=== PATIENT | male | born 1940 | race Caucasian/White ===

== ENCOUNTER → 2018-02-19 08:31 | Outpatient (CLI) | payer MEDICARE, OTHER, SELFPAY ==
--- NOTE | 2018-02-19 08:33 | ECHOCS_ITS ---
Reason For Study: Afib, Aflutter Procedure This was a 2D Doppler, Color Flow transthoracic echocardiogram. Exam performed in department. Left Ventricle Normal LV size. Left ventricular systolic function is normal. The estimated ejection fraction is 65 %. Unable to assess diastolic dysfunction due to arrhythmia. No regional wall motion abnormalities noted. Right Ventricle Normal RV size. Normal systolic function. Atria The left atrium is moderately enlarged. Normal right atrium. Mitral Valve Normal mitral valve. Mild (1+) eccentric mitral valve insufficiency. Tricuspid Valve Normal tricuspid valve. Mild (1+) tricuspid valve insufficiency. Pulmonary artery systolic pressure is 35 mmHg. Aortic Valve Trisinus/trileaflet aortic valve. Pulmonic Valve Normal pulmonic valve. Great Vessels Calcified aortic root. The pulmonary artery is normal size. Normal inferior vena cava. Pericardium/Pleural No pericardial effusion. Medication Definity0.4ml given slow IV push to enhance endocardial definition. MMode/2D Measurements & Calculations LVIDd: 5.8 cm IVSd: 0.82 cm Ao root diam: 3.2 cm LVIDs: 3.7 cm LVPWd: 0.94 cm RVDd: 4.9 cm FS: 36.3 % LAV(MOD-bp): 84.6 ml LAV(MOD-bp) Indexed: 38.2 ml/m2 LA A4 area: 25.7 cm2 RA A4 area: 18.6 cm2 LAV(MOD-sp2): 91.2 ml LAV(MOD-sp4): 77.2 ml Doppler Measurements & Calculations MV E max bisi: 111.1 cm/sec Ao V2 max: 162.9 cm/sec LV V1 max: 114.8 cm/sec Ao max P.6 mmHg LV V1 max P.3 mmHg Ao V2 mean: 122.5 cm/sec Ao mean P.5 mmHg Ao V2 VTI: 35.8 cm PA V2 max: 135.7 cm/sec TR max bisi: 278.7 cm/sec TR max P.1 mmHg Interpretation Summary Normal LV size. Left ventricular systolic function is normal. The estimated ejection fraction is 65 %. Unable to assess diastolic dysfunction due to arrhythmia. Contrast injection was performed. Ordering Physician: Guillermo Downey Referring Physician: Brody Gonzalez Performed By: Jenny Bowers RDCS, RVT
== END ==
PROVIDERS: Family Provider Family Medicine; PCP Family Medicine; Visit Provider Internal Medicine Cardiovascular Disease
DX: R06.09 Other forms of dyspnea (principal); I48.91 Unspecified atrial fibrillation
CPT/HCPCS: 93306; Q9957; A4216; C8929

== ENCOUNTER → 2018-10-01 06:15 | Outpatient (CLI) | payer MEDICARE, OTHER, SELFPAY ==
[2018-09-19 13:56] VITALS: BMI 34.7
[2018-10-01 10:05] LABS: Anion Gap 7 (5-15); BUN 20 mg/dL (7-18); BUN/Creat Ratio 16.5 RATIO (10-20); Calcium,Total 9.2 mg/dL (8.5-10.1); Chloride 106 mmol/L (98-107); Creatinine, Serum 1.21 mg/dL (0.70-1.30); EST Glomerular Filtration Rate 62 mL/min (>60); Est Glom Filt Rate - Afr Amer 74 mL/min (>60); Glucose 98 mg/dL (74-106); Potassium 4.1 mmol/L (3.5-5.1); Sodium Level 140 mmol/L (136-145)
--- NOTE | 2018-10-01 11:00 | STRESSREP ---
Stress Test Report Exercise myocardial perfusion stress test. 77-year-old man with a history of atrial fibrillation. Stress protocol: Resting EKG demonstrates atrial for ablation with a rate of 66 bpm normal intervals are noted resting blood pressure 138/74 mmHg. Patient exercised according to regular Kirby protocol for a total duration of 6 minutes the maximum heart rate attained was 127 bpm which was 89% of maximum predicted heart rate the maximum workload was 7 metabolic equivalents. At rest there were no ST or T wave changes noted suggest ischemia at peak exercise upsloping ST changes only were noted with normally the criteria for ischemia. The patient maintained atrial fibrillation throughout the recording. The resting blood pressure 138/74 with a final blood pressure 142/80 mmHg. Myocardial perfusion protocol. 14.7 mCi of technetium 99m sestamibi was injected at rest. The patient exercised according to regular Kirby protocol. At peak exercise 44.6 mCi of technetium 99m sestamibi was injected stress images were obtained stress and rest images were reconstructed and compared in the short axis vertical long horizontal long axis. Gated images were also obtained Perfusion SPECT analysis: Review of the stress images demonstrate normal uptake of tracer noted in all areas of the myocardium. The resting images similarly demonstrate normal uptake of tracer noted in all the rest of the myocardium. No obvious areas of reversibility are noted suggest ischemia. Gated SPECT analysis: The gated ejection fraction is noted to be 61%. Conclusion: Exercise myocardial perfusion stress test with no evidence of ischemia at a moderate workload. No clinical angina noted. Atrial fibrillation noted. Preserved ejection fraction.
--- OUTSIDE RECORDS SUMMARY | 2018-12-03 01:34 | XMS RPT_ITS ---
:1940 Author Organization [employer] Address [address] [place] [address] Phone Care Team Providers Name Role Phone Yannick Knight MD Unavailable Reason for Visit Reason For Visit Description Start Date Postop - subsequent visit Preliminary reason for visit data, not yet signed by the author as of right shoulder post Right shoulder arthroscopic rotator cuff repair decompression acromioplasty glenohumeral debridement biceps tenotomy on 12/02/2017 Preliminary reason for visit data, not yet signed by the author as of Chief Complaint Chief Complaint Description Start Date right shoulder post Right shoulder arthroscopic rotator cuff repair decompression acromioplasty glenohumeral debridement biceps tenotomy on 12/02/2017 Preliminary chief complaint data, not yet signed by the author as of Instructions Instruction Description Start Date CompletedPlease follow-up with Primary Care Physician or Chief Cruiser for treatment or adjustment of medication regarding elevated blood pressure.Patient advised to follow-up with Primary Care Physician for BMI management. Plan of Care Type Date Detail Appointment 11:00 AM Yannick Knight MD, [address] [facility], [facility], [place], [address], Appointment 11:45 AM Wilmer Franco PT, [address], [place], [address], Patient education \cps-[email or web address]\[email or web address]\htn. pdf Medications Medication Instructions Start Stop Generic Name NDC Provider Date Date FUROSEMIDE TABS 25mg daily FUROSEMIDE TABS 58813856100 Yannick Knight MD PERCOCET 5-325 1-2 every 6 / OXYCODONE-ACETA 33658936525 Yannick S MG TABS hours tablet as 02 MINOPHEN Eugene EDUARDO needed for pain XARELTO 20 MG 1 tablet daily / RIVAROXABAN 52911935678 Nayla TABS 09 [employer] GLUCOSAMINE 1 tablet daily / MISC NATURAL 05206886394 Nayla CHONDROITIN MSM 09 PRODUCTS [employer] TABS ASPIRIN ADULT 1 tablet daily / ASPIRIN 83680009131 Nayla LOW DOSE 81 MG 09 [employer] TBEC METOPROLOL 1 tablet daily / METOPROLOL 95658717619 Nayla SUCCINATE ER 25 09 SUCCINATE [employer]GER MG [id number] ATORVASTATIN 1 tablet daily / ATORVASTATIN 25866838693 Nayla CALCIUM 20 MG 09 CALCIUM [employer] TABS MULTI-VITAMINS 1 tablet daily / MULTIPLE 91279361750 Nayla TABS 09 VITAMIN [employer] RAMIPRIL 10 MG 1 tablet daily / RAMIPRIL 65593111526 Yannick S CAPS 09 Eugene EDUARDO Conditions or Problems Problem Name Problem Onset Status Entry Provider Comment Standard Annotate Code Date Date Description Biceps tendon 064481389 Active Yannick Mata Tear of TRAUMATIC tear (SNOMED CT) / Eugene EDUARDO biceps DUE TO brachii FALL tendon Complete tear 517902807 Active Yannick Mata Full [facility] right [facility] Eugene EDUARDO thickness DUE TO rotator cuff rotator cuff FALL tear Impingement 144096915 Active Yannick Mata Impingement syndrome of (SNOMED CT) Eugene EDUARDO syndrome of right shoulder shoulder region Allergies, Adverse Reactions, Alerts Observed no known allergies at Social History No information available. Vital Signs Date Name Value Unit Description BMI (Body Mass 33.12 kg/m2 Body Mass Index Index) [Ratio] Preliminary vital sign data, not yet signed by the author as of BP Diastolic 71 mm[Hg] blood pressure, diastolic Preliminary vital sign data, not yet signed by the author as of BP Diastolic 82 mm[Hg] blood pressure, diastolic, second observation Preliminary vital sign data, not yet signed by the author as of BP Systolic 151 mm[Hg] blood pressure, systolic Preliminary vital sign data, not yet signed by the author as of BP Systolic 146 mm[Hg] blood pressure, systolic, second observation Preliminary vital sign data, not yet signed by the author as of Heart Rate 69 /min pulse rate E&M Preliminary vital sign data, not yet signed by the author as of Height 70 [in_us] height E&M Preliminary vital sign data, not yet signed by the author as of Height 178 cm height in centimeters E&M Preliminary vital sign data, not yet signed by the author as of Weight Measured 230 [lb_av] weight E&M Preliminary vital sign data, not yet signed by the author as of Weight Measured 105 kg weight in kilograms E&M Preliminary vital sign data, not yet signed by the author as of Results Date Name Value Unit Range Flag Description Office Visit: Postop - subsequent visit, Rm: 14 MEDS REVIEW Done Documentation of current medications (procedure) Preliminary observation data, not yet signed by the author as of Preliminary observation data, not yet signed by the author as of Clinical Summary: [facility] OOP account number Procedures Code Procedure Name Date Entry Date CPT-83539 Physical Therapy G8730 Pain assessment documented as positive - follow-up documented G8427 Current medications documented 1036F Tobacco screening was negative - non user G8417 BMI documented as above normal parameters - follow-up documented G8950 Blood pressure outside of normal parameters - follow-up documented [facility]-[id number] Patient Encounter Medications Administered No information available. Immunizations No information available. Advance Directives There may be information available, but it has not been provided by the sender. Assessments There may be information available, but it has not been provided by the sender. Review of Systems There may be information available, but it has not been provided by the sender. Family History There may be information available, but it has not been provided by the sender. History of Past Illness There may be information available, but it has not been provided by the sender. History of Present Illness There may be information available, but it has not been provided by the sender.
--- OUTSIDE RECORDS SUMMARY | 2018-12-03 01:34 | XMS RPT_ITS ---
:1940 Author Organization [employer] Address [address] [facility] [place] [place] [address] Phone Care Team Providers Name Role Phone [...] as of Instructions Instruction Description Start Date CompletedPatient advised to follow-up with Primary Care Physician for BMI management. Plan of Care Type Date Detail Appointment 02:20 PM Yannick Knight MD, [address] [facility], [place], [address], Appointment 11:00 AM Yarely Sanchez PT, [address], [place], [address], Appointment 02:00 PM Yarely Sanchez PT, [address], [place], [address], Appointment 11:45 AM Yarely Sanchez PT, [address], [place], [address], Appointment 11:00 AM Yarely Daniel PT, [address], [place], [address], Appointment 12:30 PM Yarely Daniel PT, [address], [place], [address], Medications Medication Instructions Start Stop Generic Name ND Provider Date Date HYDROCHLOROTHIAZIDE 1 tablet HYDROCHLOROTHIAZIDE 32614605416 Nayla 25 MG TABS daily 12/17 [employer]CH[employer] TECHNICIAN PERCOCET 5-325 MG 1-2 every 6 OXYCODONE-ACETAMINOP 84139202508 Yannick Mata TABS hours tablet 12/09 JOSÉ LUIS Knight MD as needed for pain XARELTO 20 MG TABS 1 tablet RIVAROXABAN 89691690817 Nayla daily 10/18 [employer]CH[employer] TECHNICIAN GLUCOSAMINE 1 tablet MISC NATURAL 81020649532 Nayla CHONDROITIN MSM TABS daily 10/18 PRODUCTS [employer] MERCHANDISER TECHNICIAN ASPIRIN ADULT LOW 1 tablet ASPIRIN 55524664040 Nayla DOSE 81 MG TBEC daily 10/18 [employer] MERCHAND[employer]ER TECHNICIAN METOPROLOL SUCCINATE 1 tablet METOPROLOL SUCCINATE 62993184282 Nayla ER 25 MG [id number] daily 10/18 [employer] RET[employer] MERCHANDISER TECHNICIAN ATORVASTATIN CALCIUM 1 tablet ATORVASTATIN CALCIUM 26957254645 Nayla 20 MG TABS daily 10/18 [employer] MERCHANDISER TECHNICIAN MULTI-VITAMINS TABS 1 tablet MULTIPLE VITAMIN 03588276553 Nayla daily 10/18 [employer]CH[employer] TECHNICIAN RAMIPRIL 10 MG CAPS 1 tablet RAMIPRIL 53444468932 Yannick Mata daily 10/18 Eugene EDUARDO Conditions or Problems Problem Name Problem Onset Status Entry Provider Comment Standard Annotate Code Date Date Description Biceps tendon 104392833 Active Yannick Mata Tear of TRAUMATIC tear (SNOMED CT) / Eugene EDUARDO biceps DUE TO brachii FALL tendon Complete tear 495539545 Active Yannick Mata Full TRAUMATIC of right (SNOMED CT) / Eugene EDUARDO thickness DUE TO rotator cuff rotator cuff FALL tear Impingement 953865204 Active Yannick S Impingement syndrome of (SNOMED CT) / Eugene EDUARDO syndrome of right shoulder shoulder region Allergies, Adverse Reactions, Alerts Observed no known allergies at Social History No information available. Vital Signs Date Name Value Unit Description BMI (Body Mass 34.56 kg/m2 Body Mass Index Index) [Ratio] Preliminary vital sign data, not yet signed by the author as of BP Diastolic 72 mm[Hg] blood pressure, diastolic Preliminary vital sign data, not yet signed by the author as of BP Systolic 137 mm[Hg] blood pressure, systolic Preliminary vital sign data, not yet signed by the author as of Heart Rate 64 /min pulse rate E&M Preliminary vital sign data, not yet signed by the author as of Height 70 [in_us] height E&M Preliminary vital sign data, not yet signed by the author as of Height 178 cm height in centimeters E&M Preliminary vital sign data, not yet signed by the author as of Weight Measured 240 [lb_av] weight E&M Preliminary vital sign data, not yet signed by the author as of Weight Measured 109 kg weight in kilograms E&M Preliminary vital sign data, not yet signed by the author as of Results Date Name Value Unit Range Flag Description Office Visit: Postop - subsequent visit, Rm: 15 MEDS REVIEW Done Documentation of current medications (procedure) Preliminary observation data, not yet signed by the author as of Preliminary observation data, not yet signed by the author as of Clinical Summary: [facility] OOP account number Clinical Summary: [facility] PTOPACCTNUMB [id number] GPT Physical Therapy Outpatient Account Number Procedures Code Procedure Name Date Entry Date CPT-11999 Physical Therapy G8730 Pain assessment documented as positive - follow-up documented G8427 Current medications documented 1036F Tobacco screening was negative - non user G8417 BMI documented as above normal parameters - follow-up documented G8783 Blood pressure within normal parameters - no follow-up required [facility]-[id number] Patient Encounter Medications Administered No information available. [...]
--- OUTSIDE RECORDS SUMMARY | 2018-12-03 01:34 | XMS RPT_ITS ---
:1940 Author Organization [employer] Address [address] [facility] [place] [address] Phone Care Team Providers Name Role Phone Yannick Knight MD Reason for Visit Reason For Visit Description [...] Plan of Care Type Date Detail Appointment 01:00 PM Yannick Knight MD, [address] [facility], [place], [address], Appointment 02:00 PM Jean-Pierre Ayala MD, [address] [facility], [address], [place], [address], Medications Medication Instructions Start Stop Generic Name NDC Provider Date Date HYDROCHLOROTHIAZIDE 1 tablet HYDROCHLOROTHIAZIDE 71716145290 Nayla 25 MG TABS daily 12/17 [employer]STER[employer] PROGRAMMER XARELTO 20 MG TABS 1 tablet RIVAROXABAN 83642885068 Nayla daily 10/18 [employer] PROGRAMMER GLUCOSAMINE 1 tablet MISC NATURAL 00488690499 Nayla CHONDROITIN MSM TABS daily 10/18 PRODUCTS [employer]STER[employer] PROGRAMMER METOPROLOL SUCCINATE 1 tablet METOPROLOL SUCCINATE 86960765930 Nayla ER 25 MG [id number] daily 10/18 [employer]STER[employer] PROGRAMMER ATORVASTATIN CALCIUM 1 tablet ATORVASTATIN CALCIUM 36367304736 Nayla 20 MG TABS daily 10/18 [employer]STER[employer] PROGRAMMER MULTI-VITAMINS TABS 1 tablet MULTIPLE VITAMIN 10595700093 Nayla daily 10/18 [employer] PROGRAMMER RAMIPRIL 10 MG CAPS 1 tablet RAMIPRIL 77690893956 Yannick Esperanza daily 10/18 Eugene EDUARDO Conditions or Problems Problem Name Problem Onset Status Entry Provider Comment Standard Annotate Code Date Date Description Biceps tendon 689613696 Active Yannick Esperanza Tear of TRAUMATIC tear (SNOMED CT) Knightelda EDUARDO biceps DUE TO brachii FALL tendon Complete tear 752073540 Active Yannick Mata Full TRAUMATIC of right (SNOMED CT) Knightelda EDUARDO thickness DUE TO rotator cuff rotator cuff FALL tear Impingement 563366432 Active Yannick Esperanza Impingement syndrome of (SNOMED CT) Eugene EDUARDO syndrome of right shoulder shoulder region Allergies, Adverse Reactions, Alerts Observed no known allergies at Social History No information available. Vital Signs Date Name Value Unit Description BMI (Body Mass 33.98 kg/m2 Body Mass Index Index) [Ratio] Preliminary vital sign data, not yet signed by the author as of BP Diastolic 82 mm[Hg] blood pressure, diastolic Preliminary vital sign data, not yet signed by the author as of BP Systolic 132 mm[Hg] blood pressure, systolic Preliminary vital sign data, not yet signed by the author as of Heart Rate 74 /min pulse rate E&M Preliminary vital sign data, not yet signed by the author as of Height 70 [in_us] height E&M Preliminary vital sign data, not yet signed by the author as of Height 178 cm height in centimeters E&M Preliminary vital sign data, not yet signed by the author as of Weight Measured 236 [lb_av] weight E&M Preliminary vital sign data, not yet signed by the author as of Weight Measured 107 kg weight in kilograms E&M Preliminary vital sign data, not yet signed by the author as of Results Date Name Value Unit Range Flag Description Office Visit: Postop - subsequent visit, Rm: 17 MEDS REVIEW Done Documentation of current medications (procedure) Preliminary observation data, not yet signed by the author as of Preliminary observation data, not yet signed by the author as of Clinical Summary: [facility] OOP account number Procedures Code Procedure Name Date Entry Date G8730 Pain assessment documented as positive - follow-up documented G8427 Current medications documented 1036F Tobacco screening was negative - non user G8417 BMI documented as above normal parameters - follow-up documented G8783 Blood pressure within normal parameters - no follow-up required [facility]-[id number] Patient Encounter Medications Administered No information available. [...]
--- OUTSIDE RECORDS SUMMARY | 2018-12-03 01:34 | XMS RPT_ITS ---
:1940 Author Organization [employer] Address [address] [place] [address] Phone Care Team Providers Name Role Phone Jamie EDUARDO, Jean-Pierre Mcadams Reason for Visit Reason For Visit Description Start Date New/Est - 1st visit with physician Preliminary reason for visit data, not yet signed by the author as of left foot pain Preliminary reason for visit data, not yet signed by the author as of Chief Complaint Chief Complaint Description Start Date left foot pain Preliminary chief complaint data, not yet signed by the author as of Instructions Instruction Description Start Date CompletedPatient advised to follow-up with Primary Care Physician for BMI management. Plan of Care No information available. Medications Medication Instructions Start Stop Generic Name NDC Provider Date Date HYDROCHLOROTHIAZIDE 1 tablet HYDROCHLOROTHIAZIDE 10235775589 Nayla 25 MG TABS daily 12/17 [employer] D[employer] MECHANIC XARELTO 20 MG TABS 1 tablet RIVAROXABAN 08954532693 Nayla daily 10/18 [employer]CH[employer]IC GLUCOSAMINE 1 tablet MISC NATURAL 08047745280 Nayla CHONDROITIN MSM TABS daily 10/18 PRODUCTS [employer] MECHANIC METOPROLOL SUCCINATE 1 tablet METOPROLOL SUCCINATE 68719997114 Nayla ER 25 MG [id number] daily 10/18 [employer] D[employer] MECHANIC ATORVASTATIN CALCIUM 1 tablet ATORVASTATIN CALCIUM 98784398528 Nayla 20 MG TABS daily 10/18 [employer] D[employer] MECHANIC MULTI-VITAMINS TABS 1 tablet MULTIPLE VITAMIN 49180869855 Nayla daily 10/18 [employer] D[employer] MECHANIC RAMIPRIL 10 MG CAPS 1 tablet RAMIPRIL 96900777503 Yannick Christian daily 10/18 Eugene EDUARDO Conditions or Problems Problem Name Problem Code Onset Status Entry Provider Comment Standard Annotate Date Date Description 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) 05/15 05/15 Jamie EDUARDO 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 Jamie arteriosclerosi MD christian Biceps 726425088 Active Yannick Christian Tear of biceps TRAUMATIC tendon tear (SNOMED CT) 10/18 10/18 Eugene EDUARDO brachii tendon DUE TO FALL Complete 216808431 Active Yannick Christian Full thickness TRAUMATIC tear of (SNOMED CT) 10/18 10/18 Eugene EDUARDO rotator cuff DUE TO right tear FALL rotator cuff Impingement 736901617 Active Yannick Christian Impingement syndrome of (SNOMED CT) 10/18 10/18 Eugene EDUARDO syndrome of right shoulder region shoulder Allergies, Adverse Reactions, Alerts Observed no known allergies at Social History No information available. Vital Signs Date Name Value Unit Description BMI (Body Mass 33.98 kg/m2 Body Mass Index Index) [Ratio] Preliminary vital sign data, not yet signed by the author as of BP Diastolic 79 mm[Hg] blood pressure, diastolic Preliminary vital sign data, not yet signed by the author as of BP Systolic 131 mm[Hg] blood pressure, systolic Preliminary vital sign data, not yet signed by the author as of Heart Rate 68 /min pulse rate E&M Preliminary vital sign [...] Value Unit Range Flag Description Office Visit: New/Est - 1st visit with physician, Rm: 12 MEDS REVIEW Done Documentation of current medications (procedure) Preliminary observation data, not yet signed by the author as of Preliminary observation data, not yet signed by the author as of Clinical [facility] Office Visit: Postop - subsequent visit, Rm: 17 MEDS REVIEW Done Documentation of current medications (procedure) Clinical Summary: [facility] Procedures Code Procedure Name Date Entry Date CPT-40292 XR FOOT 3+ VWS-LT G8730 Pain assessment documented as positive - follow-up documented G8427 Current medications documented 1036F Tobacco screening was negative - non user G8417 BMI documented as above normal parameters - follow-up documented G8783 Blood pressure within normal parameters - no follow-up required 1100F Fallen more than twice or injured themselves from a fall documented 3288F-8P Falls risk not documented - reason not given 0518F-8P Falls plan of care not done for unspecified reasons [id number] Patient Encounter Medications Administered No information available. [...]
--- OUTSIDE RECORDS SUMMARY | 2018-12-03 01:34 | XMS RPT_ITS ---
:1940 Author Organization [employer] Address [address] [place] [address] [place] [address] Phone Care Team Providers Name Role Phone Yannick Knight MD Reason for Visit Reason For Visit Description Start Date Postop - 1st visit Preliminary reason for visit data, not [...] CompletedPlease follow-up with Primary Care Physician or Cash Shortage Investigator for treatment or adjustment of medication regarding elevated blood pressure.Patient advised to follow-up with Primary Care Physician for BMI management. Plan of Care Type Date Detail Appointment 02:00 PM Yannick Knight MD, [address] [facility], [address], [place], [id number], Appointment 11:00 AM Yannick Knight MD, [address] [facility], [address], [place], [address], Patient education [email or web address] Medications Medication Instructions Start Stop Generic Name NDC Provider Date Date PERCOCET 5-325 1-2 every 6 / OXYCODONE-ACETA [id number] Yannick S MG TABS hours tablet as 02 MINOPHEN Eugene EDUARDO needed for pain XARELTO 20 MG 1 tablet daily / RIVAROXABAN [id number] Nayla TABS 09 [employer] GLUCOSAMINE 1 tablet daily / MISC NATURAL [id number] Nayla CHONDROITIN MSM 09 PRODUCTS [employer] TABS ASPIRIN ADULT 1 tablet daily / ASPIRIN [id number] Nayla LOW DOSE 81 MG 09 [employer] TBEC METOPROLOL 1 tablet daily / METOPROLOL [id number] Nayla SUCCINATE ER 25 09 SUCCINATE [employer] MG [id number] ATORVASTATIN 1 tablet daily / ATORVASTATIN [id number] Nayla CALCIUM 20 MG 09 CALCIUM [employer] TABS MULTI-VITAMINS 1 tablet daily / MULTIPLE [id number] Nayla TABS 09 VITAMIN [employer] RAMIPRIL 10 MG 1 tablet daily / RAMIPRIL [id number] Yannick S CAPS 09 Eugene EDUARDO LASIX 40 MG 1 tablet daily / FUROSEMIDE [id number] Yannick S TABS 09 Eugene EDUARDO Conditions or Problems Problem Name Problem Onset Status Entry Provider Comment Standard Annotate Code Date Date Description Biceps tendon 636213877 Active Yannick S Tear of TRAUMATIC tear (SNOMED CT) / Eugene EDUARDO biceps DUE TO brachii FALL tendon Complete tear 363991443 Active Yannick Mata Full TRAUMATIC of right (SNOMED CT) Eugene EDUARDO thickness DUE TO rotator cuff rotator cuff FALL tear Impingement 129540015 Active Yannick S Impingement syndrome of (SNOMED CT) Eugene EDUARDO syndrome of right shoulder shoulder region Allergies, Adverse Reactions, Alerts Observed no known allergies at Social History No information available. Vital Signs Date Name Value Unit Description BMI (Body Mass 33.84 kg/m2 Body Mass Index Index) [Ratio] Preliminary vital sign data, not yet signed by the author as of BP Diastolic 77 mm[Hg] blood pressure, diastolic Preliminary vital sign data, not yet signed by the author as of BP Systolic 156 mm[Hg] blood pressure, systolic Preliminary vital sign data, not yet signed by the author as of Heart Rate 67 /min pulse rate E&M Preliminary vital sign data, not yet signed by the author as of Height 70 [in_us] height E&M Preliminary vital sign data, not yet signed by the author as of Height 178 cm height in centimeters E&M Preliminary vital sign data, not yet signed by the author as of Weight Measured 235 [lb_av] weight E&M Preliminary vital sign data, not yet signed by the author as of Weight Measured 107 kg weight in kilograms E&M Preliminary vital sign data, not yet signed by the author as of Results Date Name Value Unit Range Flag Description Office Visit: Postop - 1st visit, Rm: 17 MEDS REVIEW Done Documentation [...] as above normal parameters - follow-up documented [id number] Patient Encounter Medications Administered No information available. [...]
--- OUTSIDE RECORDS SUMMARY | 2018-12-03 01:35 | XMS RPT_ITS ---
:1940 Author Organization OHIP Support Name Relationship Address Phone R Unavailable Unavailable Unavailable FERRARI, AMNA Unavailable [address] + [place] [address] ELDBE Unavailable [address] + [place] [address] FERRARI, AMNA Unavailable [address] + [place] [address] ELDBE Unavailable [address] + [place] [address] FERRARI, AMNA Unavailable [address] + [place] [address] R Unavailable Unavailable Unavailable FERRARI, AMNA Unavailable [address] + [place] [address] ELDBE Unavailable [address] + [place] [address] FERRARI, AMNA Unavailable [address] + [place] [address] ELDBE Unavailable [address] + [place] [address] FERARRI, AMNA Unavailable [address] + [place] [address] ELDBE Unavailable [address] + [place] [address] FERRARI, AMNA Unavailable [address] + [place] [address] ELDBE Unavailable [address] + [place] [address] FERRARI, AMNA Unavailable [address] + [place] [address] ELDBE Unavailable [address] + [place] [address] FERRARI, AMNA Unavailable [address] + [place] [address] ELDBE Unavailable [address] + [place] [address] DRE FERRARILY Unavailable [address] + [place] [address] ELDBE Unavailable [address] + [place] [address] VONDA AMNA Unavailable [address] + [place] [address] Care Team Providers Name Role Phone Gabi Howard Attending Unavailable DOCTOR, OUT OF TOWN Referring Unavailable Yoko Lock Attending Unavailable Nasreen, Guillermo Attending Unavailable NOT, DEFINED Referring Unavailable Nasreen, Waymart Attending Unavailable Nasreen, Waymart Referring Unavailable MANCINI, RONALDO Primary Care Unavailable Nasreen, Guillermo Attending Unavailable MANCINI, RONALDO Referring Unavailable Sublette, Onel Primary Care Unavailable Roof, Dominic Guzman Attending Unavailable MANCINI, RONALDO Referring Unavailable Sublette, Onel Primary Care Unavailable Nasreen, Guillermo Attending Unavailable Sublette, Onel Referring Unavailable Nasreen, Guillermo Attending Unavailable Nasreen, Guillermo Referring Unavailable MANCINI, RONALDO Primary Care Unavailable Nasreen, Guillermo Attending Unavailable Kirby Barrios Attending Unavailable Sublette, Onel Referring Unavailable Roof, Dominic Guzman Attending Unavailable MANCINI, RONALDO Referring Unavailable MANCINI, RONALDO Primary Care Unavailable Mancini, April Iniguez Attending Unavailable Mancini, A Hira Primary Care Unavailable PROBLEMS PROBLEMS DATE TYPE CONDITION / CODE ATTENDING STATUS SOURCE Unknown Z95.1 - Presence of Nasreen, Guillermo Active [place] 9 aortocoronary bypass Community graft / Z95.1(ICD-10) Hospital Repository Unknown I10 - Essential (primary) Nasreen, Waymart Active [place] 9 hypertension / Community I10(ICD-10) Hospital Repository Unknown E78.00 - Pure Nasreen, Guillermo Active [place] 9 hypercholesterolemia, Community unspecified / Hospital E78.00(ICD-10) Repository Unknown I48.1 - Persistent atrial Nasreen, Guillermo Active [place] 9 fibrillation / Community I48.1(ICD-10) Hospital Repository Unknown G47.33 - Obstructive Lee Active [place] 9 sleep apnea (adult) [facility] (pediatric) / Hospital G47.33(ICD-10) Repository Unknown E66.9 - Obesity, Howard, Active [place] 9 unspecified / [facility] E66.9(ICD-10) Hospital Repository Unknown I48.2 - Chronic atrial Lee, Active [place] 9 fibrillation / [facility] I48.2(ICD-10) Hospital Repository Admitting Unknown / UNK(Unknown) April Mancini Active [place] [address] [facility] [place] Repository Unknown I25.10 - Atherosclerotic Dominic Bowers Active [place] 8 heart disease of quechan Community coronary artery without Hospital angina pectoris / Repository I25.10(ICD-10) Unknown R06.09 - Other forms of Dominic Bowers Active [place] 8 dyspnea / R06.09(ICD-10) [facility] Repository Unknown E78.5 - Hyperlipidemia, Dominic Bowers Active [place] 8 unspecified / Community E78.5(ICD-10) Hospital Repository Unknown I48.91 - Unspecified Dominic Bowers Active [place] 8 atrial fibrillation / Community I48.91(ICD-10) Hospital Repository Unknown Z01.810 - Encounter for Guillermo Downey Active [place] 8 preprocedural [facility] examination / Repository Z01.810(ICD-10) Unknown E78.0 - Pure Guillermo Downey Active [place] 8 hypercholesterolemia / Community E78.0(ICD-10) Hospital Repository PROCEDURES PROCEDURES No Procedure Records FoundRESULTS RESULTS STRESS REPORT Observed: 10/01/2018 Status: F Source: [place] 11:06 AM [facility] REPOSITORY [facility] Services [address] [place] [address] MR#: [id number] Acct: [id number] Name: MARCI FERRARI Rep #: [id number] : 1940 77 From: Guillermo Downey MD Primary Care: RONALDO MANCINI Status: REG CLI Ordering Dr: Sex: M C Stress Test Report Exercise myocardial perfusion stress test. 77-year-old man with a history of atrial fibrillation. Stress protocol: Resting EKG demonstrates atrial for ablation with a rate of 66 bpm normal intervals are noted resting blood pressure 138/74 mmHg. Patient exercised according to regular Kirby protocol for a total duration of 6 minutes the maximum heart rate attained was 127 bpm which was 89% of maximum predicted heart rate the maximum workload was 7 metabolic equivalents. At rest there were no ST or T wave changes noted suggest ischemia at peak exercise upsloping ST changes only were noted with normally the criteria for ischemia. The patient maintained atrial fibrillation throughout the recording. The resting blood pressure 138/74 with a final blood pressure 142/80 mmHg. Myocardial perfusion protocol. 14.7 mCi of technetium 99m sestamibi was injected at rest. The patient exercised according to regular Kirby protocol. At peak exercise 44.6 mCi of technetium 99m sestamibi was injected stress images were obtained stress and rest images were reconstructed and compared in the short axis vertical long horizontal long axis. Gated images were also obtained Perfusion SPECT analysis: Review of the stress images demonstrate normal uptake of tracer noted in all areas of the myocardium. The resting images similarly demonstrate normal uptake of tracer noted in all the rest of the myocardium. No obvious areas of reversibility are noted suggest ischemia. Gated SPECT analysis: The gated ejection fraction is noted to be 61%. Conclusion: Exercise myocardial perfusion stress test with no evidence of ischemia at a moderate workload. No clinical angina noted. Atrial fibrillation noted. Preserved ejection fraction. 10/01/18 1106 <Electronically signed by Guillermo Downey MD> Date Guillermo Downey MD CC: RONALDO MANCINI; Guillermo Downey MD Date Dictated: 10/01/18 1100 Date Transcribed: 10/01/18 1100 Coiled Coil Inspector: CO Signed BASIC METABOLIC Collected: 10/01/2018 Status: F Source: [place] PROFILE (BMP) 9:03 AM [facility] REPOSITORY TYPE CODE TESTS RESULT OUT OF RANGE REFERENCE UNITS LAB L501.0100 74-106 mg/dL Normal GLU 98 Result Comment: Please note revised GLUCOSE reference range effective 2017. LAB L501.1000 7-18 mg/dL High BUN 20 LAB L501.1100 0.70-1.30 mg/dL Normal CREAT,SERUM 1.21 Result Comment: The validity of the calculated GFR AND GFRAA in patients over 70 years has not been determined. Clinical correlation is essential. LAB L501.1110 >60 mL/min Normal EST GFR 62 Result Comment: Non- GFR Calc LAB L501.1115 >60 mL/min Normal EST GFR - AA 74 Result Comment: GFR Calc LAB L501.1300 10-20 RATIO Normal BUN/CRE 16.5 LAB L501.2200 8.5-10.1 mg/dL CA Normal 9.2 LAB L501.5300 136-145 mmol/L NA Normal 140 LAB L501.5600 3.5-5.1 mmol/L K Normal 4.1 LAB L501.5900 98-107 mmol/L CL Normal 106 LAB L501.6100 21.0-32.0 mmol/L Normal CO2 27.0 LAB L501.6200 5-15 Normal GAP 7 Performed By: #### L500.2500 #### [facility] [address] [place], [place], [address] CARDIOLOGY VISIT Observed: 09/19/2018 Status: F Source: [place] REPORT 2:48 PM [facility] REPOSITORY [facility] [address] [place] [address] OFFICE VISIT Date of Service: 09/19/18 MR#: [id number] Acct: [id number] Name: MARCI FERRARI Rep #: [id number] : 1940 Provider: Guillermo Downey MD Age/Sex: 77/M [facility] [facility] Status: Signed HPI [facility] Chief Complaint: Follow-up visit Details: MARCI FERRARI, is a 77 M who presents to the office today for a follow-up. He has a history of coronary artery disease status post carotid bypass surgery in 2003 with BUTTS to LAD, SVG to obtuse marginal branch and SVG to posterior descending artery, atrial fibrillation status post ablation and subsequent failed cardioversion. He has complained of some fatigue when he is going up and down stairs as well as reduced exercise capacity. Occasionally he is also had some heartburn. He is not had to take a nitroglycerin. Is been compliant with all his medications and he exercises approximately 3 times a week. He unfortunately has not lost any weight despite all of his exercise. His last catheterization 2015 demonstrated patency of the saphenous vein graft to obtuse marginal branch and posterior descending artery and he did have distal LAD vessel disease which was not amenable to angioplasty. He did have an echocardiogram performed a few weeks ago with demonstrated preserved ejection fraction and severe biatrial enlargement. His right ventricular systolic pressure was estimated to be 35-40 mmHg. His physical exam here today demonstrates clear lung merino irregular regular heart rate and no pedal edema. Intake Vital Signs09/19/18 Height 5 ft 10 in Intake Visit Reasons: 6 M FU/STEAM TABLE ATTENDANT Allergies No Known Allergies Allergy (Verified 09/19/18 13:57) Medications Nitroglycerin [Nitrostat] 0.4 mg SUBLINGUAL Q5M PRN 04/09/16 [History Confirmed 09/19/18] Glucosam/Kuldeep-Msm1/C/Victoriano/Bosw [Osteo Bi-Flex Caplet] 1 ea PO DAILY 04/03/17 [History Confirmed 09/19/18] Multivitamin [Multiple Vitamins] 1 ea PO DAILY 04/03/17 [History Confirmed 09/19/18] hydrochlorothiazide 25 mg tablet 25 mg PO QDAY 09/26/17 [History Confirmed 09/19/18] atorvastatin 20 mg tablet 20 mg PO DAILY #90 tab 05/05/18 [Rx Confirmed 09/19/18] rivaroxaban 20 mg tablet 20 mg PO DAILY 05/07/18 [History Confirmed 09/19/18] ramipril 10 mg capsule 10 mg PO DAILY #90 cap 06/19/18 [Rx Confirmed 09/19/18] metoprolol succinate ER 25 mg tablet,extended release 24 hr 25 mg PO DAILY #30 tab 08/06/18 [Rx Confirmed 09/19/18] spironolactone 50 mg tablet 50 mg PO DAILY #90 tab 09/19/18 [Rx Confirmed 09/19/18] [facility] Medical History Persistent atrial fibrillation (Chronic) Atherosclerosis of coronary artery of quechan heart without angina pectoris (Chronic) Obesity (BMI 30.0-34.9) (Chronic) Hyperlipidemia (Chronic) TIA (transient ischemic attack) (Chronic) DANIAL (obstructive sleep apnea) (Chronic) Atherosclerosis (Chronic) Essential hypertension (Chronic) Arthritis (Chronic) GERD (gastroesophageal reflux disease) (Chronic) Hearing loss (Chronic) Bilateral hearing loss (Inactive) Bilateral inguinal hernia (Inactive) ADLER (dyspnea on exertion) (Inactive) Edentulous (Inactive) Preop cardiovascular exam (Inactive) Prepatellar bursitis (Inactive) Surgical History H/O coronary artery bypass surgery (Resolved 10/15/03) Repair left leg fracture (Resolved) History of cardioversion (Resolved 06/04/16) History of herniorrhaphy (Resolved) History of left heart catheterization (Resolved 04/11/16) History of radiofrequency ablation procedure for cardiac arrhythmia (Resolved 09/27/09) S/P rotator cuff repair (Resolved) Family History Sister CAD (coronary artery disease) Arthritis Mother CAD (coronary artery disease) Social History current occupational status: employed current occupation: [employer] Smoking Status: Former smoker quit date: 09/09/99 pack-years: 75 alcohol intake: current alcohol intake frequency: holidays/special occasions only substance use type: does not use caffeine: Yes Type: coffee Number of servings: 1 what type of physical activity do you participate in: none seatbelt use: always do you feel safe at home: Yes ROS Const Const: Positive for other (No problems breathing when working out); negative for fatigue, weakness, difficulty sleeping, frequent falls, excessive sweating or headache(s) Eyes Eyes: Negative for loss of peripheral vision, transient loss of vision, blurry vision, tunnel vision or double vision ENT ENT: Negative for headache(s), dizziness, Nosebleed/epistaxis or balance problems Cardio Chest Pain: No Palpitations: No Edema: None (C/O edema on the bottom of his feet) Muscle aches with walking: None Resp Respiratory: Positive for SOB with activity (When climbing stairs); negative for SOB at rest, SOB orthopnea\SOB lying down, paroxysmal nocturnal dyspnea or Cough GI GI: Positive for heartburn and belching; negative nausea, black,tarry stools or vomiting : Negative for hematuria Musc Musc: Negative for balance problems, muscle aches/ myalgia, muscle weakness or joint pain Skin Skin: Negative non-healing lesions, unusual bruising or rash Neuro Neuro: Negative for weakness, frequent falls, headache(s), blurry vision, double vision, dizziness, lightheadedness, orthostatic symptoms, near syncope, syncope or lack of coordination Jules Hematologic/Lymphatic: Negative for easy bruising or easy bleeding Endo Endo: Negative for fatigue, excessive sweating or increased thirst/drinking Psych Psych: Negative for anxiety or depression Allergy Allergy/Immunology: Negative for hives, Negative for rash Cardiology Exam Const Appearance: cooperative, healthy appearing, well developed, well groomed and no acute distress Nutritional Appearance: well nourished and average body habitus Orientation: alert, awake and oriented x3 Head Head: normal to inspection, normocephalic and atraumatic Ears: hearing grossly normal bilaterally and external ears normal Nose: external nose normal, nasal mucous membranes and turbinates normal, nares normal, septum normal, no nasal discharge Face and Sinus: face symmetric Mouth: oral mucosae normal, tongue normal, oropharynx normal and moist mucous membranes Teeth and gingiva: dentition normal Throat: posterior oropharynx normal, tonsils normal and uvula midline Eyes General: appearance normal, both eyes and all related structures Eyelids: eyelids normal Conjunctivae: conjunctivae normal Pupils: PERRL, normal by confrontation and accommodation normal EOM: EOM intact bilaterally Neck Neck: normal visual inspection, trachea midline and no JVD JVD: +5 Carotids: normal carotid upstroke and bounding pulses Chest Chest inspection: normal inspection of the chest, symmetric chest movement and normal respiratory effort Auscultation: Bilateral: Clear to Auscultation Cardio Palpation: normal PMI Rhythm: irregular rhythm Heart sounds: S1 normal and S2 normal GI GI: normal to inspection, soft, no hepatosplenomegaly and bowel sounds present Neuro General: alert, awake, oriented x3, no focal sensory deficit, gait normal and moves all extremities Skin Skin: no rashes or lesions noted Extremities Pulses: Normal: Right Femoral Pulse, Left Femoral Pulse, Right Dorsalis Pedis Pulse, Left Dorsalis Pedis Pulse, Right Posterior Tibial Pulse, Left Posterior Tibial Pulse, Right Radial Pulse, Left Radial Pulse Lower Extremity Edema: None: Bilateral Musculoskel Musculoskeletal: No joint tenderness Psych Psychological: normal affect Assessment AND Plan 1. H/O coronary artery bypass surgery Z95.1 BUTTS-LAD, SVG-OM, SVG-PDA 10/15/2003 Plan He does have a history of coronary artery disease status post carotid bypass surgery with an atretic BUTTS my recommendation would be to perform a stress test as it is not clear to me whether some of his symptoms are an anginal equivalent. Orders Orders: 2. Essential hypertension I10 Plan His blood pressure appears to be under good control on the current medical therapy I will however discontinue his Lasix and put him on spironolactone 50 mg a day and repeat a chemistry profile in approximately 2 weeks. 3. Pure hypercholesterolemia E78.00 Plan He has a history of hyperlipidemia. His most recent lipid profile is not immediately available to me. He will however continue with his high intensity statin. 4. Persistent atrial fibrillation I48.1 Plan He does have a history of persistent atrial fibrillation his ventricular response rate is well controlled his most recent echocardiogram demonstrates preserved ejection fraction with biatrial enlargement. He will continue with anticoagulation at the same dose of the rivaroxaban. Plan Detail Other Medications New: Discontinued: 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 (roll tender) Coding Level of Care Code Off vis,est,level 4 Diagnoses H/O coronary artery bypass surgery Z95.1 Essential hypertension I10 Pure hypercholesterolemia E78.00 Hyperlipidemia type: pure hypercholesterolemia Persistent atrial fibrillation I48.1 Coding Level of Care Code Off vis,est,level 4 Diagnoses H/O coronary artery bypass surgery Z95.1 Essential hypertension I10 Pure hypercholesterolemia E78.00 Hyperlipidemia type: pure hypercholesterolemia Persistent atrial fibrillation I48.1 Supplemental Info Supplemental Information Labs LDL Cholesterol 36 mg/dL (0-130) 03/08/17 HDL Cholesterol 33 mg/dL (40-) L 03/08/17 Triglycerides 65 mg/dL (-199) 03/08/17 VLDL Cholesterol 13 mg/dL (5-40) 03/08/17 Diagnostics Electrocardiogram 04/04/17 Echocardiogram 02/19/18 09/19/18 1448 <Electronically signed by Guillermo Downey MD> Date Guillermo Downey MD Cosigner Signature: Date (if applicable) CC: RONALDO MANCINI PULMONARY VISIT REPORT Observed: 09/11/2018 Status: F Source: [place] 3:41 PM [facility] REPOSITORY [facility] [place] [address] [place] [address] OFFICE VISIT Date of Service: 09/11/18 MR#: [id number] Acct: [id number] Name: MARCI FERRARI Rep #: [id number] : 1940 Provider: Gabi Howard Age/Sex: 77/M Location[facility] Status: Signed Assessment AND Plan 1. DANIAL (obstructive sleep apnea) G47.33 Plan The patient admits that when he uses his CPAP he does feel rested. He has been dealing with an obstacle of a runny nose and sneezing which occurs when using his CPAP. We will try Dymista to control the runny nose prior to bedtime. Encouraged more frequent use. Discussed the relationship between controlling his irregular heart rate or placing him in the best optimal position to stay in a regular rhythm if cardioverted and the use of his CPAP. The patient states that he did not understand that there was a relationship, and is now more motivated to wear the CPAP nightly. Follow-up with Dr. Barrios in 6 months. Contact the office with any new or worsening symptoms in the meantime. Encouraged to adjust humidification and feet for better comfort, plan to evaluate alternative masks also to increase compliance. 2. Obesity (BMI 30.0-34.9) E66.9 Plan Encourage weight loss. 3. Chronic atrial fibrillation I48.2 Plan Complicates exam, plan, care and prognosis. Defer management to cardiology. Plan Detail 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 ([facility]) HPI 6 M FU: Chief Complaint: Shortness of breath on exertion Details: [facility] Comments Details: This is a 77 year old pleasant M, here to follow up for sleep apnea. Current use of pressure support therapy is on average of 6 hours per night when being used, however when calculated the nights not used he reduces his overall average use to 2 hours and 15 minutes, with current settings of 15 cmH2O. MARCI denies any daytime somnolence, dry mouth in the morning, nocturia, snoring through the mask, morning headaches or difficulty with mask leaks. MARCI reports feeling rested in the morning and is benefitting from current therapy. He admits that he does not feel comfortable in the full facemask headgear. Compliance report was reviewed and shows 37% compliance, AHI is controlled at an average of 0.1 events per hour and leaks are not present. He continues to experience shortness of breath on exertion only. Denies any shortness of breath with rest or conversation. He is a physically active person and works out 3 times per week. He denies any chest pain or palpitations. He denies any lower extremity edema. He reports postnasal drip that causes him some discomfort while wearing his Pap device. He is not tried any xguz-yeo-[id number] medications to treat his runny nose. He denies any cough, sputum production or hemoptysis. He has not experienced any fever, chills or body aches. He denies any wheezing, chest tightness, chest pain or palpitations. He does report irregular heartbeat. Intake Vital Signs09/11/18 Height 5 ft 10 in 09/11/18 Weight: 244 lb Intake Visit Reasons: 6 M FU Accompanied by: Self Allergies No Known Allergies Allergy (Verified 09/11/18 07:43) Medications Nitroglycerin [Nitrostat] 0.4 mg SUBLINGUAL Q5M PRN 04/09/16 [History Confirmed 09/11/18] Glucosam/Kuldeep-Msm1/C/Victoriano/Bosw [Osteo Bi-Flex Caplet] 1 ea PO DAILY 04/03/17 [History Confirmed 09/11/18] Multivitamin [Multiple Vitamins] 1 ea PO DAILY 04/03/17 [History Confirmed 09/11/18] hydrochlorothiazide 25 mg tablet 25 mg PO QDAY 09/26/17 [History Confirmed 09/11/18] atorvastatin 20 mg tablet 20 mg PO DAILY #90 tab 05/05/18 [Rx Confirmed 09/11/18] furosemide 40 mg tablet 40 mg PO QDAY PRN tab 05/07/18 [History Confirmed 09/11/18] rivaroxaban 20 mg tablet 20 mg PO DAILY 05/07/18 [History Confirmed 09/11/18] ramipril 10 mg capsule 10 mg PO DAILY #90 cap 06/19/18 [Rx Confirmed 09/11/18] metoprolol succinate ER 25 mg tablet,extended release 24 hr 25 mg PO DAILY #30 tab 08/06/18 [Rx Confirmed 09/11/18] [facility] Medical History retirement (current) use of anticoagulants (Chronic) Atherosclerosis of coronary artery of quechan heart without angina pectoris (Chronic) Preop cardiovascular exam (Chronic) ADLER (dyspnea on exertion) (Chronic) Arthritis (Chronic) Obesity (BMI 30.0-34.9) (Chronic) Long-term use of high-risk medication (Chronic) Hyperlipidemia (Chronic) HTN (hypertension) (Chronic) TIA (transient ischemic attack) (Acute) DANIAL (obstructive sleep apnea) (Chronic) Bilateral inguinal hernia (Acute) Atherosclerosis (Chronic) Atrial fibrillation (Chronic) Atrial fib/flutter, transient (Chronic) Bilateral hearing loss (Chronic) Edentulous (Chronic) Essential hypertension (Chronic) Gastroesophageal reflux disease (Chronic) Prepatellar bursitis (Chronic) Surgical History S/P hernia repair (Resolved) History of left heart catheterization (Chronic 04/11/16) History of cardioversion (Chronic 06/04/16) Repair left leg fracture (Resolved) 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/03) S/P rotator cuff repair (Acute) Family History Sister CAD (coronary artery disease) Arthritis Mother CAD (coronary artery disease) Social History current occupational status: employed 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 @ [employer] Smoking Status: Former smoker quit date: 09/09/99 pack-years: 75 alcohol intake: current alcohol intake frequency: holidays/special occasions only substance use type: does not use caffeine: Yes Type: coffee Number of servings: 1 what type of physical activity do you participate in: none seatbelt use: always do you feel safe at home: Yes Review of Systems Const CONSTITUTIONAL: Positive fatigue; negative anorexia, body ache, chills, daytime sleepiness, fever(s), night sweats, oral thrush, stops breathing during sleep, weight loss, sleeping in chair, weight loss, weight gain, frequent colds, seasonal allergies, other, headache(s) or orthopnea EETM Ear Nose Throat Mouth: Positive hearing normal, nasal discharge and post nasal drip; negative hard of hearing, hoarseness, dry mouth in morning, change in vision, itchy eyes, eye pain, swallowing Difficulty, ear pain, nose bleed, headache(s), mouth pain, nasal congestion, sinus pain, sinus pressure, sore throat or other Cardio Cardiovascular: Positive murmur; negative chest pain, chest pain at rest, chest pain with activity, irregular heart rhythm, edema, shortness of breath when lying down, palpitations or other Resp Respiratory: Positive as per HPI, shortness of breath shortness of breath: Positive with activity and cough cough: Positive non-productive (from nasal drainage); negative pain with cough, wheezing, chest congestion, chest tightness, pain on inspiration, inhalers, increase use of rescue inhalers, snoring, apnea or other Gastro Gastrointestional: Negative bloody stools, change in appetite, difficulty swallowing, reflux, hematemesis, melena stool, loose stool, constipation or other Genitourinary: Negative blood in urine, nocturia, pain with urination or other Musc Musculoskeletal: Negative body pain, back pain, neck pain or other Skin/Breast Skin/Breast: Negative dry skin, itching, rash, unusual bruising, breast lump or other Neuro Neurological: Negative restless legs, confusion, weakness or other Psych Psychocological: Negative abnormal sleep pattern, anxiety, thoughts of hurting self/others, hopelessness or other Lymph Lymphatic: Negative easy bleeding, easy bruising, swollen lymph nodes or other Exam Const Constitutional: Positive conversant, cooperative, in no acute respiratory distress, healthy appearing, well developed, well nourished and good hygiene Head Head: Positive normocephalic and atraumatic; negative cyanosis of lips/distal nose Eyes Eye: Positive clear conjunctiva; negative nystagmus or scleral abnormality Ears Ear: Positive hearing normal and external ears normal; negative hard of hearing Nose Nose: Positive external nose normal and no nasal discharge; negative epistaxis Mouth Mouth: Positive post nasal drip, oral mucosae normal, no lesions, dentures and crowded posterior oropharynx; negative malodorous breath or oral thrush present Mallampati Score: III: Mallampati Score Neck Neck: Positive normal visual inspection, full ROM and trachea midline; negative lymphadenopathy, JVD or tender Chest Wall Chest: Positive normal inspection of the chest and symmetric chest movement; negative increased A/P diameter Resp lung sounds: Positive clear to auscultation, good air exchange, normal expiratory time and normal respiratory effort; negative diminished, wheezes, rhonchi, rales, dullness to percussion or wheeze present on forced exhalation Cardio Cardiac: Positive murmur murmur: Positive systolic and RUSB; negative regular rate or regular rhythm GI GI: Positive normal to inspection; negative distended Genitourinary: Positive deferred Musc Musculoskeletal: Positive steady gait and ROM normal; negative kyphosis or scoliosis Skin Pulmonary Skin Exam: Positive intact; negative rash Pulses Pulse: Yes pulses normal x4 extremities Extremities Extremities: Yes capillary refill normal, No clubbing, No cyanosis, No edema Neuro Neurologic: Yes conversant, Yes no focal neuro deficits, Yes normal concentration, Yes understands questions, Yes cooperative, Yes normal cognition Lymph Lymphatic: No lymphadenopathy, No tenderness, No cervical adenopathy Psych Appearance: Positive grossly normal, eye contact and well kempt Mental Status: Positive mental status grossly normal Affect: Positive normal affect Coding Level of Care Code Off vis,est,level 3 Diagnoses DANIAL (obstructive sleep apnea) G47.33 Obesity (BMI 30.0-34.9) E66.9 Chronic atrial fibrillation I48.2 Atrial fibrillation type: chronic 09/11/18 1541 <Electronically signed by Gabi CHOI> Date Gabi CHOI Cosigner Signature: Date (if applicable) CC: CDLECHO Observed: 08/25/2018 Status: UNK Source: [facility] 12:54 PM [facility] REPOSITORY INTERPRETING PHYSICIAN: Patrick Saha MD ATTENDING PHYSICIAN: April Iniguez ORDERING/REFERRING PHYSICIAN: DATE OF STUDY: 08/25/2018 TECH #: [id number] MMC: MOBILE: X Weight: 245 lbs. oz. Height: 70 ins. BP: 166/66 HR: Patient is in atrial fibrillation at 68 beats per minute. BSA 2.3 meters squared. DIAGNOSIS/REASON FOR STUDY: Atrial fibrillation with complaints of dyspnea, history of coronary artery bypass surgery. Complete Echo (TTE) X Limited Echo Transesophageal (WANDER) Definity ACTUAL VALUES ADULTS CHILDREN 1. Aortic Valve Normal: Abnormal: Aortic Valve Systolic Opening 1.5 - 2.5 cm. Aortic Root Dimension 3.2 2.0 - 4.0 cm. B. Left Atrial Diameter < 4.0 cm. C. Left Ventricle End Diastolic Diameter 6.7 < 5.5 cm. End Systolic Diameter 5.4 < 3.5 cm. D. Right Ventricle End Diastolic Diameter < 2.5 cm. E. Septal Wall Thickness End Diastole 1.6 < 1.3 cm. Systole 2.1 F. Posterior Wall Thickness < 1.3 cm. End Diastole 1.5 End Systole 2.4 Left atrium is 32 cm square. [facility] PATIENT NAME: MARCI FERRARI [address] [place] MEDICAL REC #: [id number] [place] [address] ADMIT DATE: DISCHARGE DATE: ATTENDING JADAY: April Mancini ECHOCARDIOGRAM REPORT Left ventricle: Left ventricle is mildly dilated. The visually estimated ejection fraction is 55% to 60% with normal wall motion. Left atrium is markedly dilated. Right atrium is dilated. Right ventricle has normal dimensions. Normal right ventricular systolic function. No masses, clots, or thrombi noted on transthoracic echocardiogram. The aortic valve Aortic valve is trileaflet. There is adequate aortic valve excursion. No evidence of aortic stenosis. The mean gradient is 4 mmHg. The mitral valve: Mitral valve has adequate mitral excursion. No evidence of mitral stenosis. The mean gradient is 2 mmHg. The tricuspid valve is grossly normal. Pulmonic valve is not optimally visualized. Color Doppler interrogation reveals mild mitral regurgitation. Mild tricuspid regurgitation. Right ventricular systolic pressure between 35 and 40 mmHg. Atrial septum is intact. No pericardial effusion. IMPRESSION: 1. The patient had atrial fibrillation during the study. Mildly dilated left ventricle. Visually estimated ejection fraction 55% to 60%. 2. Markedly dilated left atrium at 32 cm square. 3. Dilated right atrium at 22 cm square. 4. Right ventricular systolic pressure between 35 and 40 mmHg. 5. Mild mitral and tricuspid regurgitation. Patrick Saha MD [id number] [facility] File#: [id number] Verified/Reviewed by [address] PATIENT NAME: MARCI FERRARI [address] [place] MEDICAL REC #: [id number] [place] [address] ADMIT DATE: DISCHARGE DATE: ATTENDING PHY: April Mancini ECHOCARDIOGRAM REPORT CARDIOLOGY VISIT Observed: 05/07/2018 Status: F Source: [facility] REPORT 2:06 PM [facility] REPOSITORY [facility] [address] [place] [address] OFFICE VISIT Date of Service: 05/07/18 MR#: [id number] Acct: [id number] Name: MARCI FERRARI Rep #: [id number] : 1940 Provider: KOURTNEY Bowers Age/Sex: 77/M [facility] Status: Signed HPI HPI Details: MARCI FERRARI, is a 77 M who presents to the office today for a cardiovascular outpatient follow-up. He has a history of coronary artery disease status post carotid bypass surgery in 2003 with BUTTS to LAD, SVG to obtuse marginal branch and SVG to posterior descending artery, atrial fibrillation status post ablation and subsequent failed cardioversion. Pt. denies chest, arm, jaw, or neck discomfort. His exercise tolerance is stable with planned regimen every other day. Pt. denies symptoms of palpitations, lightheadedness, dizziness, near syncope, or syncopal episodes. Pt. denies edema or claudication issues. Pt. denies orthopnea, PND, blood in urine, blood in stool or myalgia. He states his energy level remains low. Intake Vital Signs05/07/18 Height 5 ft 10 in 05/07/18 Weight: 237 lb 05/07/18 Body Mass Index (BMI) 34.0 05/07/18 Blood Pressure 142/78 05/07/18 Blood Pressure Location Lt brachial Intake Visit Reasons: 6 M FU Accompanied by: none Is patient in pain?: No Allergies No Known Allergies Allergy (Verified 04/08/18 06:29) Medications Ramipril [Altace] 10 mg PO DAILY 11/17/14 [History Confirmed 05/07/18] Metoprolol(XL)Succ [Toprol Xl (Beta Carole)] 25 mg PO DAILY 04/09/16 [History Confirmed 05/07/18] Nitroglycerin [Nitrostat] 0.4 mg SUBLINGUAL Q5M PRN 04/09/16 [History Confirmed 05/07/18] Glucosam/Kuldeep-Msm1/C/Victoriano/Bosw [Osteo Bi-Flex Caplet] 1 ea PO DAILY 04/03/17 [History Confirmed 05/07/18] Multivitamin [Multiple Vitamins] 1 ea PO DAILY 04/03/17 [History Confirmed 05/07/18] hydrochlorothiazide 25 mg tablet 25 mg PO QDAY 09/26/17 [History Confirmed 05/07/18] atorvastatin 20 mg tablet 20 mg PO DAILY #90 tab 05/05/18 [Rx Confirmed 05/07/18] furosemide 40 mg tablet 40 mg PO QDAY PRN tab 05/07/18 [History Confirmed 05/07/18] rivaroxaban 20 mg tablet 20 mg PO DAILY 05/07/18 [History Confirmed 05/07/18] PFSH Medical History retirement (current) use of anticoagulants (Chronic) Atherosclerosis of coronary artery of quechan heart without angina pectoris (Chronic) Preop cardiovascular exam (Chronic) ADLER (dyspnea on exertion) (Chronic) Arthritis (Chronic) Obesity (BMI 30.0-34.9) (Chronic) Long-term use of high-risk medication (Chronic) Hyperlipidemia (Chronic) HTN (hypertension) (Chronic) TIA (transient ischemic attack) (Acute) DANIAL (obstructive sleep apnea) (Chronic) Bilateral inguinal hernia (Acute) Atherosclerosis (Chronic) Atrial fibrillation (Chronic) Atrial fib/flutter, transient (Chronic) Bilateral hearing loss (Chronic) Edentulous (Chronic) Essential hypertension (Chronic) Gastroesophageal reflux disease (Chronic) Prepatellar bursitis (Chronic) Surgical History S/P hernia repair (Resolved) History of left heart catheterization (Chronic 04/11/16) History of cardioversion (Chronic 06/04/16) Repair left leg fracture (Resolved) 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/03) S/P rotator cuff repair (Acute) Family History Sister CAD (coronary artery disease) Arthritis Mother CAD (coronary artery disease) Social History current occupational status: employed 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 Smoking Status: Former smoker quit date: 09/09/99 pack-years: 75 alcohol intake: current alcohol intake frequency: holidays/special occasions only substance use type: does not use caffeine: Yes Type: coffee Number of servings: 1 what type of physical activity do you participate in: none seatbelt use: always do you feel safe at home: Yes ROS Const Const: Positive for fatigue; negative for weakness, body ache, fever(s) or chills ENT ENT: Negative for dizziness Cardio Chest Pain: No Palpitations: No Edema: None Muscle aches with walking: None Resp Respiratory: Negative for SOB with activity, SOB at rest, SOB orthopnea\SOB lying down or paroxysmal nocturnal dyspnea GI GI: Negative nausea, black,tarry stools, bright, red blood in stools or vomiting blood/hematemesis : Negative for hematuria or frequent nighttime urination/ nocturia Musc Musc: Negative for muscle aches/ myalgia Skin Skin: Negative non-healing lesions or rash Neuro Neuro: Negative for weakness, dizziness, lightheadedness, near syncope, syncope or orthostatic symptoms Endo Endo: Positive for fatigue Allergy Allergy/Immunology: Negative for rash Supplemental Info Heart catheterization from April 2016 showed a preserved ejection fraction a patent saphenous vein graft to the posterior descending artery, saphenous vein graft to obtuse marginal branch which was patent and diffuse disease involving his quechan vessels. The left main had an ostial 30% stenosis and 40-50% eccentric distal stenosis. The left anterior descending artery and multiple areas of 10-20, 30-40, and distal 70-80% stenosis not amenable to angioplasty. The first diagonal vessel had moderate proximal disease, the circumflex artery had moderate 30% stenosis and 70% proximal stenosis. The right coronary artery was totally occluded. The left internal mammary artery to the left anterior descending artery was atretic. Echocardiogram from February 2018 showed normal LV size, estimated ejection fraction 65%, moderately enlarged left atrium, mild mitral valve insufficiency, mild tricuspid valve insufficiency, RVSP of 35 mmHg, and unable to assess diastolic dysfunction due to arrhythmia. Assessment AND Plan 1. Atherosclerosis of quechan coronary artery of quechan heart without angina pectoris I25.10 BUTTS-LAD, SVG-OM, SVG-PDA 10/15/2003 Plan - [facility] Heart catheterization from April 2016 showed patent SVG to posterior descending artery, patent SVG to obtuse marginal branch, BUTTS to LAD was atretic, and distal LAD had 70-80% stenosis not amenable by angioplasty. His most recent echocardiogram in February 2018 showed ejection fraction of 65%. Patient denies any chest pain, arm pain, jaw pain, neck pain, or fatigue suggestive of angina at this time. We will continue to monitor this. We will not make any medication regimen changes and will continue risk factor modification. His lower extremity edema is completely resolved and he takes his Lasix on a as needed basis. 2. S/P CABG x 3 Z95.1 BUTTS-LAD, SVG-OM, SVG-PDA Plan - [facility] He will continue current treatment plan as outlined above. 3. Chronic atrial fibrillation I48.2 Selam - [facility] His heart rate remains well controlled. He is currently on factor Xa inhibitor. He will continue current medications and we will continue to monitor. 4. Essential hypertension I10 Plan - [facility] His blood pressure is slightly elevated today in office. However, he has yet to take his blood pressure medications. He was asked to continue current medications, continue to monitor blood pressure at home, and contact office if it is consistently elevated. 5. Pure hypercholesterolemia E78.00 Plan - [facility] Lipid panel from February 2017 show cholesterol: 82, HDL: 33, LDL: 36, and triglycerides: 65. Patient will continue the current cholesterol lowering medication. We will continue to monitor this. Plan Detail Other Medications Changed: Additional Comments - [facility] Discussed the above patient with Dr. Downey, he agrees with the plan of care. Thank you for allowing us to participate in the patients plan of care, if you have any questions please do not hesitate to call. This note was generated using a voice recognition system and there may be incorrect words, spelling or punctuation that were not noted when reviewing the office note prior to saving. 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) Coding Level of Care Code Off vis,est,level 3 Diagnoses Atherosclerosis of quechan coronary artery of quechan heart without angina pectoris I25.10 Coronary Disease-Associated Artery/Lesion type: quechan artery S/P CABG x 3 Z95.1 Chronic atrial fibrillation I48.2 Atrial fibrillation type: chronic Essential hypertension I10 Hypertension type: essential hypertension Pure hypercholesterolemia E78.00 Hyperlipidemia type: pure hypercholesterolemia Coding Level of Care Code Off vis,est,level 3 Diagnoses Atherosclerosis of quechan coronary artery of quechan heart without angina pectoris I25.10 Coronary Disease-Associated Artery/Lesion type: quechan artery S/P CABG x 3 Z95.1 Chronic atrial fibrillation I48.2 Atrial fibrillation type: chronic Essential hypertension I10 Hypertension type: essential hypertension Pure hypercholesterolemia E78.00 Hyperlipidemia type: pure hypercholesterolemia 05/07/18 1239 <Electronically signed by Dominic CHOI> Date Dominic Bowers NP-C 05/07/18 1406<Electronically signed by Guillermo Downey MD> Cosigner Signature: Date (if applicable) Guillermo Downey MD CC: RONALDO MANCINI PULMONARY VISIT REPORT Observed: 04/08/2018 Status: F Source: [place] 8:[address] [facility] of [address] [place] [address] OFFICE VISIT Date of Service: 04/08/18 MR#: [id number] Acct: [id number] Name: MARCI FERRARI Rep #: [id number] : 1940 Provider: Kirby Barrios MD Age/Sex: 77/M Location: [facility] Status: Signed Assessment AND Plan Problems 1. DANIAL (obstructive sleep apnea) G47.33 2. Obesity (BMI 30.0-34.9) E66.9 3. ADLER (dyspnea on exertion) R06.09 Plan Patient's compliance report shows an acceptable AHI of 0.9 and well-controlled leak with current set up. Stressed the patient the goal of using CPAP for 6-8 hours per night. Also discussed the role of weight loss and the overall disease plan of care. Patient has not had any significant improvement in overall condition, but this would be expected given his relative lack of compliance. Fortunately, patient does have a reversible condition that is leading to noncompliance. Patient will address the rash with his primary care physician. Will bring patient back for evaluation in 6 months with nurse practitioner. Patient's goal is to lose 20 pounds in the interim. Encourage weight loss. Encourage compliance with DANIAL therapy. Plan Detail 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 ([facility]) HPI 2 M FU: Chief Complaint: DANIAL Details: Patient is a 77-year-old male, currently under the care of Dr. Marx, who presents for evaluation secondary to obstructive sleep apnea. Since last visit, patient denies any ER visits, hospitalizations or prednisone burst. Patient does report the development of rash across his forehead. Patient did see his primary care physician and has been placed on a steroid cream. Patient states he has not been compliant with DANIAL therapy over the last couple of weeks secondary to irritation of his rash. Patient states his rash is somewhat improved after use a steroid cream, but is still present. Patient states no problems with the interface otherwise. Patient does report some dry mouth at the end of the night. Patient does report some fatigue during the day currently, but does not taking naps. Patient is currently working at [employer] 5 days a week without complication. Documentation personally reviewed with the patient Compliance report (March 2018): Attempted usage 47% of days for an average of 4 hours 24 minutes on CPAP 15 cm of water with a residual AHI of 0.9 and well- controlled leak. Intake Vital Signs04/08/18 Height 5 ft 10 in 04/08/18 Weight: 107.955 kg Intake Visit Reasons: 2 M FU DME Vendor: John Accompanied by: Self Allergies No Known Allergies Allergy (Verified 04/08/18 06:29) Medications Aspirin E.C. [Ecotrin] 81 mg PO QODAY 11/17/14 [History Confirmed 04/08/18] Atorvastatin Calcium [Lipitor] 20 mg PO QHS 11/17/14 [History Confirmed 04/08/18] Ramipril [Altace] 10 mg PO DAILY 11/17/14 [History Confirmed 04/08/18] Metoprolol(XL)Succ [Toprol Xl (Beta Carole)] 25 mg PO DAILY 04/09/16 [History Confirmed 04/08/18] Nitroglycerin [Nitrostat] 0.4 mg SUBLINGUAL Q5M PRN 04/09/16 [History Confirmed 04/08/18] Rivaroxaban [Xarelto] 20 mg PO DAILY 06/01/16 [History Confirmed 04/08/18] Glucosam/Kuldeep-Msm1/C/Victoriano/Bosw [Osteo Bi-Flex Caplet] 1 ea PO DAILY 04/03/17 [History Confirmed 04/08/18] Multivitamin [Multiple Vitamins] 1 ea PO DAILY 04/03/17 [History Confirmed 04/08/18] Oxycodone HCl/Acetaminophen [Percocet 5/325] 1 - 2 tab PO Q4H PRN PRN #20 tab 04/15/17 [Rx Confirmed 04/08/18] hydrochlorothiazide 25 mg tablet 25 mg PO QDAY 09/26/17 [History Confirmed 04/08/18] furosemide 40 mg tablet 40 mg PO QDAY #30 tab 12/18/17 [Rx Confirmed 04/08/18] 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) Atherosclerosis of coronary artery of quechan heart without angina pectoris (Chronic) Preop cardiovascular exam (Chronic) ADLER (dyspnea on exertion) (Chronic) Arthritis (Chronic) Obesity (BMI 30.0-34.9) (Chronic) Long-term use of high-risk medication (Chronic) Hyperlipidemia (Chronic) HTN (hypertension) (Chronic) TIA (transient ischemic attack) (Acute) DANIAL (obstructive sleep apnea) (Chronic) Bilateral inguinal hernia (Acute) Atherosclerosis (Chronic) Atrial fibrillation (Chronic) Atrial fib/flutter, transient (Chronic) Bilateral hearing loss (Chronic) Edentulous (Chronic) Essential hypertension (Chronic) Gastroesophageal reflux disease (Chronic) Prepatellar bursitis (Chronic) Surgical History S/P hernia repair (Resolved) History of left heart catheterization (Chronic 04/11/16) History of cardioversion (Chronic 06/04/16) Repair left leg fracture (Resolved) 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/03) S/P rotator cuff repair (Acute) Family History Sister CAD (coronary artery disease) Arthritis Mother CAD (coronary artery disease) Social History current occupational status: employed 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 Smoking Status: Former smoker quit date: 09/09/99 pack-years: 75 alcohol intake: current alcohol intake frequency: holidays/special occasions only substance use type: does not use caffeine: Yes Type: coffee Number of servings: 1 what type of physical activity do you participate in: none seatbelt use: always do you feel safe at home: Yes Review of Systems Const CONSTITUTIONAL: Negative anorexia, body ache, chills, daytime sleepiness, fever(s), night sweats, oral thrush, stops breathing during sleep, weight loss, sleeping in chair, fatigue, weight loss, weight gain, frequent colds, seasonal allergies, other, headache(s) or orthopnea EETM Ear Nose Throat Mouth: Positive hearing normal; negative hard of hearing, hoarseness, dry mouth in morning, change in vision, itchy eyes, eye pain, swallowing Difficulty, ear pain, nose bleed, headache(s), mouth pain, nasal congestion, nasal discharge, post nasal drip, sinus pain, sinus pressure, sore throat or other Cardio Cardiovascular: Negative chest pain, chest pain at rest, chest pain with activity, irregular heart rhythm, edema, shortness of breath when lying down, palpitations, murmur or other Resp Respiratory: Positive as per HPI and shortness of breath shortness of breath: Positive with activity; negative pain with cough, wheezing, chest congestion, cough, chest tightness, pain on inspiration, inhalers, increase use of rescue inhalers, snoring, apnea or other Gastro Gastrointestional: Negative bloody stools, change in appetite, difficulty swallowing, reflux, hematemesis, melena stool, loose stool, constipation or other Genitourinary: Negative blood in urine, nocturia, pain with urination or other Musc Musculoskeletal: Negative body pain, back pain, neck pain or other Skin/Breast Skin/Breast: Positive rash (forehead -macular and slightly raised); negative dry skin, itching, unusual bruising, breast lump or other Neuro Neurological: Negative restless legs, confusion, weakness or other Psych Psychocological: Negative abnormal sleep pattern, anxiety, thoughts of hurting self/others, hopelessness or other Lymph Lymphatic: Negative easy bleeding, easy bruising, swollen lymph nodes or other Exam Const Constitutional: Positive conversant, cooperative, in no acute respiratory distress, healthy appearing, well developed, well nourished, good hygiene and obese; negative wearing supplemental oxygen or appears older than stated age Head Head: Positive normocephalic and atraumatic; negative cyanosis of lips/distal nose, microcephalic or macrocephalic Eyes Eye: Positive clear conjunctiva; negative nystagmus or scleral abnormality Ears Ear: Positive hearing normal and external ears normal; negative hard of hearing Nose Nose: Positive external nose normal and septum normal; negative epistaxis, nasal polyp or no nasal discharge Mouth Mouth: Positive oral mucosae normal, no lesions, dentures and crowded posterior oropharynx; negative post nasal drip, malodorous breath or oral thrush present Mallampati Score: III: Mallampati Score Neck Neck: Positive normal visual inspection, thick neck, full ROM, trachea midline and female neck greater than 37 cm (15 in); negative lymphadenopathy or JVD Chest Wall Chest: Positive normal inspection of the chest; negative increased A/P diameter, symmetric chest movement, crepitus or tenderness Resp lung sounds: Positive clear to auscultation, good air exchange, normal expiratory time and normal respiratory effort; negative wheezes, rhonchi, rales, wheeze present on forced exhalation or dullness to percussion Cardio Cardiac: Positive regular rate, regular rhythm, S1 normal and S2 normal; negative murmur, rub or gallop GI GI: Positive obese, normal to inspection and normal bowel sounds; negative distended or ascites Genitourinary: Positive deferred Musc Musculoskeletal: Positive steady gait and ROM normal; negative using an assistive device for ambulation, kyphosis or scoliosis Skin Pulmonary Skin Exam: Positive rash (forehead -macular and slightly raised) and intact; negative lesion, ulcers or dermal atrophy Pulses Pulse: Yes radial pulses present Extremities Extremities: Yes capillary refill normal, No clubbing, No cyanosis, No edema, No stasis dermatitis Neuro Neurologic: Yes conversant, Yes no focal neuro deficits, Yes normal concentration, Yes understands questions, Yes cooperative, Yes normal cognition, Yes normal coordination Lymph Lymphatic: No lymphadenopathy Psych Appearance: Positive grossly normal Mental Status: Positive mental status grossly normal Mood: Positive congruent mood Affect: Positive normal affect Coding Level of Care Code Off vis,est,level 3 Diagnoses DANIAL (obstructive sleep apnea) G47.33 Obesity (BMI 30.0-34.9) E66.9 ADLER (dyspnea on exertion) R06.09 04/08/18 0843 <Electronically signed by Kirby Barrios MD> Date Kirby Barrios MD Cosigner Signature: Date (if applicable) CC: Onel Marx MD ECHO, COMPLETE W/ Observed: 02/19/2018 Status: F Source: [facility] CONTRAST 10:18 AM [facility] REPOSITORY [facility] Cardiovascular Services [address] [place] [id number] Echo Complete W/ Contrast 02/19/18 0901 MR#: [id number] Acct: [id number] Name: MARCI FERRARI Rep #: [id number] : 1940 77 From: Guillermo Downey MD Attending Dr: Guillermo Downey MD Status: REG CLI Ordering Dr: Guillermo Downey MD Date: 02/19/18 Location: [facility] Sex: M C Admitted: Reason For Study: Afib, Aflutter Procedure This was a 2D Doppler, Color Flow transthoracic echocardiogram. Exam performed in department. Left Ventricle Normal LV size. Left ventricular systolic function is normal. The estimated ejection fraction is 65 %. Unable to assess diastolic dysfunction due to arrhythmia. No regional wall motion abnormalities noted. Right Ventricle Normal RV size. Normal systolic function. Atria The left atrium is moderately enlarged. Normal right atrium. Mitral Valve Normal mitral valve. Mild (1+) eccentric mitral valve insufficiency. Tricuspid Valve Normal tricuspid valve. Mild (1+) tricuspid valve insufficiency. Pulmonary artery systolic pressure is 35 mmHg. Aortic Valve Trisinus/trileaflet aortic valve. Pulmonic Valve Normal pulmonic valve. Great Vessels Calcified aortic root. The pulmonary artery is normal size. Normal inferior vena cava. Pericardium/Pleural No pericardial effusion. Medication Definity0.4ml given slow IV push to enhance endocardial definition. MMode/2D Measurements AND Calculations LVIDd: 5.8 cm IVSd: 0.82 cm Ao root diam: 3.2 cm LVIDs: 3.7 cm LVPWd: 0.94 cm RVDd: 4.9 cm FS: 36.3 % LAV(MOD-bp): 84.6 ml LAV(MOD-bp) Indexed: 38.2 ml/m2 LA A4 area: 25.7 cm2 RA A4 area: 18.6 cm2 LAV(MOD-sp2): 91.2 ml LAV(MOD-sp4): 77.2 ml Doppler Measurements AND Calculations MV E max bisi: 111.1 cm/sec Ao V2 max: 162.9 cm/sec LV V1 max: 114.8 cm/sec Ao max P.6 mmHg LV V1 max P.3 mmHg Ao V2 mean: 122.5 cm/sec Ao mean P.5 mmHg Ao V2 VTI: 35.8 cm PA V2 max: 135.7 cm/sec TR max bisi: 278.7 cm/sec TR max P.1 mmHg Interpretation Summary Normal LV size. Left ventricular systolic function is normal. The estimated ejection fraction is 65 %. Unable to assess diastolic dysfunction due to arrhythmia. Contrast injection was performed. Ordering Physician: Guillermo Downey Referring Physician: Ronaldo Mancini Performed By: Jenny Bowers, IBPIN, RVT 02/19/18 1018 Date Gulilermo Downey MD CC: RONALDO MANCINI; Guillermo Downey MD Date Dictated: 02/19/18 0901 Date Transcribed: 02/19/18 1018 Coiled Coil Inspector: Signed CARDIOLOGY VISIT Observed: 12/19/2017 Status: F Source: [facility] REPORT 9:43 AM [facility] REPOSITORY [facility] [address] [place] [address] OFFICE VISIT Date of Service: 12/18/17 MR#: [id number] Acct: [id number] Name: MARCI FERRARI Rep #: [id number] : 1940 Provider: KOURTNEY Bowers Age/Sex: 77/M [facility] Status: Signed HPI HPI Details: MARCI FERRARI, is a 77 M who presents to the office today for a history of coronary artery disease status post carotid bypass surgery in 2003 with BUTTS to LAD, SVG to obtuse marginal branch and SVG to posterior descending artery, atrial fibrillation status post ablation and subsequent failed cardioversion. Patient is status post recent rotator cuff surgery. While being evaluated postoperatively by surgeon he was noted to have lower extremity pitting edema. He was asked to present to our office for further evaluation. Pt. denies chest, arm, jaw, or neck discomfort. His exercise tolerance is stable. Pt. denies symptoms of palpitations, lightheadedness, dizziness, near syncope, or syncopal episodes. Pt. denies edema or claudication issues. Pt. denies orthopnea, PND, fever, chills, blood in urine, blood in stool, myalgia, or unexplainable fatigue. He states an increase in lower extremity edema and shortness of breath. He stopped using CPAP d/t recent surgery. He is sleeping in a recliner due to recent shoulder surgery. Intake Vital Signs12/18/17 Height 5 ft 10 in 12/18/17 Weight: 242 lb 12/18/17 Body Mass Index (BMI) 34.7 Intake Visit Reasons: pre-op for Dr. Dietrich Accompanied by: Is patient in pain?: Yes (shoulder) Pain scale (1-10): 3 Allergies No Known Allergies Allergy (Verified 12/18/17 10:02) Medications Aspirin E.C. [Ecotrin] 81 mg PO QODAY 11/17/14 [History Confirmed 12/18/17] Atorvastatin Calcium [Lipitor] 20 mg PO QHS 11/17/14 [History Confirmed 12/18/17] Ramipril [Altace] 10 mg PO DAILY 11/17/14 [History Confirmed 12/18/17] Metoprolol(XL)Succ [Toprol Xl (Beta Carole)] 25 mg PO DAILY 04/09/16 [History Confirmed 12/18/17] Nitroglycerin [Nitrostat] 0.4 mg SUBLINGUAL Q5M PRN 04/09/16 [History Confirmed 12/18/17] Rivaroxaban [Xarelto] 20 mg PO DAILY 06/01/16 [History Confirmed 12/18/17] Glucosam/Kuldeep-Msm1/C/Victoriano/Bosw [Osteo Bi-Flex Caplet] 1 ea PO DAILY 04/03/17 [History Confirmed 12/18/17] Multivitamin [Multiple Vitamins] 1 ea PO DAILY 04/03/17 [History Confirmed 12/18/17] Oxycodone HCl/Acetaminophen [Percocet 5/325] 1 - 2 tab PO Q4H PRN PRN #20 tab 04/15/17 [Rx Confirmed 12/18/17] hydrochlorothiazide 25 mg tablet 25 mg PO QDAY 09/26/17 [History Confirmed 12/18/17] furosemide 40 mg tablet 40 mg PO QDAY #30 tab 12/18/17 [Rx Confirmed 12/18/17] PFSH Medical History retirement (current) use of anticoagulants (Chronic) Atherosclerosis of coronary artery of quechan heart without angina pectoris (Chronic) Preop cardiovascular exam (Chronic) ADLER (dyspnea on exertion) (Chronic) Arthritis (Chronic) Obesity (BMI 30.0-34.9) (Chronic) Long-term use of high-risk medication (Chronic) Hyperlipidemia (Chronic) HTN (hypertension) (Chronic) TIA (transient ischemic attack) (Acute) DANIAL (obstructive sleep apnea) (Chronic) Bilateral inguinal hernia (Acute) Atherosclerosis (Chronic) Atrial fibrillation (Chronic) Atrial fib/flutter, transient (Chronic) Bilateral hearing loss (Chronic) Edentulous (Chronic) Essential hypertension (Chronic) Gastroesophageal reflux disease (Chronic) Prepatellar bursitis (Chronic) Surgical History S/P hernia repair (Resolved) History of left heart catheterization (Chronic 04/11/16) History of cardioversion (Chronic 06/04/16) Repair left leg fracture (Resolved) 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/03) S/P rotator cuff repair (Acute) Family History Sister CAD (coronary artery disease) Arthritis Mother CAD (coronary artery disease) Social History current occupational status: employed 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 @ [employer] Smoking Status: Former smoker quit date: 09/09/99 pack-years: 75 alcohol intake: current alcohol intake frequency: holidays/special occasions only substance use type: does not use caffeine: Yes Type: coffee Number of servings: 1 what type of physical activity do you participate in: none seatbelt use: always do you feel safe at home: Yes ROS Const Const: Negative for fatigue, weakness, body ache, fever(s) or chills ENT ENT: Negative for dizziness Cardio Chest Pain: No Palpitations: No Edema: Bilateral Muscle aches with walking: None Resp Respiratory: Positive for SOB with activity; negative for SOB at rest, SOB orthopnea\SOB lying down or paroxysmal nocturnal dyspnea GI GI: Negative nausea, black,tarry stools, bright, red blood in stools or vomiting blood/hematemesis : Negative for hematuria or frequent nighttime urination/ nocturia Musc Musc: Negative for muscle aches/ myalgia Neuro Neuro: Negative for weakness, dizziness, lightheadedness, near syncope, syncope or orthostatic symptoms Endo Endo: Negative for fatigue Cardiology Exam Const Appearance: cooperative, healthy appearing, comfortable and no acute distress Orientation: alert, awake and oriented x3 Head Head: normal to inspection Mouth: oral mucosae normal Neck Neck: no JVD and normal visual inspection Carotids: normal carotid upstroke Chest Chest inspection: normal inspection of the chest and normal respiratory effort Auscultation: Bilateral: Clear to Auscultation Cardio Rate: regular rate Rhythm: irregular rhythm Heart sounds: S1 normal and S2 normal; negative rub or gallop GI GI: normal to inspection Neuro General: alert, awake, oriented x3 and CN's II-XI intact bilaterally Skin Skin: no rashes or lesions noted Extremities Pulses: Normal: Right Posterior Tibial Pulse, Left Posterior Tibial Pulse, Right Radial Pulse, Left Radial Pulse Lower Extremity Edema: +2: Bilateral Psych Psychological: normal affect Supplemental Info Heart catheterization from April 2016 showed a preserved ejection fraction a patent saphenous vein graft to the posterior descending artery, saphenous vein graft to obtuse marginal branch which was patent and diffuse disease involving his quechan vessels. The left main had an ostial 30% stenosis and 40-50% eccentric distal stenosis. The left anterior descending artery and multiple areas of 10-20, 30-40, and distal 70-80% stenosis not amenable to angioplasty. The first diagonal vessel had moderate proximal disease the circumflex artery had moderate 30% stenosis and 70% proximal stenosis. The right coronary artery was totally occluded. The left internal mammary artery to the left anterior descending artery was atretic. Echocardiogram from November 2015 showed an estimated ejection fraction of 65% and moderately enlarged left atrium. Assessment AND Plan 1. Dyspnea on exertion R06.09 Plan - STEPH Centeno Patient's echocardiogram from November 2015 showed estimated ejection fraction of 65%. Patient does present with symptoms consistent with fluid volume overload. This may be multifactorial given his recent surgery, stopping CPAP therapy, and more sedentary lifestyle. Patient will take Lasix 40 mg p.o. daily for 3 days and call us with an update on both symptoms and lower extremity edema. If symptoms persist despite adequate diuresis echocardiogram will be considered for further evaluation. Hopefully with diuresis patient's symptoms resolve. We will reassess patient's symptoms over the phone in approximately 2-3 days. We will repeat a BMP approximately 2 weeks to assess electrolytes and kidney function. Orders Orders: 2. Atherosclerosis of quechan coronary artery of quechan heart without angina pectoris I25.10 [facility], SVG-PDA 10/15/2003 Selam - STEPH Centeno Catheterization from April 2016 showed patent SVG to posterior descending artery, patent SVG to obtuse marginal branch, BUTTS to LAD was atretic, and distal LAD had 70-80% stenosis not amenable by angioplasty. Patient denies any chest pain, arm pain, jaw pain, neck pain, or fatigue suggestive of angina at this time. We will continue to monitor this. We will not make any medication regimen changes and will continue risk factor modification. Orders Orders: 3. Essential hypertension I10 STEPH Baires Patient's blood pressure is slightly elevated today in office. Hopefully after diuresis this improves to baseline. We will reassess this at next office visit. Orders Orders: 4. Pure hypercholesterolemia E78.00 STEPH Baires Lipid panel from February 2017 show cholesterol: 82, HDL: 33, LDL: 36, and triglycerides: 65. Patient continue the current cholesterol lowering medication. We will continue to monitor this. 5. Chronic atrial fibrillation I48.2 Plan - STEPH Centeno Echocardiogram from November 2015 showed moderately enlarged left atrium. He will continue with current medications which include patient's heart rate is well controlled today in office. He will continue current medications which include beta-carole, diuretic, and factor Xa inhibitor. We will continue to monitor this. 6. DANIAL (obstructive sleep apnea) G47.33 Plan - STEPH Centeno Patient was asked to resume CPAP therapy as this may be a contributory source of his shortness of breath and/or fluid buildup. Patient was agreeable to this. Plan Detail Other Orders Orders: Other Medications New: Additional Comments - STEPH Centeno Discussed the above patient with Dr. Downey, he agrees with the plan of care. Thank you for allowing us to participate in the patients plan of care, if you have any questions please do not hesitate to call. This note was generated using a voice recognition system and there may be incorrect words, spelling or punctuation that were not noted when reviewing the office note prior to saving. Coding Level of Care Code Off vis,est,level 3 Diagnoses Dyspnea on exertion R06.09 Atherosclerosis of quechan coronary artery of quechan heart without angina pectoris I25.10 Coronary Disease-Associated Artery/Lesion type: quechan artery Essential hypertension I10 Hypertension type: essential hypertension Pure hypercholesterolemia E78.00 Hyperlipidemia type: pure hypercholesterolemia Chronic atrial fibrillation I48.2 Atrial fibrillation type: chronic DANIAL (obstructive sleep apnea) G47.33 Coding Level of Care Code Off vis,est,level 3 Diagnoses Dyspnea on exertion R06.09 Atherosclerosis of quechan coronary artery of quechan heart without angina pectoris I25.10 Coronary Disease-Associated Artery/Lesion type: quechan artery Essential hypertension I10 Hypertension type: essential hypertension Pure hypercholesterolemia E78.00 Hyperlipidemia type: pure hypercholesterolemia Chronic atrial fibrillation I48.2 Atrial fibrillation type: chronic DANIAL (obstructive sleep apnea) G47.33 12/19/17 0732 <Electronically signed by Dominic Bowers NP-C> Date Dominic Bowers PASTRY COOK APPRENTICE-C 12/19/17 0943<Electronically signed by Guillermo Downey MD> Cosigner Signature: Date (if applicable) Guillermo Downey MD CC: RONALDO MANCINI CARDIOLOGY VISIT Observed: 11/06/2017 Status: F Source: [facility] REPORT 2:22 PM [facility] REPOSITORY [address] [place] [address] OFFICE VISIT Date of Service: 11/06/17 MR#: [id number] Acct: [id number] Name: MARCI FERRARI Rep #: [id number] : 1940 Provider: Guillermo Downey MD Age/Sex: 76/M Location[place] [facility] Status: Signed [facility] Chief Complaint: Preop evaluation. Details: MARCI FERRARI, is a 76 M who presents to the office today for preop evaluation. He is a gentleman with a history of coronary artery disease status post carotid bypass surgery atrial fibrillation status post ablation and subsequent atrial fibrillation failed cardioversion. As you remember he also had bypass surgery in 2003 with a left internal mammary artery to left anterior descending artery saphenous vein graft obtuse marginal branch and saphenous vein graft to posterior descending artery. He tells me that he does have shoulder problems and is scheduled to undergo a rotator cuff repair. He has had no neck arm or jaw discomfort suggest angina no dizziness or diaphoresis no near syncope or syncope. He has been compliant with his medications. He is here for preoperative evaluation. His physical exam demonstrates clear lung merino irregular irregular rate and no pedal edema. He has had no neck arm or jaw discomfort to suggest angina and no issues with claudication. Intake Vital Signs11/06/17 Height 5 ft 10 in Intake Visit Reasons: Pre op for shoulder surgery at [facility] TIFF Allergies No Known Allergies Allergy (Verified 11/06/17 13:48) Medications Aspirin E.C. [Ecotrin] 81 mg PO QODAY 11/17/14 [History Confirmed 11/06/17] Atorvastatin Calcium [Lipitor] 20 mg PO QHS 11/17/14 [History Confirmed 11/06/17] Ramipril [Altace] 10 mg PO DAILY 11/17/14 [History Confirmed 11/06/17] Metoprolol(XL)Succ [Toprol Xl (Beta Carole)] 25 mg PO DAILY 04/09/16 [History Confirmed 11/06/17] Nitroglycerin [Nitrostat] 0.4 mg SUBLINGUAL Q5M PRN 04/09/16 [History Confirmed 11/06/17] Rivaroxaban [Xarelto] 20 mg PO DAILY 06/01/16 [History Confirmed 11/06/17] Gluc/Kuldeep-MSM#1/C/Victoriano/Niraj/Bor [Osteo Bi-Flex Caplet] 1 ea PO DAILY 04/03/17 [History Confirmed 11/06/17] Multivitamin [Multiple Vitamins] 1 ea PO DAILY 04/03/17 [History Confirmed 11/06/17] Oxycodone HCl/Acetaminophen [Percocet 5/325] 1 - 2 tab PO Q4H PRN PRN #20 tab 04/15/17 [Rx Confirmed 09/27/17] hydrochlorothiazide 25 mg tablet 25 mg PO QDAY 09/26/17 [History Confirmed 11/06/17] PFSH Medical History Atherosclerosis of coronary artery of quechan heart without angina pectoris (Chronic) Arthritis (Chronic) Obesity (BMI 30.0-34.9) (Chronic) Long-term use of high-risk medication (Chronic) Hyperlipidemia (Chronic) HTN (hypertension) (Chronic) TIA (transient ischemic attack) (Acute) DANIAL (obstructive sleep apnea) (Chronic) Bilateral inguinal hernia (Acute) Atherosclerosis (Chronic) Atrial fibrillation (Chronic) Atrial fib/flutter, transient (Chronic) Bilateral hearing loss (Chronic) Edentulous (Chronic) Essential hypertension (Chronic) Gastroesophageal reflux disease (Chronic) Prepatellar bursitis (Chronic) Surgical History History of left heart catheterization (Chronic 04/11/16) History of cardioversion (Chronic 06/04/16) Repair left leg fracture (Resolved) 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/03) Family History Sister CAD (coronary artery disease) Arthritis Mother CAD (coronary artery disease) Social History current occupational status: employed current occupation: [employer] Smoking Status: Former smoker quit date: 09/09/99 pack-years: 75 ROS Const Const: Positive for fatigue; negative for weakness, difficulty sleeping, frequent falls, headache(s) or excessive sweating Eyes Eyes: Negative for loss of peripheral vision, transient loss of vision, blurry vision or double vision ENT ENT: Negative for headache(s), dizziness, Nosebleed/epistaxis or balance problems Cardio Chest Pain: No Edema: None Muscle aches with walking: None Resp Respiratory: Negative for SOB with activity, SOB at rest, SOB orthopnea\SOB lying down or paroxysmal nocturnal dyspnea GI GI: Negative nausea or heartburn : Negative for hematuria Musc Musc: Negative for muscle aches/ myalgia, muscle weakness, joint pain or balance problems Skin Skin: Negative non-healing lesions, unusual bruising or rash Neuro Neuro: Negative for weakness, frequent falls, blurry vision, headache(s), dizziness, lightheadedness, orthostatic symptoms or double vision Jules Hematologic/Lymphatic: Negative for easy bruising Endo Endo: Positive for fatigue; negative for excessive sweating or increased thirst/drinking Psych Psych: Negative for anxiety or depression Allergy Allergy/Immunology: Negative for hives, Negative for rash Cardiology Exam Const Appearance: cooperative, healthy appearing, well developed, well groomed and no acute distress Nutritional Appearance: well nourished and average body habitus Orientation: alert, awake and oriented x3 Head Head: normal to inspection, normocephalic and atraumatic Ears: hearing grossly normal bilaterally and external ears normal Nose: external nose normal, nasal mucous membranes and turbinates normal, nares normal, septum normal, no nasal discharge Face and Sinus: face symmetric Mouth: oral mucosae normal, tongue normal, oropharynx normal and moist mucous membranes Teeth and gingiva: dentition normal Throat: posterior oropharynx normal, tonsils normal and uvula midline Eyes General: appearance normal, both eyes and all related structures Eyelids: eyelids normal Conjunctivae: conjunctivae normal Pupils: PERRL, normal by confrontation and accommodation normal EOM: EOM intact bilaterally Neck Neck: normal visual inspection, trachea midline and no JVD JVD: +5 Carotids: normal carotid upstroke and bounding pulses Chest Chest inspection: normal inspection of the chest, symmetric chest movement and normal respiratory effort Auscultation: Bilateral: Clear to Auscultation Cardio Palpation: normal PMI Rhythm: irregular rhythm Heart sounds: S1 normal and S2 normal GI GI: normal to inspection, soft, no hepatosplenomegaly and bowel sounds present Neuro General: alert, awake, oriented x3, no focal sensory deficit, gait normal and moves all extremities Skin Skin: no rashes or lesions noted Extremities Pulses: Normal: Right Femoral Pulse, Left Femoral Pulse, Right Dorsalis Pedis Pulse, Left Dorsalis Pedis Pulse, Right Posterior Tibial Pulse, Left Posterior Tibial Pulse, Right Radial Pulse, Left Radial Pulse Lower Extremity Edema: None: Bilateral Musculoskel Musculoskeletal: No joint tenderness Psych Psychological: normal affect Assessment AND Plan 1. Preop cardiovascular exam Z01.810 Plan In terms of his preoperative cardiovascular status he appears to be quite stable I do not see any contraindications. You do remember that he underwent a cardiac catheterization a year and a half ago. At that time demonstrated preserved ejection fraction a patent saphenous vein graft to the posterior descending artery, saphenous vein graft to obtuse marginal branch which was patent and diffuse disease involving his quechan vessels. The left main had an ostial 30% stenosis and 40-50% eccentric distal stenosis. The left anterior descending artery and multiple areas of 10-20, 30-40, and distal 70-80% stenosis not amenable to angioplasty. The first diagonal vessel had moderate proximal disease the circumflex artery had moderate 30% stenosis and 70% proximal stenosis. The right coronary artery was totally occluded. The left internal mammary artery to the left anterior descending artery was atretic. He has done quite well on medical therapy and I do not see any contraindication to him undergoing the above surgery. 2. Chronic atrial fibrillation I48.2 Plan He does have chronic persistent atrial for ablation with a controlled ventricular response rate he is anticoagulated with Xarelto and the plan will be for him to stop the Xarelto 2-3 days before the event. He should however continue his other medications up to and including the morning of surgery. 3. Essential hypertension I10 Plan His blood pressure is under excellent control on the current medical regimen and no changes will be made. He remains on hydrochlorothiazide the beta- carole KELSEY inhibitor and his most recent echocardiogram had demonstrated preserved ejection fraction with no segmental wall motion abnormalities present. 4. Pure hypercholesterolemia E78.00; E78.0 Plan He remains on a medium intensity statin with lipid levels obtained last summer with an LDL of 36 total cholesterol of 82 and an HDL of 33. He will continue to follow up with the above. At this time I do not see any contraindications or reservations to him undergoing the intended surgery. Thank you for allowing me to participate in his care. Plan Detail 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 ([facility]) Coding Level of Care Code Off vis,est,level 4 Diagnoses Preop cardiovascular exam Z01.810 Chronic atrial fibrillation I48.2 Atrial fibrillation type: chronic Essential hypertension I10 Hypertension type: essential hypertension Pure hypercholesterolemia E78.00; E78.0 Hyperlipidemia type: pure hypercholesterolemia Coding Level of Care Code Off vis,est,level 4 Diagnoses Preop cardiovascular exam Z01.810 Chronic atrial fibrillation I48.2 Atrial fibrillation type: chronic Essential hypertension I10 Hypertension type: essential hypertension Pure hypercholesterolemia E78.00; E78.0 Hyperlipidemia type: pure hypercholesterolemia 11/06/17 1422 <Electronically signed by Guillermo Downey MD> Date Guillermo Downey MD Cosigner Signature: Date (if applicable) CC: RONALDO MANCINI; RAISA DIETRICH ALLERGIES ALLERGIES DATE TYPE / CODE NAME / CODE REACTION SEVERITY SOURCE 09/19/2018 Drug No Known Unknown [facility] Allergy/4160 Allergies/F00 Hospital 61409(SNOMED 1229010(RXNOR Repository CT) M) ENCOUNTERS ENCOUNTERS ADMIT/DISCHARGE ACCOUNT ADMITTING ENCOUNTER LOCATION SOURCE NUMBER CLASS 10/01/2018 [id number] Ambulatory [place] 1 [facility] Hospital ing:[facility] Repository 09/19/2018/ [id number] Ambulatory BMSBuilding:B [place] [address] [facility] Repository 09/19/2018 [id number] Ambulatory BMSBuilding:B [place] [address] [facility] Repository 09/11/2018/ [id number] Ambulatory BMSBuilding:B [place] 9 2 [facility] Repository 08/25/2018 [id number] Ambulatory [place] [address] [facility] [place] g:H[facility] Repository 05/07/2018/ [id number] Ambulatory BMSBuilding:B [place] [address] [facility] Repository 04/08/2018/ [id number] Ambulatory BMSBuilding:B [place] 8 9 [facility] Repository 02/19/2018 [id number] Ambulatory [place] [facility] Hospital ing[facility] Repository 02/19/2018 [id number] Ambulatory BMSBuilding:W [place] 5 [facility] Repository 01/21/2018 [id number] Ambulatory BMSBuilding:B [place] [address] [facility] Repository 12/18/2017/ [id number] Ambulatory BMSBuilding:B [place] [address] [facility] Repository 11/06/2017/ [id number] Ambulatory BMSBuilding:B [place] [address] Repository PAYERS PAYERS ENCOUNTER GUARANTOR PAYER SUBSCRIBER SOURCE 10/01/2018 MARCI Huynh Primary MARCI SCHNEIDERW352 [place]AB[place] Insurance:MEDICARE SHAWDOB: [facility], PART A BPolicy Number: [id number] [facility] [address]Umr: [id number] Repository Date:2018-09-19 () 10/01/2018 Secondary MARCI D [place] Insurance:HUMANA SHAWDOB: [facility] [id number] Hospital Number: Repository [id number] Date:9294-85-40UD [address] [address]SU: 10/01/2018 Tertiary NOT GIVENUNK [place] Insurance:SELF PAY [facility] Number: Effective Repository Date:2018-09-19 09/19/2018 MARCI D Primary MARCI D [place] [id number] FABIAN Insurance:MEDICARE SHAWDOB: [facility], PART A BPolicy Number: [id number] Health Center [address]Ego: [id number] Repository Date:2018-05-07 () 09/19/2018 Secondary MARCI D [place] Insurance:HUMANA SHAWDOB: [facility] [id number] Hospital Number: Repository [id number] Date:4791-57-17AJ [address] [address]QB: 09/19/2018 Tertiary NOT GIVENUNK [place] Insurance:SELF PAY [facility] Number: Effective Repository Date:2018-08-29 09/19/2018 MARCI D Primary MARCI D [place] [id number] FABIAN Insurance:MEDICARE SHAWDOB: [facility], PART A BPolicy Number: [id number] Health Center [address]Fjc: [id number] Repository Date:2018-09-19 () 09/19/2018 Secondary MARCI D [place] Insurance:HUMANA SHAWDOB: [facility] [id number] Hospital Number: Repository [id number] Date:5197-19-66XO [address] [address]XT: 09/19/2018 Tertiary NOT GIVENUNK [place] Insurance:SELF PAY [facility] Number: Effective Repository Date:2018-09-19 09/11/2018 [facility] Primary MARCI Huynh [place] [id number] [place]ABIAN Insurance:MEDICARE SHAWDOB: [facility], PART A BPolicy Number: [id number] [place] [address]Ddk: [id number] Repository Date:2018-04-08 (HP) 09/11/2018 Secondary MARCI Lino [place] Insurance:[facility]NA [facility] [id number] Hospital Number: Repository [id number] Date:7816-85-65DU [address] [place] [address]TL: 09/11/2018 Tertiary NOT GIVENUNK [place] Insurance:SELF PAY [facility] Number: Effective Repository Date:2018-09-10 08/25/2018 [facility] [id number] FABIAN Insurance:MEDICAREPoli [facility] [place] Number: [place]ository [place] [id number]: [id number] Date:2004-12-08 [id number] CODE [id number] [address]SY: 08/25/2018 Secondary [facility] Insurance:[facility] Number: Repository [id number] Date:2015-09-09[address] [place] [address]QP: 05/07/2018 [facility] [place] Insurance:MEDICARE SHAWDOB: [facility], PART A BPolicy Number: [id number] [place] [address]Qdt: [id number] Repository Date:2017-11-06 (HP) 05/07/2018 Secondary MARCI D [place] Insurance:HUMANA SHAWDOB: Community COMMERCIALPolicy [id number] Hospital Number: Repository [id number] Date:5292-51-79PK [address] [place] [address]UQ: 05/07/2018 Tertiary NOT GIVENUNK [place] Insurance:SELF PAY [facility] Number: Effective Repository Date:2018-05-07 04/08/2018 MARCI D Primary MARCI Lino [place] [id number] FABIAN Insurance:MEDICARE SHAWDOB: [facility] [place], PART A BPolicy Number: [id number] Health Center [address]Fwt: [id number] Repository Date:2017-09-27 () 04/08/2018 Secondary MARCI D [place] Insurance:HUMANA SHAWDOB: [facility] COMMERCIALPolicy [id number] Hospital Number: Repository [id number] Date:4418-47-85AA [address] [address]IP: 04/08/2018 Tertiary NOT GIVENUNK [place] Insurance:SELF PAY [facility] Number: Effective Repository Date:2017-12-18 02/19/2018 MARCI D Primary MARCI SCHNEIDERW352 [place] Insurance:MEDICARE SHAWDOB: [facility] [place], PART A BPolicy Number: [id number] Health Center [address]Uxw: [id number] Repository Date:2017-12-31 () 02/19/2018 Secondary MARCI D [place] Insurance:HUMANA SHAWDOB: [facility] COMMERCIALPolicy [id number] Hospital Number: Repository [id number] Date:2378-13-74FB [address] [address]NB: 02/19/2018 Tertiary NOT GIVENUNK [place] Insurance:SELF PAY [facility] Number: Effective Repository Date:2017-12-31 02/19/2018 MARCI D Primary MARCI Lino [place] SCHNEIDERW352 [place]AB[place] Insurance:MEDICARE SHAWDOB: [facility] [place], PART A BPolicy Number: [id number] [place] [address]Ghq: [id number] Repository Date:2017-12-31 () 02/19/2018 Secondary MARCI D [place] Insurance:HUMANA SHAWDOB: [facility] [id number] Hospital Number: Repository [id number] Date:7852-24-73NG [address] [place] [address]BI: 02/19/2018 Tertiary NOT GIVENUNK [place] Insurance:SELF PAY [facility] Number: Effective Repository Date:2018-02-19 01/21/2018 MARCI D Primary Insurance:SELF NOT GIVENUNK [place] [id number] FABIAN PAY [facility], Number: Effective [facility] [id number]: Date:2017-08-19 Repository () 12/18/2017 MARCI D Primary MARCI D [place] [id number] FABIAN Insurance:MEDICARE SHAWDOB: [facility], PART A BPolicy Number: [id number] Health Center [address]Opu: [id number] Repository Date:2017-12-17 () 12/18/2017 Secondary MARCI D [place] Insurance:HUMANA SHAWDOB: [facility] [id number] Hospital Number: Repository [id number] Date:3765-73-67FU [address] [place] [address]CI: 12/18/2017 Tertiary NOT GIVENUNK [place] Insurance:SELF PAY [facility] Number: Effective Repository Date:2017-12-18 11/06/2017 MARCI D Primary MARCI D [place] [id number] FABIAN Insurance:MEDICARE SHAWDOB: [facility], PART A BPolicy Number: [id number] Health Center [address]Ncv: [id number] Repository Date:2017-10-29 () 11/06/2017 Secondary MARCI D [place] Insurance:HUMANA SHAWDOB: [facility] [id number] Hospital Number: Repository [id number] Date:5818-79-42[address] [address], [place] [address]PD: 11/06/2017 Tertiary NOT GIVENRILEY [place] Insurance[facility]LF [facility]: Effective Repository Date:2017-10-29
== END ==
PROVIDERS: Family Provider Family Medicine; PCP Family Medicine; Referring Provider Internal Medicine Cardiovascular Disease; Visit Provider Internal Medicine Cardiovascular Disease
DX: I25.10 Atherosclerotic heart disease of native coronary artery without angina pectoris (principal); Z95.1 Presence of aortocoronary bypass graft
CPT/HCPCS: 36415; 78452; 80048; 93017; A9500; A4216; J2785

== ENCOUNTER → 2018-12-31 08:24 | Outpatient (CLI) | payer MEDICARE, OTHER, SELFPAY ==
[2018-09-19 13:56] VITALS: BMI 34.7
--- NOTE | 2018-12-31 08:27 | BI_ITS ---
MAMMOGRAPHY - BILATERAL DIAGNOSTIC REASON FOR EXAM: Male, 78 years old. Male with bilateral nipple pain x1 month that is become more intense. Nipples are hard although time since the pain started. PERTINENT HISTORY: Non-contributory. TECHNIQUE: Digital examination. Mediolateral oblique (MLO) and craniocaudad (CC) views of both breasts were obtained. CAD: CAD was performed on this study. COMPARISON: None. Baseline examination. FINDINGS: There are small, essentially symmetric foci of subareolar tissue. There is no nodule or mass within this tissue. These findings are most consistent with minimal gynecomastia. However, recommend ultrasonography as above. Subareolar sonography to ensure absence of mass or other discrete process. There is a 7.6 mm maximum dimension well-circumscribed mass in the left upper outer quadrant positioned approximately 6.5 cm from the nipple base. This finding appears most consistent with an intramammary lymph node. Recommend further evaluation with sonography for more definitive characterization. The right breast appears stable without evidence of malignancy. BI/DIAG MAMM W/CAD, BILAT IMPRESSION: Findings most consistent with small amount of bilateral gynecomastia. No superimposed nodule or mass is identified on mammography. Probable left upper outer quadrant intramammary lymph node. Further ultrasonographic evaluation recommended, as described above. ASSESSMENT CATEGORY BIRADS Category 0: Incomplete. Need additional imaging evaluation. A letter regarding these results will be sent to the patient by the facility within 30 days. Approximately 10% of breast cancers are not detected by mammography. A normal mammogram should not delay biopsy of a clinically suspicious abnormality. Electronically Signed: Ildefonso Sher MD at 14:39 EDT , Service support ,
--- NOTE | 2018-12-31 09:58 | US_ITS ---
STUDY: ULTRASOUND BREAST - RIGHT REASON FOR EXAM: Male, 78 years old. Bilateral retroareolar pain. TECHNIQUE: Axial and longitudinal images of the RIGHT breast were performed with a high resolution ultrasound transducer. COMPARISON: None. FINDINGS: The right retroareolar region was sonographically evaluated utilizing various imaging planes. There is no sonographically evident discrete nodule, mass or cyst. There is no focal fluid collection. IMPRESSION: No sonographically evident pathology. ASSESSMENT CATEGORY: BIRADS Category 1: Negative. A letter regarding these results will be sent to the patient by the facility within 30 days. Electronically Signed: Ildefonso Sher MD at 14:20 EDT , Service support , STUDY: ULTRASOUND BREAST - LEFT REASON FOR EXAM: Male, 78 years old. Bilateral retroareolar pain. TECHNIQUE: Axial and longitudinal images of the LEFT breast were performed with a high resolution ultrasound transducer. COMPARISON: None. FINDINGS: LEFT Breast: The left breast was sonographically evaluated in the upper outer quadrant utilizing various imaging planes. At the 2:00 position, 3 cm from the nipple, there is a 0.5 x 0.6 x 0.5 cm hypoechoic reniform focus with an echogenic/fatty vascularized hilum. US/Breast Limited Unilateral IMPRESSION: Finding most compatible with an intramammary lymph node in the left upper outer quadrant. ASSESSMENT CATEGORY: BIRADS Category 2: Benign. A letter regarding these results will be sent to the patient by the facility within 30 days. Comment: This benign report should not dissuade further evaluation (to include biopsy) of any clinically suspicious palpable finding. Electronically Signed: Ildefonso Sher MD at 14:25 EDT , Service support ,
== END ==
PROVIDERS: Family Provider Family Medicine; PCP Family Medicine; Referring Provider Family Medicine; Visit Provider Family Medicine
DX: N64.4 Mastodynia (principal)
CPT/HCPCS: 76642; 77062; 77066; G0279

== ENCOUNTER → 2020-09-27 11:08 | Outpatient (CLI) | payer MEDICARE, OTHER, SELFPAY ==
[2020-09-23 10:23] VITALS: BMI 33.8
[2020-09-27 13:12] LABS: AST(SGOT) 26 U/L (15-37); Alanine Aminotransfer ALT/SGPT 38 U/L (16-61); Albumin, Serum 3.8 g/dL (3.2-5.0); Alkaline Phosphatase 73 U/L (45-117); Anion Gap 7 (5-15); BUN 30 mg/dL (7-18); BUN/Creat Ratio 19.6 RATIO (10-20); Bilirubin, Direct 0.22 mg/dL (0.00-0.30); Calcium,Total 9.7 mg/dL (8.5-10.1); Chloride 107 mmol/L (98-107); Cholesterol 102 mg/dL (200); Creatinine, Serum 1.53 mg/dL (0.70-1.30); EST Glomerular Filtration Rate 47 mL/min (>60); Est Glom Filt Rate - Afr Amer 57 mL/min (>60); Globulin 3.8 g/dL (2.2-4.2); Glucose 94 mg/dL (74-106); High Density Lipoprotein 40 mg/dL; Magnesium 1.6 mg/dL (1.6-2.6); Potassium 4.1 mmol/L (3.5-5.1); Protein, Total 7.6 g/dL (6.4-8.2); Sodium Level 138 mmol/L (136-145); Thyroid Stim Hormone (TSH) 1.77 uIU/mL (0.358-3.74); Triglycerides 91 mg/dL; Very Low Density Lipoprotein 18 mg/dL (5-40)
== END ==
PROVIDERS: PCP Family Medicine; Visit Provider Internal Medicine Cardiovascular Disease
DX: I48.19 Other persistent atrial fibrillation (principal); E78.00 Pure hypercholesterolemia, unspecified; Z95.1 Presence of aortocoronary bypass graft
CPT/HCPCS: 36415; 80048; 80061; 80076; 83735; 84443

== ENCOUNTER 2021-11-27 09:46 | Outpatient (CLI) | payer MEDICARE, OTHER, SELFPAY ==
[2021-11-27 12:37] LABS: AST(SGOT) 24 U/L (15-37); Alanine Aminotransfer ALT/SGPT 32 U/L (16-61); Albumin, Serum 3.7 g/dL (3.2-5.0); Alkaline Phosphatase 74 U/L (45-117); Bilirubin, Direct 0.23 mg/dL (0.00-0.30); Cholesterol 108 mg/dL (200); Globulin 3.9 g/dL (2.2-4.2); High Density Lipoprotein 38 mg/dL; Protein, Total 7.6 g/dL (6.4-8.2); Triglycerides 80 mg/dL; Very Low Density Lipoprotein 16 mg/dL (5-40)
== END 2021-11-27 23:59 | disposition home or self-care (01) ==
LOC: MTLAB 09:48
PROVIDERS: PCP Family Medicine; Referring Provider Internal Medicine Cardiovascular Disease; Visit Provider Internal Medicine Cardiovascular Disease
DX: E78.00 Pure hypercholesterolemia, unspecified (principal)
CPT/HCPCS: 36415; 80061; 80076

== ENCOUNTER → 2022-07-19 | Outpatient (CLI) | payer MEDICARE, OTHER, SELFPAY ==
[2022-07-19 13:08] LABS: AST(SGOT) 19 U/L (15-37); Alanine Aminotransfer ALT/SGPT 29 U/L (16-61); Albumin, Serum 3.6 g/dL (3.2-5.0); Alkaline Phosphatase 72 U/L (45-117); Anion Gap 9 (5-15); BUN 33 mg/dL (7-18); BUN/Creat Ratio 19.9 RATIO (10-20); Bilirubin, Direct 0.24 mg/dL (0.00-0.30); Calcium,Total 8.9 mg/dL (8.5-10.1); Chloride 109 mmol/L (98-107); Cholesterol 105 mg/dL (200); Creatinine, Serum 1.66 mg/dL (0.70-1.30); EST Glomerular Filtration Rate 42 mL/min (>60); Est Glom Filt Rate - Afr Amer 51 mL/min (>60); Globulin 3.9 g/dL (2.2-4.2); Glucose 96 mg/dL (74-106); High Density Lipoprotein 37 mg/dL; Potassium 4.9 mmol/L (3.5-5.1); Protein, Total 7.5 g/dL (6.4-8.2); Sodium Level 143 mmol/L (136-145); Triglycerides 101 mg/dL; Very Low Density Lipoprotein 20 mg/dL (5-40)
== END | disposition home or self-care (01) ==
LOC: LAB 11:41
PROVIDERS: PCP Family Medicine; Visit Provider Internal Medicine Cardiovascular Disease
DX: E78.00 Pure hypercholesterolemia, unspecified (principal); Z95.1 Presence of aortocoronary bypass graft
CPT/HCPCS: 36415; 80048; 80061; 80076

== ENCOUNTER → 2023-11-21 | Outpatient (CLI) | payer MEDICARE, SELFPAY ==
--- NOTE | 2023-11-21 06:40 | ECHOCS_ITS ---
Reason For Study: PREPROCEDURAL Procedure This was a 2D Doppler, Color Flow transthoracic echocardiogram. The study was technically difficult. Contrast injection was performed. Exam performed in department. Left Ventricle Normal LV size. Left ventricular systolic function is normal. The left ventricular ejection fraction is 60 %. Stage 3 diastolic dysfunction. No regional wall motion abnormalities noted. Right Ventricle Normal RV size. Normal systolic function. Atria The left atrium is moderately enlarged. The right atrium is mildly enlarged. Mitral Valve Normal mitral valve. Tricuspid Valve Normal tricuspid valve. Moderate (2+) tricuspid valve insufficiency. Pulmonary artery systolic pressure is 47 mmHg. Aortic Valve The aortic valve is not well visualized. Pulmonic Valve Normal pulmonic valve. Mild (1+) pulmonic valve insufficiency. Great Vessels Normal aortic root. The pulmonary artery is normal size. Inferior vena cava collapse with respiration. Pericardium/Pleural No pericardial effusion. Medication Diluted definity 2ml given slow IV push to enhance endocardial definition. MMode/2D Measurements & Calculations LVIDd: 4.6 cm IVSd: 0.99 cm LVOT diam: 2.1 cm LVIDs: 3.6 cm LVPWd: 1.5 cm FS: 21.0 % LVOT area: 3.4 cm2 Ao root diam: 3.6 cm LAV(MOD-bp): 118.7 ml LVAd ap4: 34.1 cm2 LAV(MOD-bp) Indexed: 54.1 ml/m2 LVLd ap4: 8.4 cm LAV(MOD-sp2): 104.7 ml EDV(MOD-sp4): 112.0 ml LAV(MOD-sp4): 122.0 ml EDV(sp4-el): 117.3 ml LVAs ap4: 21.3 cm2 LVLs ap4: 7.6 cm ESV(MOD-sp4): 49.1 ml ESV(sp4-el): 50.3 ml EF(MOD-sp4): 56.2 % EF(sp4-el): 57.1 % SV(MOD-sp4): 62.9 ml SV(sp4-el): 67.0 ml LA A4 area: 32.7 cm2 LA dimension(2D): 4.9 cm RA A4 area: 24.4 cm2 TAPSE: 2.3 cm Time Measurements MV dec time: 0.13 sec Doppler Measurements & Calculations MV E max bisi: 98.3 cm/sec MV V2 max: 92.1 cm/sec MV dec slope: 779.8 cm/sec2 MV A max bisi: 40.2 cm/sec MV max P.4 mmHg MV E/A: 2.4 MV V2 mean: 47.3 cm/sec MV mean P.1 mmHg MV V2 VTI: 18.2 cm MVA(VTI): 4.8 cm2 Ao V2 max: 176.7 cm/sec LV V1 max: 115.9 cm/sec SV(LVOT): 86.8 ml Ao max P.5 mmHg LV V1 max P.4 mmHg Ao V2 mean: 118.1 cm/sec LV V1 mean P.0 mmHg Ao mean P.5 mmHg LV V1 mean: 80.1 cm/sec Ao V2 VTI: 38.2 cm LV V1 VTI: 25.6 cm AV (velocity ratio): 0.67 TOM(I,D): 2.3 cm2 TOM(V,D): 2.2 cm2 PA V2 max: 109.9 cm/sec TR max bisi: 332.6 cm/sec PA V2 mean: 72.9 cm/sec TR max P.3 mmHg ECHO/Echo Complete W/ Contrast Interpretation Summary Normal LV size. Left ventricular systolic function is normal. No regional wall motion abnormalities noted. The left ventricular ejection fraction is 60 %. The left atrium is moderately enlarged. Stage 3 diastolic dysfunction. Contrast injection was performed. Ordering Physician: Prudence Sun Referring Physician: Prudence Sun Performed By: Princess Bruce RCS
--- OUTSIDE RECORDS SUMMARY | 2023-11-21 06:43 | XMS RPT_ITS | CCD ---
Author Name Unknown Address [address] [place] [address] Organization [facility] Care Team Providers Care Speedboat Driver Name Role Phone Ronaldo Mancini Primary Care Provider [phone] Onel Marx Primary Care Provider UnavailGLORIA Vang Attending Unavailable RONALDO MANCINI Primary Care Unavailable RODNEY WEBSTER Admitting Unavailab RODNEY Merchant Attending Unavailab GLORIA Rogers Referring Unavailable RONALDO MANCINI Primary Care Unavailable Ronaldo Mancini MD Primary Care Provider RONALDO MANCINI Primary Care Unavailable ABIODUN EPPS Attending Unavailable RONALDO MANCINI Primary Care Unavailable ABIODUN EPPS Attending Unavailable RONALDO MANCINI Primary Care Unavailable ABIODUN EPPS Attending Unavailable RONALDO MANCINI Primary Care Unavailable MARCI MCDUFFIE Attending Unavailable LIVE RONALDO Primary Care Unavailable ABIODUN EPPS Attending Unavailable RONALDO MANCINI Primary Care Unavailable ABIODUN EPPS Attending Unavailable Ronaldo Mancini MD Primary Care Provider [phone] RONALDO MANCINI Primary Care Unavailable SANDER POWERS Attending Unavailable RONALDO MANCINI Primary Care Unavailable Medications Current Medications Medication Drug Class(es) Dates Sig (Normalized) Sig (Original) cephalexin 500 mg oral capsule (1 source) Cephalosporin Antibacterial Start: 06-29-2021 End: 07-06-2021 take 1 capsule by mouth four times daily cephALEXin (KEFLEX) 500 MG capsule Take 1 capsule by mouth 4 times daily for 7 days 28 capsule 0 06/29/2021 07/06/2021 Active diclofenac sodium 0.01 mg/mg topical gel (3 sources) Nonsteroidal Anti-inflammatory Drug Start: 06-14-2021 diclofenac sodium (VOLTAREN) 1 % GEL Apply 4 g topically 4 times daily 2 g 0 06/14/2021 Active lidocaine hydrochloride 0.02 mg/mg topical gel (13 sources) Antiarrhythmic, Amide Local Anesthetic Start: 04-09-2023 lidocaine (Xylocaine) 2 % gel Completed/Discontinued Medications Medication Drug Class(es) Dates Sig (Normalized) Sig (Original) amLODIPine 10 mg oral tablet (8 sources) Dihydropyridine Calcium Channel Carole take 1 tablet by mouth once daily amLODIPine (NORVASC) 10 mg tablet Take 10 mg by mouth once daily. 0 Active Problems Active Problems Problem Classification Problem Date Documented Date Episodic/Chronic Cardiac dysrhythmias (16 sources) Atrial flutter; Translations: [Unspecified atrial flutter] Onset: 1 06-20-2021 Chronic Chronic ulcer of skin (15 sources) Skin ulcer of calf ; Translations: [Non-pressure chronic ulcer of left calf with fat layer exposed] Onset: 3 04-09-2023 Chronic Coagulation and hemorrhagic disorders (16 sources) Hypercoagulability state; Translations: [Other primary thrombophilia] Onset: 1 06-20-2021 Chronic Coronary atherosclerosis and other heart disease (16 sources) Coronary atherosclerosis; Translations: [Atherosclerotic heart disease of enterprise coronary artery without angina pectoris] Onset: 4 06-20-2021 Chronic Diseases of white blood cells (20 sources) Band neutrophil count above reference range; Translations: [Bandemia] Onset: 1 06-20-2021 Chronic Disorders of lipid metabolism (16 sources) Hyperlipidemia; Translations: [Hyperlipidemia, unspecified] Onset: 06-20-2021 Chronic Disorders of teeth and jaw (16 sources) Edentulous; Translations: [Complete loss of teeth, unspecified cause, unspecified class] Onset: 1 06-20-2021 Chronic Essential hypertension (16 sources) Essential hypertension; Translations: [Essential (primary) hypertension] Onset: 06-20-2021 Chronic Hyperplasia of prostate (16 sources) Lower urinary tract symptoms due to benign prostatic hypertrophy; Translations: [Benign prostatic hyperplasia with lower urinary tract symptoms] Onset: 1 06-20-2021 Chronic Open wounds of extremities (20 sources) Open wound of left lower leg; Translations: [Unspecified open wound, left lower leg, initial encounter] Onset: 3 04-09-2023 Episodic Other aftercare (1 source) Wound ; Translations: [Encounter for other specified aftercare] 04-05-2023 Episodic Other connective tissue disease (13 sources) Pain of left lower leg; Translations: [Pain in left lower leg] Onset: 3 04-09-2023 Episodic Other connective tissue disease (1 source) Pain in left lower leg; Translations: [Pain in left lower leg] Onset: 3 Episodic Other diseases of veins and lymphatics (13 sources) Peripheral venous insufficiency; Translations: [Venous insufficiency (chronic) (peripheral)] Onset: 3 04-09-2023 Episodic Other diseases of veins and lymphatics (1 source) Venous insufficiency (chronic) (peripheral); Translations: [Venous insufficiency (chronic) (peripheral)] Onset: 3 Episodic Other ear and sense organ disorders (16 sources) Bilateral hearing loss; Translations: [Unspecified hearing loss, bilateral] Onset: 1 06-20-2021 Chronic Other injuries and conditions due to external causes (1 source) Injury of left hand; Translations: [Unspecified injury of left wrist, hand and finger(s), initial encounter] Episodic Other injuries and conditions due to external causes (1 source) Hematoma; Translations: [Other injury of unspecified body region, initial encounter] 04-05-2023 Episodic Other nervous system disorders (16 sources) Difficulty walking; Translations: [Difficulty in walking, not elsewhere classified] Onset: 1 06-20-2021 Chronic Other nutritional; endocrine; and metabolic disorders (16 sources) Body mass index 30+ - obesity; Translations: [Obesity, unspecified] Onset: 1 06-20-2021 Chronic Other nutritional; endocrine; and metabolic disorders (1 source) Obese class I; Translations: [Obesity, unspecified] Onset: 3 12-23-2022 Chronic Pulmonary heart disease (16 sources) Pulmonary hypertension; Translations: [Pulmonary hypertension, unspecified] Onset: 1 06-20-2021 Chronic Residual codes; unclassified (16 sources) Obstructive sleep apnea syndrome; Translations: [Obstructive sleep apnea (adult) (pediatric)] Onset: 4 06-20-2021 Chronic Residual codes; unclassified (1 source) Altered mental status, unspecified; Translations: [Altered mental status, unspecified altered mental status type] Onset: 3 Episodic Residual codes; unclassified (13 sources) Edema, generalized; Translations: [Generalized edema] Onset: 3 04-09-2023 Episodic Residual codes; unclassified (1 source) Generalized edema; Translations: [Generalized edema] Onset: 3 Episodic Spondylosis; intervertebral disc disorders; other back problems (16 sources) Cervical arthritis; Translations: [Spondylosis without myelopathy or radiculopathy, cervical region] Onset: 1 06-20-2021 Chronic Spondylosis; intervertebral disc disorders; other back problems (1 source) Neck pain; Translations: [Cervicalgia] Episodic Superficial injury; contusion (17 sources) Abrasion of left hand, initial encounter; Translations: [Abrasion or friction burn of hand(s) except finger(s) alone, infected] Onset: 3 Episodic Systemic lupus erythematosus and connective tissue disorders (16 sources) Temporal arteritis; Translations: [Other giant cell arteritis] Onset: 1 06-20-2021 Chronic Transient cerebral ischemia (16 sources) Transient cerebral ischemia; Translations: [Transient cerebral ischemic attack, unspecified] Onset: 6 06-20-2021 Chronic Unclassified (12 sources) Impaired Tissue Onset: 3 04-09-2023 Unclassified (12 sources) Education needed related to ulceration/compromised skin integrity. Onset: 3 04-09-2023 Unclassified (12 sources) Patient Stated Goal Onset: 3 04-09-2023 Past or Other Problems Problem Classification Problem Date Documented Date Episodic/Chronic Abdominal hernia (20 sources) Bilateral inguinal hernia; Translations: [Bilateral inguinal hernia, without obstruction or gangrene, not specified as recurrent] Onset: 6 06-20-2021 Episodic Abdominal pain (16 sources) Pain in male pelvis; Translations: [Pelvic and perineal pain] Onset: 1 06-20-2021 Episodic Acquired foot deformities (17 sources) Talipes cavus; Translations: [Congenital pes cavus, unspecified foot] Onset: 8 06-20-2021 Episodic Coagulation and hemorrhagic disorders (16 sources) Senile purpura; Translations: [Other nonthrombocytopenic purpura] Onset: 1 06-20-2021 Episodic Esophageal disorders (18 sources) Esophagitis; Translations: [Esophagitis] Onset: 6 06-20-2021 Episodic Other aftercare (16 sources) Patient encounter status; Translations: [snf (current) use of insulin] Onset: 1 06-20-2021 Episodic Other aftercare (2 sources) Encounter for other specified aftercare; Translations: [Encounter for other specified aftercare] Onset: 3 Episodic Other connective tissue disease (16 sources) Full thickness rotator cuff tear; Translations: [Complete rotator cuff tear or rupture of unspecified shoulder, not specified as traumatic] Onset: 8 06-20-2021 Episodic Other connective tissue disease (16 sources) Impingement syndrome of shoulder region; Translations: [Impingement syndrome of unspecified shoulder] Onset: 8 06-20-2021 Episodic Other connective tissue disease (18 sources) Prepatellar bursitis; Translations: [Other infective bursitis, unspecified knee] Onset: 2 06-20-2021 Episodic Other injuries and conditions due to external causes (2 sources) Other injury of unspecified body region, initial encounter; Translations: [Other injury of unspecified body region, initial encounter] Onset: 3 Episodic Other lower respiratory disease (16 sources) Dyspnea on exertion; Translations: [Dyspnea, unspecified] Onset: 1 06-20-2021 Episodic Residual codes; unclassified (16 sources) History of radiofrequency ablation operation on left atrium for arrhythmia; Translations: [Other specified postprocedural states] Onset: 6 06-20-2021 Episodic Residual codes; unclassified (16 sources) Unspecified problems with limbs and other problems; Translations: [Problem] Onset: 1 06-20-2021 Episodic Residual codes; unclassified (2 sources) Disorientation, unspecified; Translations: [Transient confusion] Onset: 3 Episodic Residual codes; unclassified (1 source) Transient altered mental status; Translations: [Disorientation, unspecified] Onset: 3 12-22-2022 Episodic Results Test Name Value Interpretation Reference Range Facil ity Vital Signs Date Time Vital Sign Value Performing Clinician Facility 11-19-2023 11:09-0400 Diastolic blood pressure 70 mm[Hg] Pacc 1 Work Phone: [facility] 11-19-2023 11:09-0400 Systolic blood pressure 131 mm[Hg] Pacc 1 Work Phone: [facility] 11-19-2023 11:06-0400 Body height 180.3 cm Pacc 1 Work Phone: [facility] 11-19-2023 11:06-0400 Body weight 100.7 kg Pacc 1 Work Phone: [facility] 11-19-2023 11:06-0400 Heart rate 66 /min Pacc 1 Work Phone: [facility] 11-19-2023 11:06-0400 Respiratory rate 18 /min Pacc 1 Work Phone: [facility] 11-19-2023 11:06-0400 SaO2% (BldA) [Mass fraction] 98 % Pacc 1 Work Phone: [facility] 05-28-2023 11:05-0400 Body temperature 97 [degF] Abiodun Epps DPM Work Phone: [facility] 05-28-2023 11:05-0400 Diastolic blood pressure 64 mm[Hg] Abiodun Epps DPM Work Phone: [facility] 05-28-2023 11:05-0400 Heart rate 80 /min Abiodun Epps DPM Work Phone: [facility] 05-28-2023 11:05-0400 Respiratory rate 18 /min Abiodun Epps DPM Work Phone: [facility] 05-28-2023 11:05-0400 Systolic blood pressure 124 mm[Hg] Abiodun Mich DPM Work Phone: [facility] 05-14-2023 10:51-0400 Body temperature 97.3 [degF] Abiodun Mich DPM Work Phone: [facility] 05-14-2023 10:51-0400 Diastolic blood pressure 95 mm[Hg] Abiodun Epps DPM Work Phone: [facility] 05-14-2023 10:51-0400 Heart rate 97 /min Abiodun Mich DPM Work Phone: [facility] 05-14-2023 10:51-0400 Respiratory rate 21 /min Abiodun Mich DPM Work Phone: [facility] 05-14-2023 10:51-0400 Systolic blood pressure 133 mm[Hg] Abiodunalex Epps DPM Work Phone: [facility] 04-30-2023 10:55-0400 Body temperature 97.9 [degF] Abiodun Mich DPM Work Phone: [facility] 04-30-2023 10:55-0400 Diastolic blood pressure 66 mm[Hg] Abiodun Mich DPM Work Phone: [facility] 04-30-2023 10:55-0400 Heart rate 73 /min Abiodun Epps DPM Work Phone: [facility] 04-30-2023 10:55-0400 Respiratory rate 18 /min Abiodun Mich DPM Work Phone: [facility] 04-30-2023 10:55-0400 Systolic blood pressure 123 mm[Hg] Abiodun Mich DPM Work Phone: [facility] 04-16-2023 08:52-0400 Body temperature 97.59 [degF] Abiodun Epps DPM Work Phone: [facility] 04-16-2023 08:52-0400 Diastolic blood pressure 54 mm[Hg] Abiodunalex Epps DPM Work Phone: [facility] 04-16-2023 08:52-0400 Heart rate 74 /min Abiodun Mich DPM Work Phone: [facility] 04-16-2023 08:52-0400 Respiratory rate 20 /min Abiodunalex Epps DPM Work Phone: [facility] 04-16-2023 08:52-0400 Systolic blood pressure 126 mm[Hg] Abiodunalex Epps DPM Work Phone: [facility] 04-09-2023 10:15-0400 Body height 180.3 cm Abiodunalex Epps DPM Work Phone: [facility] 04-09-2023 10:15-0400 Body mass index (BMI) [Ratio] 32.08 kg/m2 Abiodunalex Epps DPM Work Phone: [facility] 04-09-2023 10:15-0400 Body temperature 97 [degF] Abiodun Mich DPM Work Phone: [facility] 04-09-2023 10:15-0400 Body weight 104.33 kg Abiodun Mich DPM Work Phone: [facility] 04-09-2023 10:15-0400 Diastolic blood pressure 56 mm[Hg] Abiodunalex Epps DPM Work Phone: [facility] 04-09-2023 10:15-0400 Heart rate 55 /min Abiodunalex Epps DPM Work Phone: [facility] 04-09-2023 10:15-0400 Respiratory rate 20 /min Abiodunalex Epps DPM Work Phone: [facility] 04-09-2023 10:15-0400 Systolic blood pressure 112 mm[Hg] Abiodun Epps DPM Work Phone: [facility] 04-05-2023 20:27-0400 Diastolic blood pressure 67 mm[Hg] Marci Mcduffie MD Work Phone: [facility] 04-05-2023 20:27-0400 Heart rate 74 /min Marci Mcduffie MD Work Phone: [facility] 04-05-2023 20:27-0400 Respiratory rate 16 /min Marci Mcduffie MD Work Phone: [facility] 04-05-2023 20:27-0400 SaO2% (BldA) [Mass fraction] 98 % Marci Mcduffie MD Work Phone: [facility] 04-05-2023 20:27-0400 Systolic blood pressure 140 mm[Hg] Marci Mcduffie MD Work Phone: [facility] 04-05-2023 14:44-0400 Body temperature 97.59 [degF] Marci Mcduffie MD Work Phone: [facility] 06-29-2021 22:50-0400 Diastolic blood pressure 64 mm[Hg] Blake Reyes MD Work Phone: [facility] Work Phone: 06-29-2021 22:50-0400 Heart rate 64 /min Blake Reyes MD Work Phone: [facility] Work Phone: 06-29-2021 22:50-0400 Respiratory rate 18 /min Blake Reyes MD Work Phone: [employer] Work Phone: 06-29-2021 22:50-0400 SaO2% (BldA) [Mass fraction] 97 % Blake Reyes MD Work Phone: [employer] Work Phone: 06-29-2021 22:50-0400 Systolic blood pressure 118 mm[Hg] Blake Reyes MD Work Phone: [facility] Work Phone: 06-29-2021 19:54-0400 Body height 177.8 cm Blake Reyes MD Work Phone: [employer] Work Phone: 06-29-2021 19:54-0400 Body mass index (BMI) [Ratio] 32.28 kg/m2 Blake Reyes MD Work Phone: [facility] Work Phone: 06-29-2021 19:54-0400 Body temperature 98.01 [degF] Blake Reyes MD Work Phone: [facility] Work Phone: 06-29-2021 19:54-0400 Body weight 102.06 kg Blake Reyes MD Work Phone: [facility] Work Phone: Encounters Encounter Date Encounter Type Care Provider Facility Start: 11-19-2023 Encounter for other preprocedural examination [facility] Start: 11-19-2023 End: 11-19-2023 Admission to [place] [id number] Work Phone: [facility] Start: 11-19-2023 End: 11-19-2023 ambulatory RONALDO MANCINI Pre Anesthesia Procedures Date Procedure Procedure Detail Performing Clinician Start: 11-19-2023 Iadna s aureus amplified probe tq John Zhu DO Work Phone: Start: 11-19-2023 Thromboplastin time partial plasma/whole blood John Zhu DO Work Phone: Start: 04-09-2023 Adult depression screening assessment Abiodun Epps DPM Work Phone: Start: 04-05-2023 Comprehensive metabolic panel Hallie MOSES Work Phone: Start: 04-05-2023 Radiologic examination tibia & fibula 2 views Hallie MOSES Work Phone: Start: 06-29-2021 Radex hand minimum 3 views Maggie Huynh Work Phone: Start: 06-29-2021 ADD ON LAB TEST Blake Reyes MD Work Phone: Start: 06-29-2021 Basic metabolic panel calcium total Blake Reyes MD Work Phone: Start: 06-29-2021 C-reactive protein Blake Reyes MD Work Phone: Start: 06-28-2021 Radex hand minimum 3 views Blake Matthew MD Work Phone: Start: 06-20-2021 History of coronary artery bypass grafting S/P CABG (coronary artery bypass graft) Blake Matthew MD Work Phone: Start: 01-11-2021 Non-invas physiologic std extremity art 2 level Ronaldo Mancini MD Work Phone: Start: 01-11-2021 Radex spine cervical 4 or 5 views Blake Matthew MD Work Phone: Start: 11-02-2020 Radex spine cervical 4 or 5 views Blake Matthew Work Phone: Start: 05-04-2016 Lipid 1996 panel - Serum or Plasma Marci Mcduffie MD Work Phone: Plan of Treatment Date Care Activity Detail Author Start: 03-29-2033 DTaP/Tdap/Td Vaccine s (3 - Td or Tdap) DTaP/Tdap/Td Vaccines (3 - Td or Tdap) [facility] Start: 03-11-2031 DTaP/Tdap/Td vaccine (2 - Td or Tdap) DTaP/Tdap/Td vaccine (2 - Td or Tdap) [facility] Start: 03-11-2031 Urine microalbumin profile DTaP,Tdap,Td Vaccine (2 - Td or Tdap) [facility] Start: 11-18-2026 Diabetes Screening Diabetes Screenin g [facility] Start: 04-09-2024 Depression Screening Depression Scre ening [facility] Start: 11-19-2023 End: 02-18-2024 Hemoglobin A1c in Blood [facility] Work Phone: Immunizations Immunization Date Immunization Notes Care Provider Fa cility 06-06-2022 influenza virus vacc ine, unspecified formulation Marci Mcduffie MD Work Phone: [facility] Payers Date Payer Category Payer Medicare [id number] 2020 Medicare MEDICARE MEDICAR E PART A AND B [id number] 2020-Present [phone] [place] [address] [id number] 2020 Private Health Insurance [id number] 2015 Medicare MEDICARE MEDICAR E A AND B [id number] 2015-Present [phone] [place] [address] Medicare [id number] 2015 Private Health Insurance HUMANA HUMANA MEDICARE SUPPLEMENT [id number] 2015-Present [phone] [address] [address] [place] [address] Indemnity [id number] Social History Date Type Detail Facility Start: 11-02-2020 End: 11-15-2023 Tobacco smoking status IDIS Former smoker [facility] Work Phone: Start: 11-02-2020 End: 11-15-2023 Tobacco use and exposure Never used [facility] Work Phone: Start: 11-02-2020 End: 11-15-2023 Alcohol intake Current drinker of alcohol (finding) [facility] Work Phone: Start: 06-25-2017 Alcohol Comment occassionally [facility] Work Phone: Start: 1940 Sex Assigned At Not on file [facility] [email or web address] Work Phone: Start: 03-26-2023 End: 05-28-2023 Exposure to SARS-CoV-2 (event) Not sure [facility] Work Phone: End: 03-09-2002 History of tobacco use Current smoker [facility] End: 03-09-2002 History of tobacco use Cigarette Smoker [facility] Start: 06-23-2012 End: 11-19-2023 Cigarettes smoked current (pack per day) - Reported [facility] Start: 04-09-2023 End: 11-19-2023 Gender identity Not on file [facility] How often to you hav e a drink containing alcohol? 2-3 time sa week [facility] How many standard drinks containing alcohol do you have on a typical day? 1 or 2 [facility] How often do you hav e 6 or more drinks on 1 occasion? Never [facility] How hard is it for y ou to pay for the very basics like food, housing, medical care, and heating Not hard at all [facility] (I/We) worried wheth er (my/our) food would run out before (I/we) got money to buy more. Never true [facility] In the past 12 month s, was there a time when you were not able to pay the mortgage or rent on time? No [facility] History of tobacco use Passive smoker [facility] Start: 11-15-2023 Alcohol Comment SOCIAL [facility] Goals Date Patient Goal Desired Activity /State Personal health goal Clinical Notes 06-26-2021 to 11-19-2023 Eulogio Sanabria APRN.LIZ - 11/19/2023 11:47 AM Eulogio Wagner APRN.CNP - 11/19/2023 11:20 AM Eulogio Wagner APRN.CNP - 11/19/2023 11:00 AM EDTPatient InstructionsPatient InstructionsInstructions Note Date & Type Note Facility 11-19-2023 Note HNO ID: [id number] Author: EULOGIO SANABRIA APRN.LIZ Service: ? Author Type: Nurse Practitioner Type: Progress Notes Filed: 11/19/2023 12:42 Note Text: PACC Consult SERVICE DATE: 11/19/2023 SERVICE TIME: 11:47 AM PRIMARY CARE PHYSICIAN: Ronaldo Mancini MD REASON FOR VISIT: Marci Ferrari is a 82 year old male who is scheduled for R reverse TSA at the request of Dr. Zhu for PACC consult The patient has the following: ACTIVE PROBLEM LIST Esophagitis, Unspecified Diaphragmatic Hernia Without Mention of Obstruction Or Gangrene Incisional Hernia Without Mention of Obstruction Or Gangrene Septic Prepatellar Bursitis Transient Confusion Obesity, Class I, Bmi 30-34.9 Subjective CHIEF COMPLAINT: shoulder pain 82yo obese male, exsmoker. PMH: +DANIAL noncompliant, HTN, HLD, AF s/p ablation/DCCV (Xarelto,metoprolol), CAD s/p CABG 2003 (BUTTS LAD, SVG to OM/PDA), PAH, PVD, TIA 11/2022, temporal arteritis, CKD3b, dementia, BPH, GERD. Cardiology did order a stress and ECHO that are scheduled for 11/20 for clearance (however clearance was received below?) PAST MEDICAL HISTORY Diagnosis Date Arrhythmia AFIB DR DOWNEY, Arthritis Atrial fibrillation (HCC) Benign hypertensive heart disease without heart failure BPH (benign prostatic hyperplasia) DR MANCINI FOLLOWS Coronary artery disease CABG X3 2003 [facility], DR DOWNEY,C Diaphragmatic hernia without mention of obstruction or gangrene Diverticulosis of colon (without mention of hemorrhage) Esophagitis, unspecified DR MANCINI, H/O cardiac radiofrequency ablation FAILED ABLATION X2 FOR AFIB Hypertension DR MANCINI Kidney stone REMOTE Other and unspecified hyperlipidemia DR MANCINI Poor historian Sleep apnea NON COMPLIANT ??? Snoring stress test DUE FOR STRESS AND ECHO AT [facility] ON 11/21/[address] DOWNEY, PAST SURGICAL HISTORY Procedure Laterality Date COLONOSCOPY FLX DX W/COLLJ SPEC WHEN PFRMD 12/26/2006 ESOPHAGOGASTRODUODENOSCOPY TRANSORAL DIAGNOSTIC 01/21/2006 EGD ESOPHAGOGASTRODUODENOSCOPY TRANSORAL DIAGNOSTIC 06/22/2010 EGD ESOPHAGOGASTRODUODENOSCOPY TRANSORAL DIAGNOSTIC 01/23/2016 EGD HEART SURGERY HX CABG X3 2003 IMPLANT MESH OPN HERNIA RPR/DEBRIDEMENT CLOSURE 06/25/2007 LAPAROSCOPY SURG RPR INITIAL INGUINAL HERNIA 06/25/2007 PAST SURGICAL HISTORY OF 09/09/2003 kidney stone FAMILY HISTORY Problem Relation Age of Onset None Other SOCIAL HISTORY: Social History Tobacco Use Smoking status: Former Packs/day: 1.00 Years: 40.00 Additional pack years: 0.00 Total pack years: 40.00 Types: Cigarettes Quit date: 03/09/2002 Years since quittin.7 Passive exposure: Past Smokeless tobacco: Never Vaping Use Vaping Use: Never used Substance Use Topics Alcohol use: Yes Comment: SOCIAL Drug use: Never MEDICATIONS: Prior to Admission medications as of 11/15/23 6123 Medication Sig Last Dose Taking tamsulosin (FLOMAX) 0.4 mg Take 0.4 mg by mouth daily at bedtime. Yes CPAP NON COMPLIANT Yes rivaroxaban (XARELTO) 15 mg tablet Take 1 tablet by mouth once daily. Patient taking differently: Take 15 mg by mouth daily at bedtime. HOLD 3 DAYS PRE OP PER Félix LIAO Yes spironolactone (ALDACTONE) 50 mg tablet Take 0.5 tablets by mouth once daily. Patient taking differently: Take 25 mg by mouth every morning. Yes pantoprazole DR (PROTONIX) 40 mg tablet Take 1 tablet by mouth once daily. Patient taking differently: Take 40 mg by mouth every morning. Yes hydroCHLOROthiazide 25 mg tablet Take 1 tablet by mouth once daily. Patient taking differently: Take 25 mg by mouth every morning. Yes multivitamin with minerals (ONE-A-DAY 50 PLUS ORAL) Take 1 tablet by mouth daily at bedtime. Yes metoprolol succinate ER (TOPROL XL) 25 mg 24 hr tablet Take 25 mg by mouth every morning. Yes ramipril (ALTACE) 10 mg capsule Take 10 mg by mouth twice daily. Yes atorvastatin (LIPITOR) 10 mg tablet Take 20 mg by mouth daily at bedtime. Yes No medication comments found. CURRENT ALLERGIES: ALLERGIES No Known Allergies REVIEW OF SYSTEMS: PAIN ASSESSMENT: Pain Pain Level: 3 Pain Location: Shoulder-Right Description: Dull Duration Units: Months Frequency: Intermittent Intervention/Comfort measure: Reposition, Emotional Support/Reassurance General: No weight loss, malaise or fevers. Neuro: Postive for ?TIA 12/2022 Respiratory: Positive for Tobacco Use exsmoker, DANIAL noncompliant Cardiovascular: Positive for: Afib/Aflutter, Anticoagulation therapy, CAD; Bench Examiner: CALLY Downey, Hypertension, Open heart 2004, PVD; no intervention GI: Positive for GERD : Positive for BPH Endocrine: No history of diabetes. Has not taken steroids within the past 30 days. No history of endocrinological symptoms or problems. Hematology: Chronic anti-coagulation / platelet meds (DOAC) Oncology: No history of CA metastasis, chemo within 30 days, or radiotherapy within 90 days. Has not l (more content not included)... [facility] 11-19-2023 Note HNO ID: [id number] Author: EULOGIO SANABRIA APRN.CNP Service: ? Author Type: Nurse Practitioner Type: Progress Notes Filed: 11/19/2023 12:42 Note Text: Summary: dos meds PATIENT MEDICATION INSTRUCTIONS Please read below carefully for your personalized instructions. Medications: If you are on blood thinner or anticoagulants including aspirin, please confirm with your surgical team on when to stop these medications. Unless instructed differently by your surgical team, stay on all of your medications until your surgery. Pre-Surgery Med Instructions Medication Instructions tamsulosin (FLOMAX) 0.4 mg DO NOT TAKE MORNING OF SURGERY CPAP rivaroxaban (XARELTO) 15 mg tablet Follow Bench Examiner's instructions spironolactone (ALDACTONE) 50 mg tablet DO NOT TAKE MORNING OF SURGERY pantoprazole DR (PROTONIX) 40 mg tablet Take morning of surgery with a sip of water, no other fluids hydroCHLOROthiazide 25 mg tablet DO NOT TAKE MORNING OF SURGERY multivitamin with minerals (ONE-A-DAY 50 PLUS ORAL) DO NOT TAKE MORNING OF SURGERY metoprolol succinate ER (TOPROL XL) 25 mg 24 hr tablet Take morning of surgery with a sip of water, no other fluids ramipril (ALTACE) 10 mg capsule DO NOT TAKE MORNING OF SURGERY atorvastatin (LIPITOR) 10 mg tablet DO NOT TAKE MORNING OF SURGERY If you take any medications for erectile dysfunction-Cialis (Tadalafil), Levitra, Staxyn (Vardenafil) Viagra (Sildenenafil please do not take these for 48 hours before surgery. If you have any medication changes between receiving these instructions and your surgery date, please provide this updated information with the nurse who calls you the week day prior to your surgical procedure so we can update your list and provide you with updated instructions for the morning of your procedure. [facility] 11-19-2023 Note HNO ID: [id number] Author: EULOGIO ASNABRIA APRN.CONSULTING PRACTICE MANAGER Service: ? Author Type: Nurse Practitioner Type: Progress Notes Filed: 11/19/2023 12:42 Note Text: Summary: preanesthesia review Reverse R TSA 12/09 [facility] 82yo obese male, exsmoker. PMH: +DANIAL noncompliant, HTN, HLD, AF s/p ablation/DCCV (Xarelto,metoprolol), CAD s/p CABG 2003 (BUTTS LAD, SVG to OM/PDA), PAH, PVD, TIA 11/2022, temporal arteritis, CKD3b, dementia, BPH, GERD. Cardiology did order a stress and ECHO that are scheduled for 11/20 for clearance (however clearance was received below?) Per cardiology notes 01/2023, last cath in 2015 showed patent SVG to OM and PDA with some distal LAD disease not amenable to angioplasty. Stress test in 2019 was neg ischemia at mod workload- RVSP est 35-40mmHg.Was in [facility] 12/2022 for transient global ischemia- however MRI and CT were negative for CVA. ECHO 12/2022: - Exam indication: Stroke - There is a resting wall motion abnormality in the territory of the RCA. - The left ventricle is normal in size. Left ventricular systolic function is normal. EF = 57 ? 5% (2D biplane) Definity contrast used for endocardial border detection. Left ventricular diastolic function was not evaluated due to AF. Difficult to assess LV size and function due to beat to beat variability. - The RV appears grossly normal in limited views. - The left atrial cavity is severely dilated. - The RA appears grossly normal in limited views. EKG 12/2022: 80bpm, AF with PV or aberrantly conducted complexes, LAD, NS ST segment changes in lat leads Cardiac clearance received from PA at Nasreen's office- cleared at low risk. Approved 3 day hold of eliquis- however patient on Xarelto- Xarelto is listed in the OV notes from 01/2023 [facility] 11-19-2023 History of Present illness Narrative Formatting of this note is different fro m the original. PACC Consult SERVICE DATE: 11/19/2023 SERVICE TIME: 11:47 AM PRIMARY CARE PHYSICIAN: Ronaldo Mancini MD REASON FOR VISIT: Marci Ferrari is a 82 year old male who is scheduled for R reverse TSA at the request of Dr. Zhu for PACC consult The patient has the following: ACTIVE PROBLEM LIST Esophagitis, Unspecified Diaphragmatic Hernia Without Mention of Obstruction Or Gangrene Incisional Hernia Without Mention of Obstruction Or Gangrene Septic Prepatellar Bursitis Transient Confusion Obesity, Class I, Bmi 30-34.9 Subjective CHIEF COMPLAINT: shoulder pain 82yo obese male, exsmoker. PMH: +DANIAL noncompliant, HTN, HLD, AF s/p ablation/DCCV (Xarelto,metoprolol), CAD s/p CABG 2003 (BUTTS LAD, SVG to OM/PDA), PAH, PVD, TIA 11/2022, temporal arteritis, CKD3b, dementia, BPH, GERD. Cardiology did order a stress and ECHO that are scheduled for 11/20 for clearance (however clearance was received below?) PAST MEDICAL HISTORY Diagnosis Date Arrhythmia AFIB DR DOWNEY, Arthritis Atrial fibrillation (HCC) Benign hypertensive heart disease without heart failure BPH (benign prostatic hyperplasia) DR MANCINI FOLLOWS Coronary artery disease CABG X3 2003 [facility], DR NASREEN,C Diaphragmatic hernia without mention of obstruction or gangrene Diverticulosis of colon (without mention of hemorrhage) Esophagitis, unspecified DR MANCINI, H/O cardiac radiofrequency ablation FAILED ABLATION X2 FOR AFIB Hypertension DR AMNCINI Kidney stone REMOTE Other and unspecified hyperlipidemia DR MANCINI Poor historian Sleep apnea NON COMPLIANT ??? Snoring stress test DUE FOR STRESS AND ECHO AT [facility] ON 11/21/[address] DOWNEY, PAST SURGICAL HISTORY Procedure Laterality Date COLONOSCOPY FLX DX W/COLLJ SPEC WHEN PFRMD 12/26/2006 ESOPHAGOGASTRODUODENOSCOPY TRANSORAL DIAGNOSTIC 01/21/2006 EGD ESOPHAGOGASTRODUODENOSCOPY TRANSORAL DIAGNOSTIC 06/22/2010 EGD ESOPHAGOGASTRODUODENOSCOPY TRANSORAL DIAGNOSTIC 01/23/2016 EGD HEART SURGERY HX CABG X3 2003 IMPLANT MESH OPN HERNIA RPR/DEBRIDEMENT CLOSURE 06/25/2007 LAPAROSCOPY SURG RPR INITIAL INGUINAL HERNIA 06/25/2007 PAST SURGICAL HISTORY OF 09/09/2003 kidney stone FAMILY HISTORY Problem Relation Age of Onset None Other SOCIAL HISTORY: Social History Tobacco Use Smoking status: Former Packs/day: 1.00 Years: 40.00 Additional pack years: 0.00 Total pack years: 40.00 Types: Cigarettes Quit date: 03/09/2002 Years since quittin.7 Passive exposure: Past Smokeless tobacco: Never Vaping Use Vaping Use: Never used Substance Use Topics Alcohol use: Yes Comment: SOCIAL Drug use: Never MEDICATIONS: Prior to Admission medications as of 11/15/23 1543 Medication Sig Last Dose Taking tamsulosin (FLOMAX) 0.4 mg Take 0.4 mg by mouth daily at bedtime. Yes CPAP NON COMPLIANT Yes rivaroxaban (XARELTO) 15 mg tablet Take 1 tablet by mouth once daily. Patient taking differently: Take 15 mg by mouth daily at bedtime. HOLD 3 DAYS PRE OP PER Félix LIAO Yes spironolactone (ALDACTONE) 50 mg tablet Take 0.5 tablets by mouth once daily. Patient taking differently: Take 25 mg by mouth every morning. Yes pantoprazole DR (PROTONIX) 40 mg tablet Take 1 tablet by mouth once daily. Patient taking differently: Take 40 mg by mouth every morning. Yes hydroCHLOROthiazide 25 mg tablet Take 1 tablet by mouth once daily. Patient taking differently: Take 25 mg by mouth every morning. Yes multivitamin with minerals (ONE-A-DAY 50 PLUS ORAL) Take 1 tablet by mouth daily at bedtime. Yes metoprolol succinate ER (TOPROL XL) 25 mg 24 hr tablet Take 25 mg by mouth every morning. Yes ramipril (ALTACE) 10 mg capsule Take 10 mg by mouth twice daily. Yes atorvastatin (LIPITOR) 10 mg tablet Take 20 mg by mouth daily at bedtime. Yes No medication comments found. CURRENT ALLERGIES: ALLERGIES No Known Allergies REVIEW OF SYSTEMS: PAIN ASSESSMENT: Pain Pain Level: 3 Pain Location: Shoulder-Right Description: Dull Duration Units: Months Frequency: Intermittent Intervention/Comfort measure: Reposition, Emotional Support/Reassurance General: No weight loss, malaise or fevers. Neuro: Postive for ?TIA 12/2022 Respiratory: Positive for Tobacco Use exsmoker, DANIAL noncompliant Cardiovascular: Positive for: Afib/Aflutter, Anticoagulation therapy, CAD; Bench Examiner: Nasreen , CALLY, Hypertension, Open heart 2004, PVD; no intervention GI: Positive for GERD : Positive for BPH Endocrine: No history of diabetes. Has not taken steroids within the past 30 days. No history of endocrinological symptoms or problems. Hematology: Chronic anti-coagulation / platelet meds (DOAC) Oncology: No history of CA metastasis, chemo within 30 days, or radiotherapy within 90 days. Has not lost 10% of body wt in 6 months. No history of oncological symptoms or problems. Psych: dementia Musculoskeletal: Joint pain Skin: Negative for lesions, rash and itching. Objective PHYSICAL EXAM: VITALS: BP 131/70 Pulse 66 Resp 18 Ht 5' 11 (1.80m) Wt 222 lb (100.7kg) SpO2 98% BMI 30.98 kg/(m^2). General: Alert and oriented, No acute distress, Healthy appearance Skin: Normal color, no rash, no lesions. HEENT: EOM, pupils equal, round and reactive. Cardiovascular: Pulse irregular Lungs: Normal breath sounds, no wheezes or crackles. Extremities: No deformity, no edema or tenderness, no joint swelling or clubbing. Neurological: A&O x3 however seems to use humor to compensate for forgetfulness, appropriate responses Pulses: Not examined Diagnostic tests reviewed for today's visit: Lab Value Units Date High Low HB No results within date range. HCT No results within date range. WBC No results within date range. PLT No results within date range. NA No results within date range. K No results within date range. GLUC No results within date range. BUN No results within date range. CREAT No results within date range. PTSEC No results within date range. INR No results within date range. APTT No results within date range. ALT No results within date range. AST No results within date range. TBILI No results within date range. TSH No results within date range. Lab Value Units Date High Low HCGQT No results within date range. UHCG No results within date range. HCG, BODY* No results within date range. Lab Value Units Date High Low ABORHD No results within date range. ABSCREEN No results within date range. Hemoglobin A1C (%) Date Value 12/23/2022 6.0 PENDING Per cardiology notes 01/2023, last cath in 2015 showed patent SVG to OM and PDA with some distal LAD disease not amenable to angioplasty. Stress test in 2019 was neg ischemia at mod workload- RVSP est 35-40mmHg.Was in [facility] 12/2022 for transient global ischemia- however MRI and CT were negative for CVA. ECHO 12/2022: - Exam indication: Stroke - There is a resting wall motion abnormality in the territory of the RCA. - The left ventricle is normal in size. Left ventricular systolic function is normal. EF = 57 5% (2D biplane) Definity contrast used for endocardial border detection. Left ventricular diastolic function was not evaluated due to AF. Difficult to assess LV size and function due to beat to beat variability. - The RV appears grossly normal in limited views. - The left atrial cavity is severely dilated. - The RA appears grossly normal in limited views. EKG 12/2022: 80bpm, AF with PV or aberrantly conducted complexes, LAD, NS ST segment changes in lat leads Cardiac clearance received from PA at Nasreen's office- cleared at low risk. Approved 3 day hold of eliquis- however patient on Xarelto- Xarelto is listed in the OV notes from 01/2023 Assessment/Plan Marci lives at home with his . Looks fairly good for 82yrs old. Poor historian and compensates with humor and changing the subject. Many times during the conversation he stated that he sometimes forgets to take certain medications (particularly his Xarelto) in the evening. Admits to drinking 1-2 scotches a couple times a week and it was also advised that he not drink while taking Xarelto. There was a discussion regarding why he needs the Xarelto and his stroke risk. He is in AF today. Lungs CTA. He ambulates without assistance. Goes to the 4x week and does free weights and machines. Does not remember if he had anginal equiv s/s. Denies CP/SOB/orthopnea. Discussed plan to stay on track with his medications with his family setting up his medications for him. His daughter and do state he gets confused sometimes, particularly after waking up from a nap or at night. Discussed possibility of postop delirium and need to stay overnight. Denies TIA or CVA last year but his states he had a few severe episodes of where he was very confused. METS: Walk indoors, such as around the house (1.75 METs) Do light work around the house, such as dusting or washing dishes (2.70 METs) Take care of self; that is eating, dressing, bathing, using the toilet (2.75 METs) Walk a block or two on level ground (2.75 METs) Do moderate work around the house such as vacuuming, sweeping floors, or carrying in groceries (3.50 METs) Climb a flight of stairs or walk up a hill (5.50 METs) Participate in moderate recreational activities, such as golf, bowling, dancing, doubles tennis, or throwing a baseball or football (6.00 METs) Patient denies any chest pain or undue shortness of breath with the above physical activity. ANESTHESIA FINDINGS: Intubation History: No history of difficult intubation Significant Anesthesia Considerations: potential for postop delirium Airway History: No abnormal airway history Planned Anesthetic: General Instructions Given to Patient: Instructions located in the after visit summary. Patient given verbal and written preop instructions and voices comprehension and compliance. SIGNATURE: Eulogio Sanabria APRN.CNP PATIENT NAME: Marci Ferrari DATE: November 19, 2023 TIME: 11:47 AM Summary: dos meds PATIENT MEDICATION INSTRUCTIONS Please read below carefully for your personalized instructions. Medications: If you are on blood thinner or anticoagulants including aspirin, please confirm with your surgical team on when to stop these medications. Unless instructed differently by your surgical team, stay on all of your medications until your surgery. Pre-Surgery Med Instructions Medication Instructions tamsulosin (FLOMAX) 0.4 mg DO NOT TAKE MORNING OF SURGERY CPAP rivaroxaban (XARELTO) 15 mg tablet Follow Bench Examiner's instructions spironolactone (ALDACTONE) 50 mg tablet DO NOT TAKE MORNING OF SURGERY pantoprazole DR (PROTONIX) 40 mg tablet Take morning of surgery with a sip of water, no other fluids hydroCHLOROthiazide 25 mg tablet DO NOT TAKE MORNING OF SURGERY multivitamin with minerals (ONE-A-DAY 50 PLUS ORAL) DO NOT TAKE MORNING OF SURGERY metoprolol succinate ER (TOPROL XL) 25 mg 24 hr tablet Take morning of surgery with a sip of water, no other fluids ramipril (ALTACE) 10 mg capsule DO NOT TAKE MORNING OF SURGERY atorvastatin (LIPITOR) 10 mg tablet DO NOT TAKE MORNING OF SURGERY If you take any medications for erectile dysfunction-Cialis (Tadalafil), Levitra, Staxyn (Vardenafil) Viagra (Sildenenafil please do not take these for 48 hours before surgery. If you have any medication changes between receiving these instructions and your surgery date, please provide this updated information with the nurse who calls you the week day prior to your surgical procedure so we can update your list and provide you with updated instructions for the morning of your procedure. Summary: preanesthesia review Reverse R TSA 12/09 [facility] 82yo obese male, exsmoker. PMH: +DANIAL noncompliant, HTN, HLD, AF s/p ablation/DCCV (Xarelto,metoprolol), CAD s/p CABG 2003 (BUTTS LAD, SVG to OM/PDA), PAH, PVD, TIA 11/2022, temporal arteritis, CKD3b, dementia, BPH, GERD. Cardiology did order a stress and ECHO that are scheduled for 11/20 for clearance (however clearance was received below?) Per cardiology notes 01/2023, last cath in 2015 showed patent SVG to OM and PDA with some distal LAD disease not amenable to angioplasty. Stress test in 2019 was neg ischemia at mod workload- RVSP est 35-40mmHg.Was in [facility] 12/2022 for transient global ischemia- however MRI and CT were negative for CVA. ECHO 12/2022: - Exam indication: Stroke - There is a resting wall motion abnormality in the territory of the RCA. - The left ventricle is normal in size. Left ventricular systolic function is normal. EF = 57 5% (2D biplane) Definity contrast used for endocardial border detection. Left ventricular diastolic function was not evaluated due to AF. Difficult to assess LV size and function due to beat to beat variability. - The RV appears grossly normal in limited views. - The left atrial cavity is severely dilated. - The RA appears grossly normal in limited views. EKG 12/2022: 80bpm, AF with PV or aberrantly conducted complexes, LAD, NS ST segment changes in lat leads Cardiac clearance received from PA at Nasreen's office- cleared at low risk. Approved 3 day hold of eliquis- however patient on Xarelto- Xarelto is listed in the OV notes from 01/2023 documented in this encounter [facility] 11-19-2023 Instructions Eulogio Sanabria APRN.LIZ - 11/19/2023 11:21 AM EDT PATIENT MEDICATION INSTRUCTIONS Please read below carefully for your personalized instructions. Medications: If you are on blood thinner or anticoagulants including aspirin, please confirm with your surgical team on when to stop these medications. Unless instructed differently by your surgical team, stay on all of your medications until your surgery. Pre-Surgery Med Instructions Medication Instructions tamsulosin (FLOMAX) 0.4 mg DO NOT TAKE MORNING OF SURGERY CPAP rivaroxaban (XARELTO) 15 mg tablet Follow Bench Examiner's instructions spironolactone (ALDACTONE) 50 mg tablet DO NOT TAKE MORNING OF SURGERY pantoprazole DR (PROTONIX) 40 mg tablet Take morning of surgery with a sip of water, no other fluids hydroCHLOROthiazide 25 mg tablet DO NOT TAKE MORNING OF SURGERY multivitamin with minerals (ONE-A-DAY 50 PLUS ORAL) DO NOT TAKE MORNING OF SURGERY metoprolol succinate ER (TOPROL XL) 25 mg 24 hr tablet Take morning of surgery with a sip of water, no other fluids ramipril (ALTACE) 10 mg capsule DO NOT TAKE MORNING OF SURGERY atorvastatin (LIPITOR) 10 mg tablet DO NOT TAKE MORNING OF SURGERY If you take any medications for erectile dysfunction-Cialis (Tadalafil), Levitra, Staxyn (Vardenafil) Viagra (Sildenenafil please do not take these for 48 hours before surgery. If you have any medication changes between receiving these instructions and your surgery date, please provide this updated information with the nurse who calls you the week day prior to your surgical procedure so we can update your list and provide you with updated instructions for the morning of your procedure. documented in this encounter [facility] 05-28-2023 Note [facility] Progress Note and Procedure Note Marci Ferrari AGE: 82 y.o. GENDER: male : 1940 EPISODE DATE: 05/28/23 Subjective: Patient complains of a skin ulcer. The ulcer is located on the left lower leg(s). Ulcer has been present for a few weeks. Pain is rated as 2/10. Interventions to date: Debridements, off-loading, and compression . Patient denies tobacco use. Patient denies having a history of diabetes. HISTORY of PRESENT ILLNESS HPI History of Wound Context: Venous Stasis Ulcer / Venous Insufficiency: 1.Are compression bandages and/or garments being consistently applied? Yes 2. Is elevation/ambulation being encouraged? Yes Quality of pain: aching, burning, soreness, and tingling Wound/Ulcer Pain Timing/Severity: 2 / 10 Modifying Factors: PVD Associated Signs/Symptoms:wound drainage Interval History: Patient presents today for follow up on wound/ulcer's progression. The patient is currently not on antibiotics. Current dressing care includes collagen, DSD, and compression. 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 Atrial fibrillation (CMS/HCC) (HCC) Atrial flutter (HCC) 06/20/2021 Bandemia 06/20/2021 Bilateral hearing loss 06/20/2021 Bilateral inguinal hernia 03/27/2017 Cervical arthritis 06/20/2021 Diaphragmatic hernia 01/21/2006 Difficulty walking 03/11/2021 Dyspnea on exertion 06/20/2021 Edentulous 06/20/2021 Encounter for long-term (current) use of insulin ([facility] 12/26/2010 Esophagitis 01/21/2006 Essential hypertension 12/26/2010 Full thickness rotator cuff tear 10/18/2017 History of radiofrequency ablation (RFA) for complex left atrial arrhythmia 11/03/2015 Hypercoagulable state ([facility]) 03/11/2021 Hyperlipidemia Hypertension Impingement syndrome of shoulder region 10/18/2017 Incisional hernia 07/03/2007 Leukocytosis 03/11/2021 Lower urinary tract symptoms due to benign prostatic hyperplasia 03/11/2021 Obesity with body mass index 30 or greater 06/20/2021 Obstructive sleep apnea syndrome 09/22/2013 Pelvic pain in male 06/20/2021 Pes cavus 05/15/2018 Pulmonary hypertension ([facility]) 03/11/2021 S/P CABG (coronary artery bypass graft) 06/20/2021 Senile purpura ([facility] ([facility] 03/11/2021 Septic prepatellar bursitis 05/13/2012 Temporal arteritis ([facility] ([facility] 03/11/2021 Transient ischemic attack 11/04/2015 PAST SURGICAL HISTORY Past Surgical History: Procedure Laterality Date ABLATION OF DYSRHYTHMIC FOCUS CARDIAC SURGERY triple bypass FAMILY HISTORY No family history on file. SOCIAL HISTORY Social History Tobacco Use Smoking status: Former Smokeless tobacco: Never Substance Use Topics Alcohol use: Yes Drug use: No ALLERGIES No Known Allergies MEDICATIONS Current Outpatient Medications on File Prior to Encounter Medication Sig Dispense Refill atorvastatin (Lipitor) 20 MG tablet Take 20 mg by mouth daily. hydroCHLOROthiazide (HYDRODiuril) 25 MG tablet Take 25 mg by mouth daily. metoprolol succinate XL (Toprol-XL) 25 MG 24 hr tablet Take 25 mg by mouth daily. Do not crush or chew. Multiple Vitamin (multivitamin) tablet Take 1 tablet by mouth daily. pantoprazole (ProtoNix) 40 MG EC tablet Take 40 mg by mouth every morning (before breakfast). Do not crush, chew, or split. ramipril (Altace) 10 MG capsule Take 10 mg by mouth 2 times daily. rivaroxaban (Xarelto) 15 MG tablet Take 15 mg by mouth daily. Take with food. spironolactone (Aldactone) 25 MG tablet Take 25 mg by mouth daily. Current Facility-Administered Medications on File Prior to Encounter Medication Dose Route Frequency Provider Last Rate Last Admin lidocaine (Xylocaine) 2 % gel Topical PRN Abiodun Epps DPM REVIEW OF SYSTEMS Pertinent items are noted in HPI. Objective: BP 124/64 Pulse 80 Temp 36.1 ?C (97 ?F) Resp 18 Wt Readings from Last 3 Encounters: 04/09/23 104 kg (230 lb) 10/30/21 104 kg (230 lb) 07/05/21 102 kg (225 lb) PHYSICAL EXAM General Appearance: alert and oriented to person, place and time, well developed and well- nourished, in no acute distress Skin: warm and dry, no rash. Nails are noted to be thick, yellow, and crumbly. Ulcer noted stage II on left lower leg . Wound wound healing, no sign of infection. Surrounding skin clear/intact, discoloration, and edema Head: normocephalic and atraumatic Eyes: pupils equal, round, and reactive to light, extraocular eye movements intact, conjunctivae normal ENT: tympanic membrane, external ear and ear canal normal bilaterally, nose without deformity, nasal mucosa and turbinates normal without polyps Neck: supple and non-tender without mass, no thyromegaly or thyroid nodules, no cervical lymphadenopathy Pulmonary/Chest: clear to auscultation bilaterally- no wheezes, rales or rhonchi, normal air movement, no respiratory distress (more content not included)... [facility] 05-28-2023 Hospital Discharge instructions Mar Resendiz RN - 05/28/2023 11:00 AM EDT Daily dressing changes. Wash with antibacterial soap and water. Apply dry dressing until no drainage is seen. You may cancel next appointment if you are healed. Avoid standing for long periods of time, Elevate legs to the level of the heart or above for 30 minutes daily and/or when sitting, a frequency of: above hip level when sitting Call for signs of infection which include increased redness, increased pain, foul drainage, wound area hot to touch, and fever. If clinic is closed go to ER. documented in this encounter [facility] 05-14-2023 Note Encounter addended b y: Emily Malin on: 08/06/2023 11:22 AM Actions taken: Problem List modified, Visit diagnoses modified [facility] 05-14-2023 Note [facility] Progress Note and Procedure Note Marci Ferrari AGE: 82 y.o. GENDER: male : 1940 EPISODE DATE: 05/14/23 Subjective: Patient complains of a skin ulcer. The ulcer is located on the left lower leg(s). Ulcer has been present for several months. Pain is rated as 2/10. Interventions to date: debridements, off-loading and compression . Patient denies tobacco use. Patient denies having a history of diabetes. HISTORY of PRESENT ILLNESS HPI History of Wound Context: Venous Stasis Ulcer / Venous Insufficiency: 1.Are compression bandages and/or garments being consistently applied? Yes 2. Is elevation/ambulation being encouraged? Yes Quality of pain: aching, burning, and tingling Wound/Ulcer Pain Timing/Severity: 2 / 10 Modifying Factors: PVD Associated Signs/Symptoms:wound drainage Interval History: Patient presents today for follow up on wound/ulcer's progression. The patient is currently not on antibiotics. Current dressing care includes collagen, DSD, and compression. 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 Atrial fibrillation ([facility] Atrial flutter ([facility]) 06/20/2021 Bandemia 06/20/2021 Bilateral hearing loss 06/20/2021 Bilateral inguinal hernia 03/27/2017 Cervical arthritis 06/20/2021 Diaphragmatic hernia 01/21/2006 Difficulty walking 03/11/2021 Dyspnea on exertion 06/20/2021 Edentulous 06/20/2021 Encounter for long-term (current) use of insulin (CMS/HCC) ([facility]) 12/26/2010 Esophagitis 01/21/2006 Essential hypertension 12/26/2010 Full thickness rotator cuff tear 10/18/2017 History of radiofrequency ablation (RFA) for complex left atrial arrhythmia 11/03/2015 Hypercoagulable state (HCC) 03/11/2021 Hyperlipidemia Hypertension Impingement syndrome of shoulder region 10/18/2017 Incisional hernia 07/03/2007 Leukocytosis 03/11/2021 Lower urinary tract symptoms due to benign prostatic hyperplasia 03/11/2021 Obesity with body mass index 30 or greater 06/20/2021 Obstructive sleep apnea syndrome 09/22/2013 Pelvic pain in male 06/20/2021 Pes cavus 05/15/2018 Pulmonary hypertension (HCC) 03/11/2021 S/P CABG (coronary artery bypass graft) 06/20/2021 Senile purpura ([facility]/HCC) ([facility]) 03/11/2021 Septic prepatellar bursitis 05/13/2012 Temporal arteritis ([facility]) ([facility]) 03/11/2021 Transient ischemic attack 11/04/2015 PAST SURGICAL HISTORY Past Surgical History: Procedure Laterality Date ABLATION OF DYSRHYTHMIC FOCUS CARDIAC SURGERY triple bypass FAMILY HISTORY No family history on file. SOCIAL HISTORY Social History Tobacco Use Smoking status: Former Smokeless tobacco: Never Substance Use Topics Alcohol use: Yes Drug use: No ALLERGIES No Known Allergies MEDICATIONS Current Outpatient Medications on File Prior to Encounter Medication Sig Dispense Refill atorvastatin (Lipitor) 20 MG tablet Take 20 mg by mouth daily. hydroCHLOROthiazide (HYDRODiuril) 25 MG tablet Take 25 mg by mouth daily. metoprolol succinate XL (Toprol-XL) 25 MG 24 hr tablet Take 25 mg by mouth daily. Do not crush or chew. Multiple Vitamin (multivitamin) tablet Take 1 tablet by mouth daily. pantoprazole (ProtoNix) 40 MG EC tablet Take 40 mg by mouth every morning (before breakfast). Do not crush, chew, or split. ramipril (Altace) 10 MG capsule Take 10 mg by mouth 2 times daily. rivaroxaban (Xarelto) 15 MG tablet Take 15 mg by mouth daily. Take with food. spironolactone (Aldactone) 25 MG tablet Take 25 mg by mouth daily. Current Facility-Administered Medications on File Prior to Encounter Medication Dose Route Frequency Provider Last Rate Last Admin lidocaine (Xylocaine) 2 % gel Topical PRN Abiodun Epps DPM REVIEW OF SYSTEMS Pertinent items are noted in HPI. Objective: BP (!) 133/95 Pulse 97 Temp 36.3 ?C (97.3 ?F) Resp 21 Wt Readings from Last 3 Encounters: 04/09/23 104 kg (230 lb) 10/30/21 104 kg (230 lb) 07/05/21 102 kg (225 lb) PHYSICAL EXAM General Appearance: alert and oriented to person, place and time, well developed and well- nourished, in no acute distress Skin: warm and dry, no rash. Nails are noted to be thick, yellow, and crumbly. Ulcer noted stage II on left lower leg . Wound wound healing, no sign of infection. Surrounding skin clear/intact, discoloration, and edema Head: normocephalic and atraumatic Eyes: pupils equal, round, and reactive to light, extraocular eye movements intact, conjunctivae normal ENT: tympanic membrane, external ear and ear canal normal bilaterally, nose without deformity, nasal mucosa and turbinates normal without polyps Neck: supple and non-tender without mass, no thyromegaly or thyroid nodules, no cervical lymphadenopathy Pulmonary/Chest: clear to auscultation bilaterally- no wheezes, rales or rhonchi, normal air movement, no respiratory distress Ca (more content not included)... [facility] 05-14-2023 History of Present illness Narrative Formatting of this note is different fro m the original. Images from the original note were not included. [facility] Progress Note and Procedure Note Marci Ferrari AGE: 82 y.o. GENDER: male : 1940 EPISODE DATE: 05/14/23 Subjective: Patient complains of a skin ulcer. The ulcer is located on the left lower leg(s). Ulcer has been present for several months. Pain is rated as 2/10. Interventions to date: debridements, off-loading and compression . Patient denies tobacco use. Patient denies having a history of diabetes. HISTORY of PRESENT ILLNESS HPI History of Wound Context: Venous Stasis Ulcer / Venous Insufficiency: 1.Are compression bandages and/or garments being consistently applied? Yes 2. Is elevation/ambulation being encouraged? Yes Quality of pain: aching, burning, and tingling Wound/Ulcer Pain Timing/Severity: 2 / 10 Modifying Factors: PVD Associated Signs/Symptoms:wound drainage Interval History: Patient presents today for follow up on wound/ulcer's progression. The patient is currently not on antibiotics. Current dressing care includes collagen, DSD, and compression. 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 Atrial fibrillation ([facility]) Atrial flutter ([facility]) 06/20/2021 Bandemia 06/20/2021 Bilateral hearing loss 06/20/2021 Bilateral inguinal hernia 03/27/2017 Cervical arthritis 06/20/2021 Diaphragmatic hernia 01/21/2006 Difficulty walking 03/11/2021 Dyspnea on exertion 06/20/2021 Edentulous 06/20/2021 Encounter for long-term (current) use of insulin ([facility] ([facility]) 12/26/2010 Esophagitis 01/21/2006 Essential hypertension 12/26/2010 Full thickness rotator cuff tear 10/18/2017 History of radiofrequency ablation (RFA) for complex left atrial arrhythmia 11/03/2015 Hypercoagulable state ([facility]) 03/11/2021 Hyperlipidemia Hypertension Impingement syndrome of shoulder region 10/18/2017 Incisional hernia 07/03/2007 Leukocytosis 03/11/2021 Lower urinary tract symptoms due to benign prostatic hyperplasia 03/11/2021 Obesity with body mass index 30 or greater 06/20/2021 Obstructive sleep apnea syndrome 09/22/2013 Pelvic pain in male 06/20/2021 Pes cavus 05/15/2018 Pulmonary hypertension ([facility]) 03/11/2021 S/P CABG (coronary artery bypass graft) 06/20/2021 Senile purpura ([facility]) ([facility]) 03/11/2021 Septic prepatellar bursitis 05/13/2012 Temporal arteritis ([facility]) ([facility]) 03/11/2021 Transient ischemic attack 11/04/2015 PAST SURGICAL HISTORY Past Surgical History: Procedure Laterality Date ABLATION OF DYSRHYTHMIC FOCUS CARDIAC SURGERY triple bypass FAMILY HISTORY No family history on file. SOCIAL HISTORY Social History Tobacco Use Smoking status: Former Smokeless tobacco: Never Substance Use Topics Alcohol use: Yes Drug use: No ALLERGIES No Known Allergies MEDICATIONS Current Outpatient Medications on File Prior to Encounter Medication Sig Dispense Refill atorvastatin (Lipitor) 20 MG tablet Take 20 mg by mouth daily. hydroCHLOROthiazide (HYDRODiuril) 25 MG tablet Take 25 mg by mouth daily. metoprolol succinate XL (Toprol-XL) 25 MG 24 hr tablet Take 25 mg by mouth daily. Do not crush or chew. Multiple Vitamin (multivitamin) tablet Take 1 tablet by mouth daily. pantoprazole (ProtoNix) 40 MG EC tablet Take 40 mg by mouth every morning (before breakfast). Do not crush, chew, or split. ramipril (Altace) 10 MG capsule Take 10 mg by mouth 2 times daily. rivaroxaban (Xarelto) 15 MG tablet Take 15 mg by mouth daily. Take with food. spironolactone (Aldactone) 25 MG tablet Take 25 mg by mouth daily. Current Facility-Administered Medications on File Prior to Encounter Medication Dose Route Frequency Provider Last Rate Last Admin lidocaine (Xylocaine) 2 % gel Topical PRN Abiodun Epps DPM REVIEW OF SYSTEMS Pertinent items are noted in HPI. Objective: BP (!) 133/95 Pulse 97 Temp 36.3 C (97.3 F) Resp 21 Wt Readings from Last 3 Encounters: 04/09/23 104 kg (230 lb) 10/30/21 104 kg (230 lb) 07/05/21 102 kg (225 lb) PHYSICAL EXAM General Appearance: alert and oriented to person, place and time, well developed and well- nourished, in no acute distress Skin: warm and dry, no rash. Nails are noted to be thick, yellow, and crumbly. Ulcer noted stage II on left lower leg . Wound wound healing, no sign of infection. Surrounding skin clear/intact, discoloration, and edema Head: normocephalic and atraumatic Eyes: pupils equal, round, and reactive to light, extraocular eye movements intact, conjunctivae normal ENT: tympanic membrane, external ear and ear canal normal bilaterally, nose without deformity, nasal mucosa and turbinates normal without polyps Neck: supple and non-tender without mass, no thyromegaly or thyroid nodules, no cervical lymphadenopathy Pulmonary/Chest: clear to auscultation bilaterally- no wheezes, rales or rhonchi, normal air movement, no respiratory distress Cardiovascular: normal rate, regular rhythm, normal S1 and S2, no murmurs, rubs, clicks, or gallops, distal pulses intact, no carotid bruits Abdomen: soft, non-tender, non-distended, normal bowel sounds, no masses or organomegaly Extremities: Lower extremity Pulses Normal. Edema lower extremities 2+ Musculoskeletal: +5/5 muscle strength in all quads Hammertoe contractures noted bilateral Neurologic: No cranial nerve deficit, gait, coordination and speech normal. both lower extremities diminished Wound/Incision 04/09/23 Traumatic Lower Leg Left;Proximal;Anterior (Active) Wound Image 05/14/23 1057 Site Assessment Red;Sloughing 05/14/23 1057 Mar-Wound Assessment Indurated 05/14/23 1057 Wound Length (cm) 2.7 cm 05/14/23 1057 Wound Width (cm) 0.8 cm 05/14/23 1057 Wound Surface Area (cm^2) 2.16 cm^2 05/14/23 1057 Wound Depth (cm) 0.1 cm 05/14/23 1057 Wound Volume (cm^3) 0.216 cm^3 05/14/23 1057 Wound Healing % 36 05/14/23 1057 Drainage Description Serosanguineous 05/14/23 1057 Odor None 04/30/23 1102 Drainage Amount Moderate 05/14/23 1057 Treatments Cleansed 05/14/23 1057 Primary Dressing Xeroform 05/14/23 1130 Secondary Dressing 4x4 gauze 05/14/23 1130 Secured with Kerlex 05/14/23 1130 Compression Double Layer tubigrip 04/16/23 0949 Dressing Status New dressing applied;Clean, dry & intact 05/14/23 1130 Wound Bed Granulation (%) 60 % 05/14/23 1057 Wound Bed Slough (%) 40 % 05/14/23 1057 Tunneling 0 cm 05/14/23 1057 Undermining 0 cm 05/14/23 1057 Margins Well-defined edges 05/14/23 1057 Number of days: 35 LABS CBC: No results found for: WBC, HGB, HCT, MCV, PLT BMP: No results found for: NA, K, CL, CO2, PHOS, BUN, CREATININE PT/INR: No results found for: PROTIME, INR Prealbumin: No results found for: PREALBUMIN Albumin:No components found for: LABALBU Sed Rate:No results found for: SEDRATE Micro: No components found for: BC Assessment: 1. Generalized edema 2. Traumatic open wound of left lower leg, initial encounter 3. Skin ulcer of calf, left, with fat layer exposed (HCC) 4. Pain in left lower leg 5. Traumatic hematoma of lower leg, left, subsequent encounter 6. Wound of left lower extremity, subsequent encounter 7. Venous insufficiency (chronic) (peripheral) Procedure Note Indications: Based on my examination of this patient's wound(s)/ulcer(s) today, debridement is required to promote healing and evaluate the extent healing. Performed by: ABIODUN EPPS DPM Time out taken: Yes Pain control: 2% lidocaine topical jelly Debridement:Excisional Debridement Using a curette, scalpel, and/or rongeur, the wound(s)/ulcer(s) was/were sharply debrided down through Subcutaneous tissue with removal of all necrotic, fibrotic, and hyperkeratotic tissue. Pre Debridement Measurements: Are located in the Wound/Ulcer Documentation Flow Sheet Wound/Ulcer #: left lower leg Post Debridement Measurements: Wound/Ulcer Descriptions are listed under Physical Exam above. Wound/Ulcer Descriptions are Pre Debridement except measurements Percent of Wound/Ulcer Debrided: 100% Total Surface Area Debrided: 3 sq cm Bleeding: Minimal Hemostasis Achieved: pressure Procedural Pain: 2 / 10 Post Procedural Pain: 1/ 10 Response to treatment: Well tolerated by patient. Plan: Patient examined and evaluated. Patient understands all that has been explained to him and He wishes to proceed with current treatment. Patient understands all risks, benefits, procedures, mar-operative management, and possible complications. All questions answered and no guarantees made or implied. Wound Debrided: Yes Nails Debrided: No Lesions Debrided: No Antibiotics: No Discharge Treatment: Discussed appropriate home care of this wound., Dispensed dressing supplies and instructions on their use., Wound redressed. Current wound treatment: Orders Placed This Encounter Procedures Wound Care OP Follow-up 2 weeks Dressing Order: Xeroform; Daily; ABDs; Kerlex, Paper tape; (compression wrap) Order Specific Question: Primary Dressing Answer: Xeroform Order Specific Question: Dressing Frequency Answer: Daily Order Specific Question: Secondary Dressing Answer: ABDs Order Specific Question: Secured With Answer: Kerlex Order Specific Question: Secured With Answer: Paper tape Scheduled F/U in 1 week. Please see attached Discharge Instructions. Written patient dismissal instructions given to patient and signed by patient or POA. documented in this encounter [facility] 05-14-2023 History of Present illness Narrative Formatting of this note is different fro m the original. Images from the original note were not included. [facility] Progress Note and Procedure Note Marci Ferrari AGE: 82 y.o. GENDER: male : 1940 EPISODE DATE: 05/14/23 Subjective: Patient complains of a skin ulcer. The ulcer is located on the left lower leg(s). Ulcer has been present for several months. Pain is rated as 2/10. Interventions to date: debridements, off-loading and compression . Patient denies tobacco use. Patient denies having a history of diabetes. HISTORY of PRESENT ILLNESS HPI History of Wound Context: Venous Stasis Ulcer / Venous Insufficiency: 1.Are compression bandages and/or garments being consistently applied? Yes 2. Is elevation/ambulation being encouraged? Yes Quality of pain: aching, burning, and tingling Wound/Ulcer Pain Timing/Severity: Modifying Factors: PVD Associated Signs/Symptoms:wound drainage Interval History: Patient presents today for follow up on wound/ulcer's progression. The patient is currently not on antibiotics. Current dressing care includes collagen, DSD, and compression. 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 Atrial fibrillation ([facility]) Atrial flutter ([facility]) 06/20/2021 Bandemia 06/20/2021 Bilateral hearing loss 06/20/2021 Bilateral inguinal hernia 03/27/2017 Cervical arthritis 06/20/2021 Diaphragmatic hernia 01/21/2006 Difficulty walking 03/11/2021 Dyspnea on exertion 06/20/2021 Edentulous 06/20/2021 Encounter for long-term (current) use of insulin ([facility]) 12/26/2010 Esophagitis 01/21/2006 Essential hypertension 12/26/2010 Full thickness rotator cuff tear 10/18/2017 History of radiofrequency ablation (RFA) for complex left atrial arrhythmia 11/03/2015 Hypercoagulable state ([facility]) 03/11/2021 Hyperlipidemia Hypertension Impingement syndrome of shoulder region 10/18/2017 Incisional hernia 07/03/2007 Leukocytosis 03/11/2021 Lower urinary tract symptoms due to benign prostatic hyperplasia 03/11/2021 Obesity with body mass index 30 or greater 06/20/2021 Obstructive sleep apnea syndrome 09/22/2013 Pelvic pain in male 06/20/2021 Pes cavus 05/15/2018 Pulmonary hypertension ([facility]) 03/11/2021 S/P CABG (coronary artery bypass graft) 06/20/2021 Senile purpura ([facility] ([facility]) 03/11/2021 Septic prepatellar bursitis 05/13/2012 Temporal arteritis ([facility]) ([facility]) 03/11/2021 Transient ischemic attack 11/04/2015 PAST SURGICAL HISTORY Past Surgical History: Procedure Laterality Date ABLATION OF DYSRHYTHMIC FOCUS CARDIAC SURGERY triple bypass FAMILY HISTORY No family history on file. SOCIAL HISTORY Social History Tobacco Use Smoking status: Former Smokeless tobacco: Never Substance Use Topics Alcohol use: Yes Drug use: No ALLERGIES No Known Allergies MEDICATIONS Current Outpatient Medications on File Prior to Encounter Medication Sig Dispense Refill atorvastatin (Lipitor) 20 MG tablet Take 20 mg by mouth daily. hydroCHLOROthiazide (HYDRODiuril) 25 MG tablet Take 25 mg by mouth daily. metoprolol succinate XL (Toprol-XL) 25 MG 24 hr tablet Take 25 mg by mouth daily. Do not crush or chew. Multiple Vitamin (multivitamin) tablet Take 1 tablet by mouth daily. pantoprazole (ProtoNix) 40 MG EC tablet Take 40 mg by mouth every morning (before breakfast). Do not crush, chew, or split. ramipril (Altace) 10 MG capsule Take 10 mg by mouth 2 times daily. rivaroxaban (Xarelto) 15 MG tablet Take 15 mg by mouth daily. Take with food. spironolactone (Aldactone) 25 MG tablet Take 25 mg by mouth daily. Current Facility-Administered Medications on File Prior to Encounter Medication Dose Route Frequency Provider Last Rate Last Admin lidocaine (Xylocaine) 2 % gel Topical PRN Abiodun Epps DPM REVIEW OF SYSTEMS Pertinent items are noted in HPI. Objective: BP (!) 133/95 Pulse 97 Temp 36.3 C (97.3 F) Resp 21 Wt Readings from Last 3 Encounters: 04/09/23 104 kg (230 lb) 10/30/21 104 kg (230 lb) 07/05/21 102 kg (225 lb) PHYSICAL EXAM General Appearance: alert and oriented to person, place and time, well developed and well- nourished, in no acute distress Skin: warm and dry, no rash. Nails are noted to be thick, yellow, and crumbly. Ulcer noted stage II on left lower leg . Wound wound healing, no sign of infection. Surrounding skin clear/intact, discoloration, and edema Head: normocephalic and atraumatic Eyes: pupils equal, round, and reactive to light, extraocular eye movements intact, conjunctivae normal ENT: tympanic membrane, external ear and ear canal normal bilaterally, nose without deformity, nasal mucosa and turbinates normal without polyps Neck: supple and non-tender without mass, no thyromegaly or thyroid nodules, no cervical lymphadenopathy Pulmonary/Chest: clear to auscultation bilaterally- no wheezes, rales or rhonchi, normal air movement, no respiratory distress Cardiovascular: normal rate, regular rhythm, normal S1 and S2, no murmurs, rubs, clicks, or gallops, distal pulses intact, no carotid bruits Abdomen: soft, non-tender, non-distended, normal bowel sounds, no masses or organomegaly Extremities: Lower extremity Pulses Normal. Edema lower extremities 2+ Musculoskeletal: +5/5 muscle strength in all quads Hammertoe contractures noted bilateral Neurologic: No cranial nerve deficit, gait, coordination and speech normal. both lower extremities diminished Wound/Incision 04/09/23 Traumatic Lower Leg Left;Proximal;Anterior (Active) Wound Image 05/14/23 1057 Site Assessment Red;Sloughing 05/14/23 1057 Mar-Wound Assessment Indurated 05/14/23 1057 Wound Length (cm) 2.7 cm 05/14/23 1057 Wound Width (cm) 0.8 cm 05/14/23 1057 Wound Surface Area (cm^2) 2.16 cm^2 05/14/23 1057 Wound Depth (cm) 0.1 cm 05/14/23 1057 Wound Volume (cm^3) 0.216 cm^3 05/14/23 1057 Wound Healing % 36 05/14/23 1057 Drainage Description Serosanguineous 05/14/23 1057 Odor None 04/30/23 1102 Drainage Amount Moderate 05/14/23 1057 Treatments Cleansed 05/14/23 1057 Primary Dressing Xeroform 05/14/23 1130 Secondary Dressing 4x4 gauze 05/14/23 1130 Secured with Kerlex 05/14/23 1130 Compression Double Layer tubigrip 04/16/23 0949 Dressing Status New dressing applied;Clean, dry & intact 05/14/23 1130 Wound Bed Granulation (%) 60 % 05/14/23 1057 Wound Bed Slough (%) 40 % 05/14/23 1057 Tunneling 0 cm 05/14/23 1057 Undermining 0 cm 05/14/23 1057 Margins Well-defined edges 05/14/23 1057 Number of days: 35 LABS CBC: No results found for: WBC, HGB, HCT, MCV, PLT BMP: No results found for: NA, K, CL, CO2, PHOS, BUN, CREATININE PT/INR: No results found for: PROTIME, INR Prealbumin: No results found for: PREALBUMIN Albumin:No components found for: LABALBU Sed Rate:No results found for: SEDRATE Micro: No components found for: BC Assessment: 1. Generalized edema 2. Traumatic open wound of left lower leg, initial encounter 3. Skin ulcer of calf, left, with fat layer exposed (HCC) 4. Pain in left lower leg 5. Traumatic hematoma of lower leg, left, subsequent encounter 6. Wound of left lower extremity, subsequent encounter 7. Venous insufficiency (chronic) (peripheral) Procedure Note Indications: Based on my examination of this patient's wound(s)/ulcer(s) today, debridement is required to promote healing and evaluate the extent healing. Performed by: ABIODUN EPPS DPM Time out taken: Yes Pain control: 2% lidocaine topical jelly Debridement:Excisional Debridement Using a curette, scalpel, and/or rongeur, the wound(s)/ulcer(s) was/were sharply debrided down through Subcutaneous tissue with removal of all necrotic, fibrotic, and hyperkeratotic tissue. Pre Debridement Measurements: Are located in the Wound/Ulcer Documentation Flow Sheet Wound/Ulcer #: left lower leg Post Debridement Measurements: Wound/Ulcer Descriptions are listed under Physical Exam above. Wound/Ulcer Descriptions are Pre Debridement except measurements Percent of Wound/Ulcer Debrided: 100% Total Surface Area Debrided: 3 sq cm Bleeding: Minimal Hemostasis Achieved: pressure Procedural Pain: 2 / 10 Post Procedural Pain: 1/ 10 Response to treatment: Well tolerated by patient. Plan: Patient examined and evaluated. Patient understands all that has been explained to him and He wishes to proceed with current treatment. Patient understands all risks, benefits, procedures, mar-operative management, and possible complications. All questions answered and no guarantees made or implied. Wound Debrided: Yes Nails Debrided: No Lesions Debrided: No Antibiotics: No Discharge Treatment: Discussed appropriate home care of this wound., Dispensed dressing supplies and instructions on their use., Wound redressed. Current wound treatment: Orders Placed This Encounter Procedures Wound Care OP Follow-up 2 weeks Dressing Order: Xeroform; Daily; ABDs; Kerlex, Paper tape; (compression wrap) Order Specific Question: Primary Dressing Answer: Xeroform Order Specific Question: Dressing Frequency Answer: Daily Order Specific Question: Secondary Dressing Answer: ABDs Order Specific Question: Secured With Answer: Kerlex Order Specific Question: Secured With Answer: Paper tape Scheduled F/U in 1 week. Please see attached Discharge Instructions. Written patient dismissal instructions given to patient and signed by patient or POA. documented in this encounter [facility] 05-14-2023 Hospital Discharge instructions Mar Resendiz RN - 05/14/2023 11:00 AM EDT Daily dressing changes. Wash with antibacterial soap and water. Apply xeroform, dry dressing and wear tubigrip or compression wrap as much as possible. Warm compress twice a day. Avoid standing for long periods of time, Elevate legs to the level of the heart or above for 30 minutes daily and/or when sitting, a frequency of: above hip level when sitting Call for signs of infection which include increased redness, increased pain, foul drainage, wound area hot to touch, and fever. If clinic is closed go to ER. documented in this encounter [facility] 05-14-2023 Hospital Discharge instructions Mar Resendiz RN - 05/14/2023 11:00 AM EDT Daily dressing changes. Wash with antibacterial soap and water. Apply xeroform, dry dressing and wear tubigrip or compression wrap as much as possible. Warm compress twice a day. Avoid standing for long periods of time, Elevate legs to the level of the heart or above for 30 minutes daily and/or when sitting, a frequency of: above hip level when sitting Call for signs of infection which include increased redness, increased pain, foul drainage, wound area hot to touch, and fever. If clinic is closed go to ER. documented in this encounter [facility] 05-14-2023 Miscellaneous Notes Encounter addended by: Emily jurado on: 08/06/2023 11:22 AM Actions taken: Problem List modified, Visit diagnoses modified documented in this encounter [facility] 05-14-2023 Note Encounter addended b y: Emily Malin on: 08/06/2023 11:22 AM Actions taken: Problem List modified, Visit diagnoses modified [facility] 04-30-2023 Note [facility] Progress Note and Procedure Note Marci Ferrari AGE: 82 y.o. GENDER: male : 1940 EPISODE DATE: 04/30/23 Subjective: Patient complains of a skin ulcer. The ulcer is located on the left lower leg(s). Ulcer has been present for several weeks. Pain is rated as 3/10. Interventions to date: debridements, compression, and off-loading . Patient was a former tobacco user. Patient denies having a history of diabetes. HISTORY of PRESENT ILLNESS HPI History of Wound Context: Venous Stasis Ulcer / Venous Insufficiency: 1.Are compression bandages and/or garments being consistently applied? Yes 2. Is elevation/ambulation being encouraged? Yes Quality of pain: aching, burning, and tingling Wound/Ulcer Pain Timing/Severity: Modifying Factors: PVD Associated Signs/Symptoms:wound drainage Interval History: Patient presents today for follow up on wound/ulcer's progression. The patient is currently not on antibiotics. Current dressing care includes collagen, DSD, and compression. 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 Atrial fibrillation ([facility] Atrial flutter ([facility]) 06/20/2021 Bandemia 06/20/2021 Bilateral hearing loss 06/20/2021 Bilateral inguinal hernia 03/27/2017 Cervical arthritis 06/20/2021 Diaphragmatic hernia 01/21/2006 Difficulty walking 03/11/2021 Dyspnea on exertion 06/20/2021 Edentulous 06/20/2021 Encounter for long-term (current) use of insulin ([facility]) 12/26/2010 Esophagitis 01/21/2006 Essential hypertension 12/26/2010 Full thickness rotator cuff tear 10/18/2017 History of radiofrequency ablation (RFA) for complex left atrial arrhythmia 11/03/2015 Hypercoagulable state ([facility]) 03/11/2021 Hyperlipidemia Hypertension Impingement syndrome of shoulder region 10/18/2017 Incisional hernia 07/03/2007 Leukocytosis 03/11/2021 Lower urinary tract symptoms due to benign prostatic hyperplasia 03/11/2021 Obesity with body mass index 30 or greater 06/20/2021 Obstructive sleep apnea syndrome 09/22/2013 Pelvic pain in male 06/20/2021 Pes cavus 05/15/2018 Pulmonary hypertension ([facility]) 03/11/2021 S/P CABG (coronary artery bypass graft) 06/20/2021 Senile purpura ([facility]) 03/11/2021 Septic prepatellar bursitis 05/13/2012 Temporal arteritis ([facility]) 03/11/2021 Transient ischemic attack 11/04/2015 PAST SURGICAL HISTORY Past Surgical History: Procedure Laterality Date ABLATION OF DYSRHYTHMIC FOCUS CARDIAC SURGERY triple bypass FAMILY HISTORY No family history on file. SOCIAL HISTORY Social History Tobacco Use Smoking status: Former Smokeless tobacco: Never Substance Use Topics Alcohol use: Yes Drug use: No ALLERGIES No Known Allergies MEDICATIONS Current Outpatient Medications on File Prior to Encounter Medication Sig Dispense Refill atorvastatin (Lipitor) 20 MG tablet Take 20 mg by mouth daily. hydroCHLOROthiazide (HYDRODiuril) 25 MG tablet Take 25 mg by mouth daily. metoprolol succinate XL (Toprol-XL) 25 MG 24 hr tablet Take by mouth. Do not crush or chew. Multiple Vitamin (multivitamin) tablet Take 1 tablet by mouth daily. pantoprazole (ProtoNix) 40 MG EC tablet Take 40 mg by mouth every morning (before breakfast). Do not crush, chew, or split. ramipril (Altace) 10 MG capsule Take 10 mg by mouth 2 times daily. rivaroxaban (Xarelto) 15 MG tablet Take by mouth. Take with food. spironolactone (Aldactone) 25 MG tablet Take by mouth daily. Current Facility-Administered Medications on File Prior to Encounter Medication Dose Route Frequency Provider Last Rate Last Admin lidocaine (Xylocaine) 2 % gel Topical PRN Abiodun Epps DPM REVIEW OF SYSTEMS Pertinent items are noted in HPI. Objective: BP 123/66 Pulse 73 Temp 36.6 ?C (97.9 ?F) (Temporal) Resp 18 Wt Readings from Last 3 Encounters: 04/09/23 230 lb (104 kg) 10/30/21 230 lb (104 kg) 07/05/21 225 lb (102 kg) PHYSICAL EXAM General Appearance: alert and oriented to person, place and time, well developed and well- nourished, in no acute distress Skin: warm and dry, no rash. Nails are noted to be thick, yellow, and crumbly. Ulcer noted stage II on left lower leg . Wound wound healing, no sign of infection. Surrounding skin clear/intact, discoloration, and edema Head: normocephalic and atraumatic Eyes: pupils equal, round, and reactive to light, extraocular eye movements intact, conjunctivae normal ENT: tympanic membrane, external ear and ear canal normal bilaterally, nose without deformity, nasal mucosa and turbinates normal without polyps Neck: supple and non-tender without mass, no thyromegaly or thyroid nodules, no cervical lymphadenopathy Pulmonary/Chest: clear to auscultation bilaterally- no wheezes, rales or rhonchi, normal air movement, no respiratory distress Cardiovascular: n (more content not included)... [facility] 04-30-2023 Note Encounter addended b y: Nichole Chatterjee RN on: 07/26/2023 3:49 PM Actions taken: Visit diagnoses modified [facility] 04-30-2023 History of Present illness Narrative Formatting of this note is different fro m the original. Images from the original note were not included. [facility] Progress Note and Procedure Note Marci Ferrari AGE: 82 y.o. GENDER: male : 1940 EPISODE DATE: 04/30/23 Subjective: Patient complains of a skin ulcer. The ulcer is located on the left lower leg(s). Ulcer has been present for several weeks. Pain is rated as 3/10. Interventions to date: debridements, compression, and off-loading . Patient was a former tobacco user. Patient denies having a history of diabetes. HISTORY of PRESENT ILLNESS HPI History of Wound Context: Venous Stasis Ulcer / Venous Insufficiency: 1.Are compression bandages and/or garments being consistently applied? Yes 2. Is elevation/ambulation being encouraged? Yes Quality of pain: aching, burning, and tingling Wound/Ulcer Pain Timing/Severity: 3 10 Modifying Factors: PVD Associated Signs/Symptoms:wound drainage Interval History: Patient presents today for follow up on wound/ulcer's progression. The patient is currently not on antibiotics. Current dressing care includes collagen, DSD, and compression. 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 Atrial fibrillation ([facility]) Atrial flutter ([facility]) 06/20/2021 Bandemia 06/20/2021 Bilateral hearing loss 06/20/2021 Bilateral inguinal hernia 03/27/2017 Cervical arthritis 06/20/2021 Diaphragmatic hernia 01/21/2006 Difficulty walking 03/11/2021 Dyspnea on exertion 06/20/2021 Edentulous 06/20/2021 Encounter for long-term (current) use of insulin ([facility]) 12/26/2010 Esophagitis 01/21/2006 Essential hypertension 12/26/2010 Full thickness rotator cuff tear 10/18/2017 History of radiofrequency ablation (RFA) for complex left atrial arrhythmia 11/03/2015 Hypercoagulable state ([facility]) 03/11/2021 Hyperlipidemia Hypertension Impingement syndrome of shoulder region 10/18/2017 Incisional hernia 07/03/2007 Leukocytosis 03/11/2021 Lower urinary tract symptoms due to benign prostatic hyperplasia 03/11/2021 Obesity with body mass index 30 or greater 06/20/2021 Obstructive sleep apnea syndrome 09/22/2013 Pelvic pain in male 06/20/2021 Pes cavus 05/15/2018 Pulmonary hypertension ([facility]) 03/11/2021 S/P CABG (coronary artery bypass graft) 06/20/2021 Senile purpura ([facility]) [facility]) 03/11/2021 Septic prepatellar bursitis 05/13/2012 Temporal arteritis ([facility] ([facility]) 03/11/2021 Transient ischemic attack 11/04/2015 PAST SURGICAL HISTORY Past Surgical History: Procedure Laterality Date ABLATION OF DYSRHYTHMIC FOCUS CARDIAC SURGERY triple bypass FAMILY HISTORY No family history on file. SOCIAL HISTORY Social History Tobacco Use Smoking status: Former Smokeless tobacco: Never Substance Use Topics Alcohol use: Yes Drug use: No ALLERGIES No Known Allergies MEDICATIONS Current Outpatient Medications on File Prior to Encounter Medication Sig Dispense Refill atorvastatin (Lipitor) 20 MG tablet Take 20 mg by mouth daily. hydroCHLOROthiazide (HYDRODiuril) 25 MG tablet Take 25 mg by mouth daily. metoprolol succinate XL (Toprol-XL) 25 MG 24 hr tablet Take by mouth. Do not crush or chew. Multiple Vitamin (multivitamin) tablet Take 1 tablet by mouth daily. pantoprazole (ProtoNix) 40 MG EC tablet Take 40 mg by mouth every morning (before breakfast). Do not crush, chew, or split. ramipril (Altace) 10 MG capsule Take 10 mg by mouth 2 times daily. rivaroxaban (Xarelto) 15 MG tablet Take by mouth. Take with food. spironolactone (Aldactone) 25 MG tablet Take by mouth daily. Current Facility-Administered Medications on File Prior to Encounter Medication Dose Route Frequency Provider Last Rate Last Admin lidocaine (Xylocaine) 2 % gel Topical PRN Abiodun Epps DPM REVIEW OF SYSTEMS Pertinent items are noted in HPI. Objective: BP 123/66 Pulse 73 Temp 36.6 C (97.9 F) (Temporal) Resp 18 Wt Readings from Last 3 Encounters: 04/09/23 230 lb (104 kg) 10/30/21 230 lb (104 kg) 07/05/21 225 lb (102 kg) PHYSICAL EXAM General Appearance: alert and oriented to person, place and time, well developed and well- nourished, in no acute distress Skin: warm and dry, no rash. Nails are noted to be thick, yellow, and crumbly. Ulcer noted stage II on left lower leg . Wound wound healing, no sign of infection. Surrounding skin clear/intact, discoloration, and edema Head: normocephalic and atraumatic Eyes: pupils equal, round, and reactive to light, extraocular eye movements intact, conjunctivae normal ENT: tympanic membrane, external ear and ear canal normal bilaterally, nose without deformity, nasal mucosa and turbinates normal without polyps Neck: supple and non-tender without mass, no thyromegaly or thyroid nodules, no cervical lymphadenopathy Pulmonary/Chest: clear to auscultation bilaterally- no wheezes, rales or rhonchi, normal air movement, no respiratory distress Cardiovascular: normal rate, regular rhythm, normal S1 and S2, no murmurs, rubs, clicks, or gallops, distal pulses intact, no carotid bruits Abdomen: soft, non-tender, non-distended, normal bowel sounds, no masses or organomegaly Extremities: Lower extremity Pulses Normal. Edema lower extremities 2+ Musculoskeletal: +5/5 muscle strength in all quads Hammertoe contractures noted bilateral Neurologic: No cranial nerve deficit, gait, coordination and speech normal. both lower extremities diminished Wound/Incision 04/09/23 Traumatic Lower Leg Left;Proximal;Anterior (Active) Wound Image 04/30/23 1102 Site Assessment Granulation;Sloughing 04/30/23 1102 Mar-Wound Assessment Ecchymotic;Edematous 04/30/23 1102 Wound Length (cm) 2.4 cm 04/30/23 1102 Wound Width (cm) 1.1 cm 04/30/23 1102 Wound Surface Area (cm^2) 2.64 cm^2 04/30/23 1102 Wound Depth (cm) 0.1 cm 04/30/23 1102 Wound Volume (cm^3) 0.264 cm^3 04/30/23 1102 Wound Healing % 21 04/30/23 1102 Drainage Description Serosanguineous 04/30/23 1102 Odor None 04/30/23 1102 Drainage Amount Small 04/30/23 1102 Treatments Cleansed 04/30/23 1102 Primary Dressing Xeroform 04/30/23 1129 Secondary Dressing 4x4 gauze 04/30/23 1129 Secured with Kerlex 04/30/23 1129 Compression Double Layer tubigrip 04/16/23 0949 Dressing Status New dressing applied;Clean, dry & intact 04/30/23 1129 Wound Bed Granulation (%) 50 % 04/30/23 1102 Wound Bed Slough (%) 50 % 04/30/23 1102 Margins Attached edges;Well-defined edges 04/30/23 1102 Number of days: 21 LABS CBC: No results found for: WBC, HGB, HCT, MCV, PLT BMP: No results found for: NA, K, CL, CO2, PHOS, BUN, CREATININE PT/INR: No results found for: PROTIME, INR Prealbumin: No results found for: PREALBUMIN Albumin:No components found for: LABALBU Sed Rate:No results found for: SEDRATE Micro: No components found for: BC Assessment: 1. Generalized edema 2. Traumatic open wound of left lower leg, initial encounter 3. Pain in left lower leg 4. Skin ulcer of calf, left, with fat layer exposed (HCC) 5. Venous insufficiency (chronic) (peripheral) 6. Wound of left lower extremity, subsequent encounter 7. Traumatic hematoma of lower leg, left, subsequent encounter Procedure Note Indications: Based on my examination of this patient's wound(s)/ulcer(s) today, debridement is required to promote healing and evaluate the extent healing. Performed by: ABIODUN EPPS DPM Time out taken: Yes Pain control: 2% lidocaine topical jelly Debridement:Excisional Debridement Using a curette, scalpel, and/or rongeur, the wound(s)/ulcer(s) was/were sharply debrided down through Subcutaneous tissue with removal of all necrotic, fibrotic, and hyperkeratotic tissue. Pre Debridement Measurements: Are located in the Wound/Ulcer Documentation Flow Sheet Wound/Ulcer #: left lower leg Post Debridement Measurements: Wound/Ulcer Descriptions are listed under Physical Exam above. Wound/Ulcer Descriptions are Pre Debridement except measurements Percent of Wound/Ulcer Debrided: 100% Total Surface Area Debrided: 3 sq cm Bleeding: Minimal Hemostasis Achieved: pressure Procedural Pain: 3 / 10 Post Procedural Pain: 2/ 10 Response to treatment: Well tolerated by patient. Plan: Patient examined and evaluated. Patient understands all that has been explained to him and He wishes to proceed with current treatment. Patient understands all risks, benefits, procedures, mar-operative management, and possible complications. All questions answered and no guarantees made or implied. Wound Debrided: Yes Nails Debrided: No Lesions Debrided: No Antibiotics: No Discharge Treatment: Discussed appropriate home care of this wound., Dispensed dressing supplies and instructions on their use., Wound redressed. Current wound treatment: Orders Placed This Encounter Procedures Wound Care OP Follow-up 2 weeks Dressing Order: Xeroform; Daily; 4x4 gauze; Kerlex, Paper tape; Double Layer tubigrip (or compression wrap) Order Specific Question: Primary Dressing Answer: Xeroform Order Specific Question: Dressing Frequency Answer: Daily Order Specific Question: Secondary Dressing Answer: 4x4 gauze Order Specific Question: Secured With Answer: Kerlex Order Specific Question: Secured With Answer: Paper tape Order Specific Question: Compression Answer: Double Layer tubigrip Comments: or compression wrap Scheduled F/U in 1 week. Please see attached Discharge Instructions. Written patient dismissal instructions given to patient and signed by patient or POA. documented in this encounter [facility] 04-30-2023 Hospital Discharge instructions Mar Resendiz RN - 04/30/2023 11:15 AM EDT Daily dressing changes. Wash with antibacterial soap and water. Apply xeroform, dry dressing and wear tubigrip or compression wrap as much as possible. Warm compress twice a day. Avoid standing for long periods of time, Elevate legs to the level of the heart or above for 30 minutes daily and/or when sitting, a frequency of: above hip level when sitting Call for signs of infection which include increased redness, increased pain, foul drainage, wound area hot to touch, and fever. If clinic is closed go to ER. documented in this encounter [facility] 04-30-2023 Hospital Discharge instructions Mar Resendiz RN - 04/30/2023 11:15 AM EDT Daily dressing changes. Wash with antibacterial soap and water. Apply xeroform, dry dressing and wear tubigrip or compression wrap as much as possible. Warm compress twice a day. Avoid standing for long periods of time, Elevate legs to the level of the heart or above for 30 minutes daily and/or when sitting, a frequency of: above hip level when sitting Call for signs of infection which include increased redness, increased pain, foul drainage, wound area hot to touch, and fever. If clinic is closed go to ER. documented in this encounter [facility] 04-30-2023 Miscellaneous Notes Encounter addended by: Nichole Chatterjee RN on: 07/26/2023 3:49 PM Actions taken: Visit diagnoses modified documented in this encounter [facility] 04-30-2023 Note Encounter addended b y: Nichole Chatterjee RN on: 07/26/2023 3:49 PM Actions taken: Visit diagnoses modified [facility] 04-16-2023 Note [facility] [address] [facility] Progress Note and Procedure Note Marci Ferrari AGE: 82 y.o. GENDER: male : 1940 EPISODE DATE: 04/16/23 Subjective: Patient complains of a skin ulcer. The ulcer is located on the left lower leg(s). Ulcer has been present for a few weeks. Pain is rated as 3/10. Interventions to date: debridements and compression . Patient denies tobacco use. Patient denies having a history of diabetes. HISTORY of PRESENT ILLNESS HPI History of Wound Context: Venous Stasis Ulcer / Venous Insufficiency: 1.Are compression bandages and/or garments being consistently applied? Yes 2. Is elevation/ambulation being encouraged? Yes Quality of pain: aching, burning, and tingling Wound/Ulcer Pain Timing/Severity: Modifying Factors: PVD Associated Signs/Symptoms:wound drainage Interval History: Patient presents today for follow up on wound/ulcer's progression. The patient is currently not on antibiotics. Current dressing care includes xeroform, DSD, and compression. 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 Atrial fibrillation ([facility]) Atrial flutter ([facility]) 06/20/2021 Bandemia 06/20/2021 Bilateral hearing loss 06/20/2021 Bilateral inguinal hernia 03/27/2017 Cervical arthritis 06/20/2021 Diaphragmatic hernia 01/21/2006 Difficulty walking 03/11/2021 Dyspnea on exertion 06/20/2021 Edentulous 06/20/2021 Encounter for long-term (current) use of insulin ([facility]) 12/26/2010 Esophagitis 01/21/2006 Essential hypertension 12/26/2010 Full thickness rotator cuff tear 10/18/2017 History of radiofrequency ablation (RFA) for complex left atrial arrhythmia 11/03/2015 Hypercoagulable state ([facility]) 03/11/2021 Hyperlipidemia Hypertension Impingement syndrome of shoulder region 10/18/2017 Incisional hernia 07/03/2007 Leukocytosis 03/11/2021 Lower urinary tract symptoms due to benign prostatic hyperplasia 03/11/2021 Obesity with body mass index 30 or greater 06/20/2021 Obstructive sleep apnea syndrome 09/22/2013 Pelvic pain in male 06/20/2021 Pes cavus 05/15/2018 Pulmonary hypertension ([facility]) 03/11/2021 S/P CABG (coronary artery bypass graft) 06/20/2021 Senile purpura ([facility] ([facility]) 03/11/2021 Septic prepatellar bursitis 05/13/2012 Temporal arteritis ([facility]) 03/11/2021 Transient ischemic attack 11/04/2015 PAST SURGICAL HISTORY Past Surgical History: Procedure Laterality Date ABLATION OF DYSRHYTHMIC FOCUS CARDIAC SURGERY triple bypass FAMILY HISTORY No family history on file. SOCIAL HISTORY Social History Tobacco Use Smoking status: Former Smokeless tobacco: Never Substance Use Topics Alcohol use: Yes Drug use: No ALLERGIES No Known Allergies MEDICATIONS Current Outpatient Medications on File Prior to Encounter Medication Sig Dispense Refill atorvastatin (Lipitor) 20 MG tablet Take 20 mg by mouth daily. hydroCHLOROthiazide (HYDRODiuril) 25 MG tablet Take 25 mg by mouth daily. metoprolol succinate XL (Toprol-XL) 25 MG 24 hr tablet Take by mouth. Do not crush or chew. Multiple Vitamin (multivitamin) tablet Take 1 tablet by mouth daily. pantoprazole (ProtoNix) 40 MG EC tablet Take 40 mg by mouth every morning (before breakfast). Do not crush, chew, or split. ramipril (Altace) 10 MG capsule Take 10 mg by mouth 2 times daily. rivaroxaban (Xarelto) 15 MG tablet Take by mouth. Take with food. spironolactone (Aldactone) 25 MG tablet Take by mouth daily. Current Facility-Administered Medications on File Prior to Encounter Medication Dose Route Frequency Provider Last Rate Last Admin lidocaine (Xylocaine) 2 % gel Topical PRN Abiodun Epps DPM REVIEW OF SYSTEMS Pertinent items are noted in HPI. Objective: BP 126/54 Pulse 74 Temp 36.4 ?C (97.6 ?F) Resp 20 Wt Readings from Last 3 Encounters: 04/09/23 230 lb (104 kg) 10/30/21 230 lb (104 kg) 07/05/21 225 lb (102 kg) PHYSICAL EXAM General Appearance: alert and oriented to person, place and time, well developed and well- nourished, in no acute distress Skin: warm and dry, no rash. Nails are noted to be thick, yellow, and crumbly. Ulcer noted stage II on left lower leg . Wound wound healing, no sign of infection. Surrounding skin clear/intact, discoloration, and edema Head: normocephalic and atraumatic Eyes: pupils equal, round, and reactive to light, extraocular eye movements intact, conjunctivae normal ENT: tympanic membrane, external ear and ear canal normal bilaterally, nose without deformity, nasal mucosa and turbinates normal without polyps Neck: supple and non-tender without mass, no thyromegaly or thyroid nodules, no cervical lymphadenopathy Pulmonary/Chest: clear to auscultation bilaterally- no wheezes, rales or rhonchi, normal air movement, no respiratory distress Cardiovascular: normal rate, regular rhythm, normal (more content not included)... [facility] 04-16-2023 Note Encounter addended b y: Nichole Chatterjee RN on: 07/26/2023 3:50 PM Actions taken: Visit diagnoses modified [facility] 04-16-2023 History of Present illness Narrative Formatting of this note is different fro m the original. Images from the original note were not included. [facility] Progress Note and Procedure Note Marci Ferrari AGE: 82 y.o. GENDER: male : 1940 EPISODE DATE: 04/16/23 Subjective: Patient complains of a skin ulcer. The ulcer is located on the left lower leg(s). Ulcer has been present for a few weeks. Pain is rated as 3/10. Interventions to date: debridements and compression . Patient denies tobacco use. Patient denies having a history of diabetes. HISTORY of PRESENT ILLNESS HPI History of Wound Context: Venous Stasis Ulcer / Venous Insufficiency: 1.Are compression bandages and/or garments being consistently applied? Yes 2. Is elevation/ambulation being encouraged? Yes Quality of pain: aching, burning, and tingling Wound/Ulcer Pain Timing/Severity: Modifying Factors: PVD Associated Signs/Symptoms:wound drainage Interval History: Patient presents today for follow up on wound/ulcer's progression. The patient is currently not on antibiotics. Current dressing care includes xeroform, DSD, and compression. 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 Atrial fibrillation ([facility] Atrial flutter ([facility]) 06/20/2021 Bandemia 06/20/2021 Bilateral hearing loss 06/20/2021 Bilateral inguinal hernia 03/27/2017 Cervical arthritis 06/20/2021 Diaphragmatic hernia 01/21/2006 Difficulty walking 03/11/2021 Dyspnea on exertion 06/20/2021 Edentulous 06/20/2021 Encounter for long-term (current) use of insulin ([facility]) 12/26/2010 Esophagitis 01/21/2006 Essential hypertension 12/26/2010 Full thickness rotator cuff tear 10/18/2017 History of radiofrequency ablation (RFA) for complex left atrial arrhythmia 11/03/2015 Hypercoagulable state (HCC) 03/11/2021 Hyperlipidemia Hypertension Impingement syndrome of shoulder region 10/18/2017 Incisional hernia 07/03/2007 Leukocytosis 03/11/2021 Lower urinary tract symptoms due to benign prostatic hyperplasia 03/11/2021 Obesity with body mass index 30 or greater 06/20/2021 Obstructive sleep apnea syndrome 09/22/2013 Pelvic pain in male 06/20/2021 Pes cavus 05/15/2018 Pulmonary hypertension ([facility]) 03/11/2021 S/P CABG (coronary artery bypass graft) 06/20/2021 Senile purpura ([facility]) [facility]) 03/11/2021 Septic prepatellar bursitis 05/13/2012 Temporal arteritis ([facility]) 03/11/2021 Transient ischemic attack 11/04/2015 PAST SURGICAL HISTORY Past Surgical History: Procedure Laterality Date ABLATION OF DYSRHYTHMIC FOCUS CARDIAC SURGERY triple bypass FAMILY HISTORY No family history on file. SOCIAL HISTORY Social History Tobacco Use Smoking status: Former Smokeless tobacco: Never Substance Use Topics Alcohol use: Yes Drug use: No ALLERGIES No Known Allergies MEDICATIONS Current Outpatient Medications on File Prior to Encounter Medication Sig Dispense Refill atorvastatin (Lipitor) 20 MG tablet Take 20 mg by mouth daily. hydroCHLOROthiazide (HYDRODiuril) 25 MG tablet Take 25 mg by mouth daily. metoprolol succinate XL (Toprol-XL) 25 MG 24 hr tablet Take by mouth. Do not crush or chew. Multiple Vitamin (multivitamin) tablet Take 1 tablet by mouth daily. pantoprazole (ProtoNix) 40 MG EC tablet Take 40 mg by mouth every morning (before breakfast). Do not crush, chew, or split. ramipril (Altace) 10 MG capsule Take 10 mg by mouth 2 times daily. rivaroxaban (Xarelto) 15 MG tablet Take by mouth. Take with food. spironolactone (Aldactone) 25 MG tablet Take by mouth daily. Current Facility-Administered Medications on File Prior to Encounter Medication Dose Route Frequency Provider Last Rate Last Admin lidocaine (Xylocaine) 2 % gel Topical PRN Abiodun Epps DPM REVIEW OF SYSTEMS Pertinent items are noted in HPI. Objective: BP 126/54 Pulse 74 Temp 36.4 C (97.6 F) Resp 20 Wt Readings from Last 3 Encounters: 04/09/23 230 lb (104 kg) 10/30/21 230 lb (104 kg) 07/05/21 225 lb (102 kg) PHYSICAL EXAM General Appearance: alert and oriented to person, place and time, well developed and well- nourished, in no acute distress Skin: warm and dry, no rash. Nails are noted to be thick, yellow, and crumbly. Ulcer noted stage II on left lower leg . Wound wound healing, no sign of infection. Surrounding skin clear/intact, discoloration, and edema Head: normocephalic and atraumatic Eyes: pupils equal, round, and reactive to light, extraocular eye movements intact, conjunctivae normal ENT: tympanic membrane, external ear and ear canal normal bilaterally, nose without deformity, nasal mucosa and turbinates normal without polyps Neck: supple and non-tender without mass, no thyromegaly or thyroid nodules, no cervical lymphadenopathy Pulmonary/Chest: clear to auscultation bilaterally- no wheezes, rales or rhonchi, normal air movement, no respiratory distress Cardiovascular: normal rate, regular rhythm, normal S1 and S2, no murmurs, rubs, clicks, or gallops, distal pulses intact, no carotid bruits Abdomen: soft, non-tender, non-distended, normal bowel sounds, no masses or organomegaly Extremities: Lower extremity Pulses palpable pedal pulses noted bilateral with CFT < 4 secs . Edema lower extremities 2+ Musculoskeletal: +5/5 muscle strength in all quads Hammertoe contractures noted bilateral Neurologic: No cranial nerve deficit, gait, coordination and speech normal. both lower extremities diminished Wound/Incision 04/09/23 Traumatic Lower Leg Left;Proximal;Anterior (Active) Wound Image 04/16/23 08 Site Assessment Granulation;Sloughing 04/16/23858 Mar-Wound Assessment Blanchable erythema;Edematous 04/16/23 08 Wound Length (cm) 2.7 cm 04/16/23 08 Wound Width (cm) 1.2 cm 04/16/23 08 Wound Surface Area (cm^2) 3.24 cm^2 04/16/23 08 Wound Depth (cm) 0.1 cm 04/16/23 08 Wound Volume (cm^3) 0.324 cm^3 04/16/23 08 Wound Healing % 4 04/16/23858 Drainage Description Serosanguineous 04/16/23858 Odor None 04/16/23858 Drainage Amount Small 04/16/23858 Treatments Cleansed;Pharmaceutical agent 04/16/23858 Primary Dressing Xeroform 04/16/23948 Secondary Dressing 4x4 gauze;ABD 04/16/23948 Secured with Kerlex;Surgical tape 04/16/23948 Compression Double Layer tubigrip 04/16/23948 Dressing Status New dressing applied;Clean, dry & intact 04/16/23948 Wound Bed Granulation (%) 50 % 04/16/23858 Wound Bed Slough (%) 50 % 04/16/23858 Number of days: 7 LABS CBC: No results found for: WBC, HGB, HCT, MCV, PLT BMP: No results found for: NA, K, CL, CO2, PHOS, BUN, CREATININE PT/INR: No results found for: PROTIME, INR Prealbumin: No results found for: PREALBUMIN Albumin:No components found for: LABALBU Sed Rate:No results found for: SEDRATE Micro: No components found for: BC Assessment: 1. Generalized edema 2. Traumatic open wound of left lower leg, initial encounter 3. Pain in left lower leg 4. Skin ulcer of calf, left, with fat layer exposed (HCC) 5. Venous insufficiency (chronic) (peripheral) 6. Hematoma of left lower extremity, initial encounter 7. Wound of left lower extremity, subsequent encounter Procedure Note Indications: Based on my examination of this patient's wound(s)/ulcer(s) today, debridement is required to promote healing and evaluate the extent healing. Performed by: ABIODUN EPPS DPM Time out taken: Yes Pain control: 2% lidocaine topical jelly Debridement:Excisional Debridement Using a curette, scalpel, and/or rongeur, the wound(s)/ulcer(s) was/were sharply debrided down through Subcutaneous tissue with removal of all necrotic, fibrotic, and hyperkeratotic tissue. Pre Debridement Measurements: Are located in the Wound/Ulcer Documentation Flow Sheet Wound/Ulcer #: left lower extremity Post Debridement Measurements: Wound/Ulcer Descriptions are listed under Physical Exam above. Wound/Ulcer Descriptions are Pre Debridement except measurements Percent of Wound/Ulcer Debrided: 100% Total Surface Area Debrided: 3 sq cm Bleeding: Minimal Hemostasis Achieved: pressure Procedural Pain: 3 / 10 Post Procedural Pain: 1/ 10 Response to treatment: Well tolerated by patient. Plan: Patient examined and evaluated. Patient understands all that has been explained to him and He wishes to proceed with current treatment. Patient understands all risks, benefits, procedures, mar-operative management, and possible complications. All questions answered and no guarantees made or implied. Wound Debrided: Yes Nails Debrided: No Lesions Debrided: No Antibiotics: No Discharge Treatment: Discussed appropriate home care of this wound., Dispensed dressing supplies and instructions on their use., Wound redressed. Current wound treatment: Orders Placed This Encounter Procedures Wound Care OP Follow-up 2 weeks Dressing Order: Xeroform; Daily; 4x4 gauze; Kerlex, Paper tape; Double Layer tubigrip Order Specific Question: Primary Dressing Answer: Xeroform Order Specific Question: Dressing Frequency Answer: Daily Order Specific Question: Secondary Dressing Answer: 4x4 gauze Order Specific Question: Secured With Answer: Kerlex Order Specific Question: Secured With Answer: Paper tape Order Specific Question: Compression Answer: Double Layer tubigrip Scheduled F/U in 1 week. Please see attached Discharge Instructions. Written patient dismissal instructions given to patient and signed by patient or POA. documented in this encounter [facility] 04-16-2023 History of Present illness Narrative Formatting of this note is different fro m the original. Images from the original note were not included. [facility] Progress Note and Procedure Note Marci Ferrari AGE: 82 y.o. GENDER: male : 1940 EPISODE DATE: 04/16/23 Subjective: Patient complains of a skin ulcer. The ulcer is located on the left lower leg(s). Ulcer has been present for a few weeks. Pain is rated as 3/10. Interventions to date: debridements and compression . Patient denies tobacco use. Patient denies having a history of diabetes. HISTORY of PRESENT ILLNESS HPI History of Wound Context: Venous Stasis Ulcer / Venous Insufficiency: 1.Are compression bandages and/or garments being consistently applied? Yes 2. Is elevation/ambulation being encouraged? Yes Quality of pain: aching, burning, and tingling Wound/Ulcer Pain Timing/Severity: Modifying Factors: PVD Associated Signs/Symptoms:wound drainage Interval History: Patient presents today for follow up on wound/ulcer's progression. The patient is currently not on antibiotics. Current dressing care includes xeroform, DSD, and compression. 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 Atrial fibrillation ([facility]) Atrial flutter ([facility]) 06/20/2021 Bandemia 06/20/2021 Bilateral hearing loss 06/20/2021 Bilateral inguinal hernia 03/27/2017 Cervical arthritis 06/20/2021 Diaphragmatic hernia 01/21/2006 Difficulty walking 03/11/2021 Dyspnea on exertion 06/20/2021 Edentulous 06/20/2021 Encounter for long-term (current) use of insulin ([facility]) 12/26/2010 Esophagitis 01/21/2006 Essential hypertension 12/26/2010 Full thickness rotator cuff tear 10/18/2017 History of radiofrequency ablation (RFA) for complex left atrial arrhythmia 11/03/2015 Hypercoagulable state ([facility]) 03/11/2021 Hyperlipidemia Hypertension Impingement syndrome of shoulder region 10/18/2017 Incisional hernia 07/03/2007 Leukocytosis 03/11/2021 Lower urinary tract symptoms due to benign prostatic hyperplasia 03/11/2021 Obesity with body mass index 30 or greater 06/20/2021 Obstructive sleep apnea syndrome 09/22/2013 Pelvic pain in male 06/20/2021 Pes cavus 05/15/2018 Pulmonary hypertension ([facility]) 03/11/2021 S/P CABG (coronary artery bypass graft) 06/20/2021 Senile purpura ([facility]) 03/11/2021 Septic prepatellar bursitis 05/13/2012 Temporal arteritis ([facility]) 03/11/2021 Transient ischemic attack 11/04/2015 PAST SURGICAL HISTORY Past Surgical History: Procedure Laterality Date ABLATION OF DYSRHYTHMIC FOCUS CARDIAC SURGERY triple bypass FAMILY HISTORY No family history on file. SOCIAL HISTORY Social History Tobacco Use Smoking status: Former Smokeless tobacco: Never Substance Use Topics Alcohol use: Yes Drug use: No ALLERGIES No Known Allergies MEDICATIONS Current Outpatient Medications on File Prior to Encounter Medication Sig Dispense Refill atorvastatin (Lipitor) 20 MG tablet Take 20 mg by mouth daily. hydroCHLOROthiazide (HYDRODiuril) 25 MG tablet Take 25 mg by mouth daily. metoprolol succinate XL (Toprol-XL) 25 MG 24 hr tablet Take by mouth. Do not crush or chew. Multiple Vitamin (multivitamin) tablet Take 1 tablet by mouth daily. pantoprazole (ProtoNix) 40 MG EC tablet Take 40 mg by mouth every morning (before breakfast). Do not crush, chew, or split. ramipril (Altace) 10 MG capsule Take 10 mg by mouth 2 times daily. rivaroxaban (Xarelto) 15 MG tablet Take by mouth. Take with food. spironolactone (Aldactone) 25 MG tablet Take by mouth daily. Current Facility-Administered Medications on File Prior to Encounter Medication Dose Route Frequency Provider Last Rate Last Admin lidocaine (Xylocaine) 2 % gel Topical PRN Abiodun Epps DPM REVIEW OF SYSTEMS Pertinent items are noted in HPI. Objective: BP 126/54 Pulse 74 Temp 36.4 C (97.6 F) Resp 20 Wt Readings from Last 3 Encounters: 04/09/23 230 lb (104 kg) 10/30/21 230 lb (104 kg) 07/05/21 225 lb (102 kg) PHYSICAL EXAM General Appearance: alert and oriented to person, place and time, well developed and well- nourished, in no acute distress Skin: warm and dry, no rash. Nails are noted to be thick, yellow, and crumbly. Ulcer noted stage II on left lower leg . Wound wound healing, no sign of infection. Surrounding skin clear/intact, discoloration, and edema Head: normocephalic and atraumatic Eyes: pupils equal, round, and reactive to light, extraocular eye movements intact, conjunctivae normal ENT: tympanic membrane, external ear and ear canal normal bilaterally, nose without deformity, nasal mucosa and turbinates normal without polyps Neck: supple and non-tender without mass, no thyromegaly or thyroid nodules, no cervical lymphadenopathy Pulmonary/Chest: clear to auscultation bilaterally- no wheezes, rales or rhonchi, normal air movement, no respiratory distress Cardiovascular: normal rate, regular rhythm, normal S1 and S2, no murmurs, rubs, clicks, or gallops, distal pulses intact, no carotid bruits Abdomen: soft, non-tender, non-distended, normal bowel sounds, no masses or organomegaly Extremities: Lower extremity Pulses palpable pedal pulses noted bilateral with CFT < 4 secs . Edema lower extremities 2+ Musculoskeletal: +5/5 muscle strength in all quads Hammertoe contractures noted bilateral Neurologic: No cranial nerve deficit, gait, coordination and speech normal. both lower extremities diminished Wound/Incision 04/09/23 Traumatic Lower Leg Left;Proximal;Anterior (Active) Wound Image 04/16/23858 Site Assessment Granulation;Sloughing 04/16/23858 Mar-Wound Assessment Blanchable erythema;Edematous 04/16/23858 Wound Length (cm) 2.7 cm 04/16/23858 Wound Width (cm) 1.2 cm 04/16/23858 Wound Surface Area (cm^2) 3.24 cm^2 04/16/23858 Wound Depth (cm) 0.1 cm 04/16/23858 Wound Volume (cm^3) 0.324 cm^3 04/16/23858 Wound Healing % 4 04/16/23858 Drainage Description Serosanguineous 04/16/23858 Odor None 04/16/23858 Drainage Amount Small 04/16/23858 Treatments Cleansed;Pharmaceutical agent 04/16/23858 Primary Dressing Xeroform 04/16/23948 Secondary Dressing 4x4 gauze;ABD 04/16/23948 Secured with Kerlex;Surgical tape 04/16/23948 Compression Double Layer tubigrip 04/16/23948 Dressing Status New dressing applied;Clean, dry & intact 04/16/23948 Wound Bed Granulation (%) 50 % 04/16/23858 Wound Bed Slough (%) 50 % 04/16/23858 Number of days: 7 LABS CBC: No results found for: WBC, HGB, HCT, MCV, PLT BMP: No results found for: NA, K, CL, CO2, PHOS, BUN, CREATININE PT/INR: No results found for: PROTIME, INR Prealbumin: No results found for: PREALBUMIN Albumin:No components found for: LABALBU Sed Rate:No results found for: SEDRATE Micro: No components found for: BC Assessment: 1. Generalized edema 2. Traumatic open wound of left lower leg, initial encounter 3. Pain in left lower leg 4. Skin ulcer of calf, left, with fat layer exposed (HCC) 5. Venous insufficiency (chronic) (peripheral) 6. Hematoma of left lower extremity, initial encounter 7. Wound of left lower extremity, subsequent encounter Procedure Note Indications: Based on my examination of this patient's wound(s)/ulcer(s) today, debridement is required to promote healing and evaluate the extent healing. Performed by: ABIODUN EPPS DPM Time out taken: Yes Pain control: 2% lidocaine topical jelly Debridement:Excisional Debridement Using a curette, scalpel, and/or rongeur, the wound(s)/ulcer(s) was/were sharply debrided down through Subcutaneous tissue with removal of all necrotic, fibrotic, and hyperkeratotic tissue. Pre Debridement Measurements: Are located in the Wound/Ulcer Documentation Flow Sheet Wound/Ulcer #: left lower extremity Post Debridement Measurements: Wound/Ulcer Descriptions are listed under Physical Exam above. Wound/Ulcer Descriptions are Pre Debridement except measurements Percent of Wound/Ulcer Debrided: 100% Total Surface Area Debrided: 3 sq cm Bleeding: Minimal Hemostasis Achieved: pressure Procedural Pain: 3 / 10 Post Procedural Pain: 1/ 10 Response to treatment: Well tolerated by patient. Plan: Patient examined and evaluated. Patient understands all that has been explained to him and He wishes to proceed with current treatment. Patient understands all risks, benefits, procedures, mar-operative management, and possible complications. All questions answered and no guarantees made or implied. Wound Debrided: Yes Nails Debrided: No Lesions Debrided: No Antibiotics: No Discharge Treatment: Discussed appropriate home care of this wound., Dispensed dressing supplies and instructions on their use., Wound redressed. Current wound treatment: Orders Placed This Encounter Procedures Wound Care OP Follow-up 2 weeks Dressing Order: Xeroform; Daily; 4x4 gauze; Kerlex, Paper tape; Double Layer tubigrip Order Specific Question: Primary Dressing Answer: Xeroform Order Specific Question: Dressing Frequency Answer: Daily Order Specific Question: Secondary Dressing Answer: 4x4 gauze Order Specific Question: Secured With Answer: Kerlex Order Specific Question: Secured With Answer: Paper tape Order Specific Question: Compression Answer: Double Layer tubigrip Scheduled F/U in 1 week. Please see attached Discharge Instructions. Written patient dismissal instructions given to patient and signed by patient or POA. documented in this encounter [facility] 04-16-2023 Hospital Discharge instructions Mar Resendiz RN - 04/16/2023 8:45 AM EDT Daily dressing changes. Wash with antibacterial soap and water. Apply xeroform, dry dressing and wear tubigrip as much as possible. Warm compress twice a day. Avoid standing for long periods of time, Elevate legs to the level of the heart or above for 30 minutes daily and/or when sitting, a frequency of: above hip level when sitting Call for signs of infection which include increased redness, increased pain, foul drainage, wound area hot to touch, and fever. If clinic is closed go to ER. documented in this encounter [facility] 04-16-2023 Hospital Discharge instructions Mar Resendiz RN - 04/16/2023 8:45 AM EDT Daily dressing changes. Wash with antibacterial soap and water. Apply xeroform, dry dressing and wear tubigrip as much as possible. Warm compress twice a day. Avoid standing for long periods of time, Elevate legs to the level of the heart or above for 30 minutes daily and/or when sitting, a frequency of: above hip level when sitting Call for signs of infection which include increased redness, increased pain, foul drainage, wound area hot to touch, and fever. If clinic is closed go to ER. documented in this encounter [facility] 04-16-2023 Miscellaneous Notes Encounter addended by: Nichole Chatterjee RN on: 07/26/2023 3:50 PM Actions taken: Visit diagnoses modified documented in this encounter [facility] 04-16-2023 Note Encounter addended b y: Nichole Chatterjee RN on: 07/26/2023 3:50 PM Actions taken: Visit diagnoses modified [facility] 04-09-2023 Note [facility] Progress Note and Procedure Note Marci Ferrari AGE: 82 y.o. GENDER: male : 1940 EPISODE DATE: 04/09/23 Subjective: This is patient's initial exam. Patient complains of a skin ulcer. The ulcer is located on the left lower leg(s). Ulcer has been present for a few weeks. Pain is rated as 3/10. Interventions to date: dressing changes . Patient denies tobacco use. Patient denies having a history of diabetes. HISTORY of PRESENT ILLNESS HPI History of Wound Context: Venous Stasis Ulcer / Venous Insufficiency: 1.Are compression bandages and/or garments being consistently applied? Yes 2. Is elevation/ambulation being encouraged? Yes Quality of pain: aching, burning, sharp, stabbing, and tingling Wound/Ulcer Pain Timing/Severity: 3 / 10 Modifying Factors: PVD Associated Signs/Symptoms:wound drainage Interval History: Patient presents today for follow up on wound/ulcer's progression. The patient is currently on antibiotics. Current dressing care includes DSD. 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 Atrial fibrillation (CMS/HCC) ([facility]) Atrial flutter ([facility]) 06/20/2021 Bandemia 06/20/2021 Bilateral hearing loss 06/20/2021 Bilateral inguinal hernia 03/27/2017 Cervical arthritis 06/20/2021 Diaphragmatic hernia 01/21/2006 Difficulty walking 03/11/2021 Dyspnea on exertion 06/20/2021 Edentulous 06/20/2021 Encounter for long-term (current) use of insulin (CMS/HCC) ([facility]) 12/26/2010 Esophagitis 01/21/2006 Essential hypertension 12/26/2010 Full thickness rotator cuff tear 10/18/2017 History of radiofrequency ablation (RFA) for complex left atrial arrhythmia 11/03/2015 Hypercoagulable state (HCC) 03/11/2021 Hyperlipidemia Hypertension Impingement syndrome of shoulder region 10/18/2017 Incisional hernia 07/03/2007 Leukocytosis 03/11/2021 Lower urinary tract symptoms due to benign prostatic hyperplasia 03/11/2021 Obesity with body mass index 30 or greater 06/20/2021 Obstructive sleep apnea syndrome 09/22/2013 Pelvic pain in male 06/20/2021 Pes cavus 05/15/2018 Pulmonary hypertension ([facility]) 03/11/2021 S/P CABG (coronary artery bypass graft) 06/20/2021 Senile purpura (CMS/HCC) ([facility]) 03/11/2021 Septic prepatellar bursitis 05/13/2012 Temporal arteritis ([facility]/HCC) ([facility]) 03/11/2021 Transient ischemic attack 11/04/2015 PAST SURGICAL HISTORY Past Surgical History: Procedure Laterality Date ABLATION OF DYSRHYTHMIC FOCUS CARDIAC SURGERY triple bypass FAMILY HISTORY No family history on file. SOCIAL HISTORY Social History Tobacco Use Smoking status: Former Smokeless tobacco: Never Substance Use Topics Alcohol use: Yes Drug use: No ALLERGIES No Known Allergies MEDICATIONS Current Outpatient Medications on File Prior to Encounter Medication Sig Dispense Refill atorvastatin (Lipitor) 20 MG tablet Take 20 mg by mouth daily. hydroCHLOROthiazide (HYDRODiuril) 25 MG tablet Take 25 mg by mouth daily. metoprolol succinate XL (Toprol-XL) 25 MG 24 hr tablet Take by mouth. Do not crush or chew. Multiple Vitamin (multivitamin) tablet Take 1 tablet by mouth daily. pantoprazole (ProtoNix) 40 MG EC tablet Take 40 mg by mouth every morning (before breakfast). Do not crush, chew, or split. ramipril (Altace) 10 MG capsule Take 10 mg by mouth 2 times daily. rivaroxaban (Xarelto) 15 MG tablet Take by mouth. Take with food. spironolactone (Aldactone) 25 MG tablet Take by mouth daily. No current facility-administered medications on file prior to encounter. REVIEW OF SYSTEMS Pertinent items are noted in HPI. Objective: BP 112/56 Pulse 55 Temp 36.1 ?C (97 ?F) Resp 20 Ht 5' 11 (1.803 m) Wt 230 lb (104 kg) BMI 32.08 kg/m? Wt Readings from Last 3 Encounters: 04/09/23 230 lb (104 kg) 10/30/21 230 lb (104 kg) 07/05/21 225 lb (102 kg) PHYSICAL EXAM General Appearance: alert and oriented to person, place and time, well developed and well- nourished, in no acute distress Skin: warm and dry, no rash. Nails are noted to be thick, yellow, and crumbly. Ulcer noted stage II on left lower extremity . Wound wound healing, no sign of infection. Surrounding skin clear/intact, erythema, and edema Head: normocephalic and atraumatic Eyes: pupils equal, round, and reactive to light, extraocular eye movements intact, conjunctivae normal ENT: tympanic membrane, external ear and ear canal normal bilaterally, nose without deformity, nasal mucosa and turbinates normal without polyps Neck: supple and non-tender without mass, no thyromegaly or thyroid nodules, no cervical lymphadenopathy Pulmonary/Chest: clear to auscultation bilaterally- no wheezes, rales or rhonchi, normal air movement, no respiratory distress Cardiovascular: normal rate, regular rhythm, normal S1 and S2, no murmurs, rubs, clicks, or gallops, distal p (more content not included)... [facility] 04-05-2023 Emergency department Note Formatting of this note might be differe nt from the original. Report to Teressa Green RN 04/05/231918 [facility] 04-05-2023 Emergency department Note Formatting of this note might be differe nt from the original. Report to Teressa Green RN 04/05/231918 Guided daughter back JOSE Avendaño 04/05/23 1600 Emergency Department Encounter [facility] ED Patient: Marci Ferrari : 1940 Date of Evaluation: 04/05/2023 ED Supervising Physician: MARCI MCDUFFIE MD I independently examined and evaluated Marci Ferrari. This will serve as my Supervisory note and shared attestation. I did perform a substantive portion of the visit including all aspects of the Medical Decision Making. I wore appropriate PPE for the entirety of this encounter. History: In brief, Marci Ferrari is a 82 y.o. male that presents to the emergency department planing of an injury to his left leg. This occurred 1-1/2 weeks ago. He is on Xarelto for atrial fibrillation. He was sent here for evaluation because of the degree of swelling to the left leg. Focused exam: On examination the patient has a large hematoma at the junction of the middle and proximal thirds of the left leg anteriorly. There is an area of skin breakdown. The entire area is ecchymosis. He also has ecchymosis extending into his left ankle and foot. Neurovascular status is intact distally. Differential Diagnosis: Differential diagnosis includes resolving hematoma, infected hematoma. At this time the area is not warm to touch. He is afebrile. I do not believe that this represents an infected hematoma. ED testing and evaluation will be obtained to help differentiate these diagnostic possibilities and determine the most likely cause. Diagnostic testing undertaken, as well as those tests considered but not ordered: X-ray examination demonstrates no evidence of bony abnormality. Hemoglobin is within normal limits. Brief ED course/MDM: In the emergency department the patient was initially evaluated with a history and physical examination. Further diagnostic testing and therapeutic care was based on this initial assessment. In the emergency department the patient has been given reassurance. An Obie wrap is applied to the hematoma. He is encouraged to use his cane. Sources of History: I evaluated other historical sources including previous outpatient records and admission records. Patient is aware of care plan. All diagnostic, treatment, and disposition decisions were made by myself in conjunction with the [facility]. For all further details of the patient's emergency department visit, please see their documentation. (Comment: Please note this report has been produced using speech recognition software and may contain errors related to that system including errors in grammar, punctuation, and spelling, as well as words and phrases that may be inappropriate. If there are any questions or concerns please feel free to contact the dictating provider for clarification.) MARCI MCDUFFIE MD [employer] Marci Mcduffie MD 04/05/23 1642 [facility] ED eMERGENCY dEPARTMENT eNCOUnter Pt Name: Mraci Ferrari Birthdate 1940 Date of evaluation: 04/05/2023 Provider: AURELIA TAYLOR CHIEF COMPLAINT Chief Complaint Patient presents with Leg Pain PT presents to ED for possible infection in a wound on his L leg. Pt states he fell onto his leg last week on Saturday. Pt has swelling and redness around wound. HISTORY OF PRESENT ILLNESS (Location/Symptom, Timing/Onset,Context/Setting, Quality, Duration, Modifying Factors, Severity) Note limiting factors. HPI This patient is seen in conjunction with Dr. Mcduffie who also interviewed and evaluated the patient at bedside. Marci Ferrari is a 82 y.o. male who presents to the emergency department complaining of an ongoing wound to the left dave from a fall 2 weeks ago in the garage. Patient states he missed stepped and either hit the concrete floor the bumper of the car. He is scheduled to see the wound care center for the first time this upcoming Saturday. He did see the family physician and was started on a prescription of Keflex. Nursing Notes were reviewed. REVIEW OF SYSTEMS (2+ for4; 10+ for level 5) Review of Systems Constitutional: Negative for chills and fever. HENT: Negative for ear pain and sore throat. Eyes: Negative for pain and visual disturbance. Respiratory: Negative for cough and shortness of breath. Cardiovascular: Negative for chest pain and palpitations. Gastrointestinal: Negative for abdominal pain and vomiting. Genitourinary: Negative for dysuria and hematuria. Musculoskeletal: Negative for arthralgias and back pain. See history of present illness. Skin: Negative for color change and rash. Neurological: Negative for seizures and syncope. All other systems reviewed and are negative. 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 Atrial fibrillation (CMS/HCC) Atrial flutter ([facility]) 06/20/2021 Bandemia 06/20/2021 Bilateral hearing loss 06/20/2021 Bilateral inguinal hernia 03/27/2017 Cervical arthritis 06/20/2021 Diaphragmatic hernia 01/21/2006 Difficulty walking 03/11/2021 Dyspnea on exertion 06/20/2021 Edentulous 06/20/2021 Encounter for long-term (current) use of insulin ([facility]) 12/26/2010 Esophagitis 01/21/2006 Essential hypertension 12/26/2010 Full thickness rotator cuff tear 10/18/2017 History of radiofrequency ablation (RFA) for complex left atrial arrhythmia 11/03/2015 Hypercoagulable state ([facility]) 03/11/2021 Hyperlipidemia Hypertension Impingement syndrome of shoulder region 10/18/2017 Incisional hernia 07/03/2007 Leukocytosis 03/11/2021 Lower urinary tract symptoms due to benign prostatic hyperplasia 03/11/2021 Obesity with body mass index 30 or greater 06/20/2021 Obstructive sleep apnea syndrome 09/22/2013 Pelvic pain in male 06/20/2021 Pes cavus 05/15/2018 Pulmonary hypertension ([facility]) 03/11/2021 S/P CABG (coronary artery bypass graft) 06/20/2021 Senile purpura ([facility]) 03/11/2021 Septic prepatellar bursitis 05/13/2012 Temporal arteritis ([facility]) 03/11/2021 Transient ischemic attack 11/04/2015 SURGICALHISTORY Past Surgical History: Procedure Laterality Date ABLATION OF DYSRHYTHMIC FOCUS CARDIAC SURGERY triple bypass CURRENT MEDICATIONS Previous Medications No medications on file Patient has no known allergies. FAMILY HISTORY No family history on file. SOCIAL HISTORY Social History Socioeconomic History Marital status: Tobacco Use Smoking status: Former Smokeless tobacco: Never Substance and Sexual Activity Alcohol use: Yes Drug use: No SCREENINGS PHYSICAL EXAM (5+ for level 4, 8+ for level 5) @EDTRIAGEVSS@ Physical Exam Vitals and nursing note reviewed. Constitutional: General: He is not in acute distress. Appearance: Normal appearance. He is well-developed. HENT: Head: Normocephalic and atraumatic. Eyes: Conjunctiva/sclera: Conjunctivae normal. Cardiovascular: Rate and Rhythm: Normal rate and regular rhythm. Heart sounds: No murmur heard. Pulmonary: Effort: Pulmonary effort is normal. No respiratory distress. Breath sounds: Normal breath sounds. Musculoskeletal: General: No swelling. Comments: Patient has a superficial abrasion measuring approximately the size of $0.50 piece to the proximal anterior midline dave with surrounding hematoma and old ecchymosis that extends down into the ankle. Dorsalis pedis pulse is easily appreciated. Distal sensory innervation is intact. No open lesion or drainage. Skin: General: Skin is warm and dry. Neurological: Mental Status: He is alert and oriented to person, place, and time. Psychiatric: Mood and Affect: Mood normal. Behavior: Behavior normal. DIAGNOSTIC RESULTS EKG (Per Emergency Physician): RADIOLOGY (Per EmergencyPhysician): Interpretation per the Radiologist below, if available at the time of this note: @EDRISRSLT@ : Labs Reviewed CBC WITH AUTO DIFFERENTIAL - Abnormal Result Value Auto WBC 10.7 RBC 3.99 (*) Hemoglobin 11.7 (*) Hematocrit 35.3 (*) MCV 88.6 MCH 29.4 MCHC 33.2 RDW 16.1 (*) Platelets 252 MPV 9.2 nRBC 0.0 Neutrophils Relative 72.1 Lymphocytes Relative 12.7 (*) Monocytes Relative 11.9 (*) Eosinophils Relative 2.7 Basophils Relative 0.6 Neutrophils Absolute 7.7 (*) Lymphocytes Absolute 1.4 Monocytes Absolute 1.3 (*) Eosinophils Absolute 0.3 Basophils Absolute 0.1 COMPREHENSIVE METABOLIC PANEL - Abnormal SODIUM 135 POTASSIUM 4.6 CHLORIDE 105 CARBON DIOXIDE 23 ANION GAP 7 UREA NITROGEN 39 (*) CREATININE 1.53 (*) GLUCOSE 102 (*) CALCIUM 8.7 AST (SGOT) 42 ALT 20 ALKALINE PHOSPHATASE 87 ALBUMIN 4.0 BILIRUBIN, TOTAL 0.5 TOTAL PROTEIN 6.9 eGFR 44.8 (*) All other labs were within normal range or not returned as of this dictation. EMERGENCY DEPARTMENT COURSE and DIFFERENTIALDIAGNOSIS/MDM: Vitals: Vitals: 04/05/23 1444 04/05/23 1625 BP: (!) 142/70 132/68 BP Location: Left arm Patient Position: Lying Pulse: 72 71 Resp: 12 16 Temp: 36.4 C (97.6 F) TempSrc: Temporal SpO2: 97% 99% Medications vancomycin (Vancocin) 2000 mg in 0.9% sodium chloride 500 mL IVPB (compounded premix) (2,000 mg IntraVENous New Bag 04/05/23 5586) Medical Decision Making Problems Addressed: Encounter for post-traumatic wound check: complicated acute illness or injury Hematoma: complicated acute illness or injury Amount and/or Complexity of Data Reviewed Labs: ordered. Radiology: ordered. Patient presents to the emergency department complaining of a left dave wound from a fall 2 weeks ago in the garage. Patient states he either hit the cement floor or the bumper of the car, he is not sure. He was seen by his primary care physician a week ago and got set up with follow-up care with the wound care center here at [facility] but was also started on on a prescription for Keflex over concern of early infection. Differential diagnosis includes contusion of the leg, hematoma, seroma, tibial plateau fracture, tibia fracture, sprain Chronic conditions impacting care: None Social determinants affecting health: Alcohol use. Former history of smoking. ED diagnostics included an x-ray of the left hip. Per my review interpretation and radiology confirmation, no acute findings were made. Patient also had basic laboratory studies including a CBC with a white count of 10.7, no shift. Hemoglobin 11.7. CMP was also obtained and reviewed. Patient be placed in an Obie wrap. He is advised to use his cane at home. He can apply warm compresses to the area. He can finish his antibiotics. He is to follow-up with the wound care center on Saturday as planned. He can return should signs and symptoms worsen in any way or any other concerns develop. The patient was given home-going instructions on hematomas. Patient expressed an understanding of verbal instruction and had no further questions at the time of discharge. CONSULTS: None PROCEDURES: Unless otherwise noted below, none Procedures Patients symptoms are consistent with sepsis, severe sepsis, or septic shock (If yes use .sepsiscoremeasure ): No FINAL IMPRESSION 1. Hematoma 2. Encounter for post-traumatic wound check DISPOSITION/PLAN DISPOSITION Discharge 04/05/2023 05:00:27 PM PATIENT REFERRED TO: Wound Care Center Saturday as planned DISCHARGE MEDICATIONS: New Prescriptions No medications on file @[facility]([id number]:LAST:1)@ (Please note: Portions of this note were completed with a voice recognition program. Efforts were made to edit thedictations but occasionally words and phrases are mis-transcribed.) Form [id number] AURELIA TAYLOR (electronically signed) Emergency Medicine Provider AURELIA Taylor 04/05/23 1654 AURELIA Taylor 04/05/23 1734 documented in this encounter [facility] 04-05-2023 Emergency department Note Formatting of this note might be differe nt from the original. Guided daughter back JOSE Avendaño 04/05/23 1600 [facility] 04-05-2023 Physician Emergency department Note Formatting of this note might be differe nt from the original. Emergency Department Encounter [facility] ED Patient: Marci Ferrari : 1940 Date of Evaluation: 04/05/2023 ED Supervising Physician: MARCI MCDUFFIE MD I independently examined and evaluated Marci Ferrari. This will serve as my Supervisory note and shared attestation. I did perform a substantive portion of the visit including all aspects of the Medical Decision Making. I wore appropriate PPE for the entirety of this encounter. History: In brief, Marci Ferrari is a 82 y.o. male that presents to the emergency department planing of an injury to his left leg. This occurred 1-1/2 weeks ago. He is on Xarelto for atrial fibrillation. He was sent here for evaluation because of the degree of swelling to the left leg. Focused exam: On examination the patient has a large hematoma at the junction of the middle and proximal thirds of the left leg anteriorly. There is an area of skin breakdown. The entire area is ecchymosis. He also has ecchymosis extending into his left ankle and foot. Neurovascular status is intact distally. Differential Diagnosis: Differential diagnosis includes resolving hematoma, infected hematoma. At this time the area is not warm to touch. He is afebrile. I do not believe that this represents an infected hematoma. ED testing and evaluation will be obtained to help differentiate these diagnostic possibilities and determine the most likely cause. Diagnostic testing undertaken, as well as those tests considered but not ordered: X-ray examination demonstrates no evidence of bony abnormality. Hemoglobin is within normal limits. Brief ED course/MDM: In the emergency department the patient was initially evaluated with a history and physical examination. Further diagnostic testing and therapeutic care was based on this initial assessment. In the emergency department the patient has been given reassurance. An Obie wrap is applied to the hematoma. He is encouraged to use his cane. Sources of History: I evaluated other historical sources including previous outpatient records and admission records. Patient is aware of care plan. All diagnostic, treatment, and disposition decisions were made by myself in conjunction with the [facility]. For all further details of the patient's emergency department visit, please see their documentation. (Comment: Please note this report has been produced using speech recognition software and may contain errors related to that system including errors in grammar, punctuation, and spelling, as well as words and phrases that may be inappropriate. If there are any questions or concerns please feel free to contact the dictating provider for clarification.) MARCI MCDUFFIE MD Acute Care [facility] Marci Mcduffie MD 04/05/23 1642 [email or web address] Phone: 04-05-2023 Physician Emergency department Note Formatting of this note is different fro m the original. [facility] ED eMERGENCY dEPARTMENT eNCOUnter Pt Name: Marci Ferrari Birthdate 1940 Date of evaluation: 04/05/2023 Provider: AURELIA TAYLOR CHIEF COMPLAINT Chief Complaint Patient presents with Leg Pain PT presents to ED for possible infection in a wound on his L leg. Pt states he fell onto his leg last week on Saturday. Pt has swelling and redness around wound. HISTORY OF PRESENT ILLNESS (Location/Symptom, Timing/Onset,Context/Setting, Quality, Duration, Modifying Factors, Severity) Note limiting factors. HPI This patient is seen in conjunction with Dr. Mcduffie who also interviewed and evaluated the patient at bedside. Marci Ferrari is a 82 y.o. male who presents to the emergency department complaining of an ongoing wound to the left dave from a fall 2 weeks ago in the garage. Patient states he missed stepped and either hit the concrete floor the bumper of the car. He is scheduled to see the wound care center for the first time this upcoming Saturday. He did see the family physician and was started on a prescription of Keflex. Nursing Notes were reviewed. REVIEW OF SYSTEMS (2+ for4; 10+ for level 5) Review of Systems Constitutional: Negative for chills and fever. HENT: Negative for ear pain and sore throat. Eyes: Negative for pain and visual disturbance. Respiratory: Negative for cough and shortness of breath. Cardiovascular: Negative for chest pain and palpitations. Gastrointestinal: Negative for abdominal pain and vomiting. Genitourinary: Negative for dysuria and hematuria. Musculoskeletal: Negative for arthralgias and back pain. See history of present illness. Skin: Negative for color change and rash. Neurological: Negative for seizures and syncope. All other systems reviewed and are negative. 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 Atrial fibrillation ([facility]) Atrial flutter ([facility]) 06/20/2021 Bandemia 06/20/2021 Bilateral hearing loss 06/20/2021 Bilateral inguinal hernia 03/27/2017 Cervical arthritis 06/20/2021 Diaphragmatic hernia 01/21/2006 Difficulty walking 03/11/2021 Dyspnea on exertion 06/20/2021 Edentulous 06/20/2021 Encounter for long-term (current) use of insulin ([facility]) 12/26/2010 Esophagitis 01/21/2006 Essential hypertension 12/26/2010 Full thickness rotator cuff tear 10/18/2017 History of radiofrequency ablation (RFA) for complex left atrial arrhythmia 11/03/2015 Hypercoagulable state ([facility]) 03/11/2021 Hyperlipidemia Hypertension Impingement syndrome of shoulder region 10/18/2017 Incisional hernia 07/03/2007 Leukocytosis 03/11/2021 Lower urinary tract symptoms due to benign prostatic hyperplasia 03/11/2021 Obesity with body mass index 30 or greater 06/20/2021 Obstructive sleep apnea syndrome 09/22/2013 Pelvic pain in male 06/20/2021 Pes cavus 05/15/2018 Pulmonary hypertension ([facility]) 03/11/2021 S/P CABG (coronary artery bypass graft) 06/20/2021 Senile purpura ([facility]) 03/11/2021 Septic prepatellar bursitis 05/13/2012 Temporal arteritis ([facility]) 03/11/2021 Transient ischemic attack 11/04/2015 SURGICALHISTORY Past Surgical History: Procedure Laterality Date ABLATION OF DYSRHYTHMIC FOCUS CARDIAC SURGERY triple bypass CURRENT MEDICATIONS Previous Medications No medications on file Patient has no known allergies. FAMILY HISTORY No family history on file. SOCIAL HISTORY Social History Socioeconomic History Marital status: Tobacco Use Smoking status: Former Smokeless tobacco: Never Substance and Sexual Activity Alcohol use: Yes Drug use: No SCREENINGS PHYSICAL EXAM (5+ for level 4, 8+ for level 5) @EDTRIAGEVSS@ Physical Exam Vitals and nursing note reviewed. Constitutional: General: He is not in acute distress. Appearance: Normal appearance. He is well-developed. HENT: Head: Normocephalic and atraumatic. Eyes: Conjunctiva/sclera: Conjunctivae normal. Cardiovascular: Rate and Rhythm: Normal rate and regular rhythm. Heart sounds: No murmur heard. Pulmonary: Effort: Pulmonary effort is normal. No respiratory distress. Breath sounds: Normal breath sounds. Musculoskeletal: General: No swelling. Comments: Patient has a superficial abrasion measuring approximately the size of $0.50 piece to the proximal anterior midline dave with surrounding hematoma and old ecchymosis that extends down into the ankle. Dorsalis pedis pulse is easily appreciated. Distal sensory innervation is intact. No open lesion or drainage. Skin: General: Skin is warm and dry. Neurological: Mental Status: He is alert and oriented to person, place, and time. Psychiatric: Mood and Affect: Mood normal. Behavior: Behavior normal. DIAGNOSTIC RESULTS EKG (Per Emergency Physician): RADIOLOGY (Per EmergencyPhysician): Interpretation per the Radiologist below, if available at the time of this note: @EDRISRSLT@ : Labs Reviewed CBC WITH AUTO DIFFERENTIAL - Abnormal Result Value Auto WBC 10.7 RBC 3.99 (*) Hemoglobin 11.7 (*) Hematocrit 35.3 (*) MCV 88.6 MCH 29.4 MCHC 33.2 RDW 16.1 (*) Platelets 252 MPV 9.2 nRBC 0.0 Neutrophils Relative 72.1 Lymphocytes Relative 12.7 (*) Monocytes Relative 11.9 (*) Eosinophils Relative 2.7 Basophils Relative 0.6 Neutrophils Absolute 7.7 (*) Lymphocytes Absolute 1.4 Monocytes Absolute 1.3 (*) Eosinophils Absolute 0.3 Basophils Absolute 0.1 COMPREHENSIVE METABOLIC PANEL - Abnormal SODIUM 135 POTASSIUM 4.6 CHLORIDE 105 CARBON DIOXIDE 23 ANION GAP 7 UREA NITROGEN 39 (*) CREATININE 1.53 (*) GLUCOSE 102 (*) CALCIUM 8.7 AST (SGOT) 42 ALT 20 ALKALINE PHOSPHATASE 87 ALBUMIN 4.0 BILIRUBIN, TOTAL 0.5 TOTAL PROTEIN 6.9 eGFR 44.8 (*) All other labs were within normal range or not returned as of this dictation. EMERGENCY DEPARTMENT COURSE and DIFFERENTIALDIAGNOSIS/MDM: Vitals: Vitals: 04/05/23 1444 04/05/23 1625 BP: (!) 142/70 132/68 BP Location: Left arm Patient Position: Lying Pulse: 72 71 Resp: 12 16 Temp: 36.4 C (97.6 F) TempSrc: Temporal SpO2: 97% 99% Medications vancomycin (Vancocin) 2000 mg in 0.9% sodium chloride 500 mL IVPB (compounded premix) (2,000 mg IntraVENous New Bag 04/05/23 1732) Medical Decision Making Problems Addressed: Encounter for post-traumatic wound check: complicated acute illness or injury Hematoma: complicated acute illness or injury Amount and/or Complexity of Data Reviewed Labs: ordered. Radiology: ordered. Patient presents to the emergency department complaining of a left dave wound from a fall 2 weeks ago in the garage. Patient states he either hit the cement floor or the bumper of the car, he is not sure. He was seen by his primary care physician a week ago and got set up with follow-up care with the wound care center here at [facility] but was also started on on a prescription for Keflex over concern of early infection. Differential diagnosis includes contusion of the leg, hematoma, seroma, tibial plateau fracture, tibia fracture, sprain Chronic conditions impacting care: None Social determinants affecting health: Alcohol use. Former history of smoking. ED diagnostics included an x-ray of the left hip. Per my review interpretation and radiology confirmation, no acute findings were made. Patient also had basic laboratory studies including a CBC with a white count of 10.7, no shift. Hemoglobin 11.7. CMP was also obtained and reviewed. Patient be placed in an Obie wrap. He is advised to use his cane at home. He can apply warm compresses to the area. He can finish his antibiotics. He is to follow-up with the wound care center on Saturday as planned. He can return should signs and symptoms worsen in any way or any other concerns develop. The patient was given home-going instructions on hematomas. Patient expressed an understanding of verbal instruction and had no further questions at the time of discharge. CONSULTS: None PROCEDURES: Unless otherwise noted below, none Procedures Patients symptoms are consistent with sepsis, severe sepsis, or septic shock (If yes use .sepsiscoremeasure ): No FINAL IMPRESSION 1. Hematoma 2. Encounter for post-traumatic wound check DISPOSITION/PLAN DISPOSITION Discharge 04/05/2023 05:00:27 PM PATIENT REFERRED TO: Wound Care Center Saturday as planned DISCHARGE MEDICATIONS: New Prescriptions No medications on file @[facility]([id number]:LAST:1)@ (Please note: Portions of this note were completed with a voice recognition program. Efforts were made to edit thedictations but occasionally words and phrases are mis-transcribed.) Form [id number] AURELIA TAYLOR (electronically signed) Emergency Medicine Provider AURELIA Taylor 04/05/23 1654 AURELIA Taylor 04/05/23 1734 [facility] 12-23-2022 Note HNO ID: [id number] Author: Ernestine oTbin RN Service: Care Management Author Type: Registered Nurse Type: Care Mgt Initial Assessment Filed: 12/23/2022 1:03 PM Note Text: CARE MANAGEMENT: ASSESSMENT AND DISCHARGE PLAN SERVICE DATE: December 23, 2022 SERVICE TIME: 12:53 PM PCP: Ronaldo Mancini MD Primary Contact: Extended Emergency Contact Information Primary Emergency Contact: Jemma Ferrari Address: [address] [place] [address] [place] [address] Mobile Relation: Spouse Admission Status: Observation Insurance Provider: [employer] MEDICARE PPO Discharge Planning requested by: Per Department Practice Potential Transition Plans Home Advance Directives Current Advance Directive: None Nerve Specialist Attempted to Assist with AD Completion: No Unable to Assist Due To:: Other: See Comment Current Living Arrangements and Support Lives with: Spouse/significant other Type of Residence: Private Residence (House) Does the patient have to climb stairs at home?: Yes Support: Family members, Spouse/significant other How do you manage to accomplish the following: Independent: Ambulation;Bathe/Shower;Dress;Meals/Meal Prep;Going to the bathroom;Medication Management;Transportation to appointments/community Current Services/Equipment Current Post-Acute Service(s): None Discharge Planning Patient Goal(s): Be able to go home, General wellness [place] of Choice Explained: [place] of Choice Given: No Reason Not Given: No placements necessary Are you interested in bedside delivery of your medications? No Discharge Planning Participant(s): Patient;Spouse/significant other;Children Patient/Family Comments: Caregiver Assessment: Caregiver is ready, willing and able to meet the patient's needs as recommended by the inter-professional team: No Caregiver needed Name of Caregiver: spouse and children are available and willing to help if patient needs anything Transport at Discharge: Transportation Arrangements: Car Needs Prior to Discharge: Needs Prior to Discharge: Discharge Prescriptions;Procedure Procedure Needed: MRI and ECHO results Post-Acute Discharge Plan: Patient from home with spouse, independent, +drives, and works out daily at the [facility]. Patient admitted to [facility] under OBS with some transient confusion r/o TIA. Patient does have a CPAP, but has not been using for awhile. He stated that somewhere along the line he thought he was told he did not need to use it anymore. Spouse said that he was confused with implantable DANIAL device information someone told him. CM encouraged patient to discuss this with his PCP and educated patient on the risks of noncompliance in DANIAL. MRI results pending ECHO - results pending +PCP - Dr. Mancini +Rx - [facility] This patient has been screened for Care Management Transitional Planning Services. At this time, it does not appear this patient will require transition planning services. Should this change, and the patient require transition/discharge planning services during this admission, please call [phone]. Ernestine Tobin RN December 23, 2022 12:56 PM SIGNATURE: Ernestine Tobin RN PATIENT NAME: Marci Ferrari DATE: December 23, 2022 TIME: 12:53 PM CONTACT #: [phone] [facility] 12-22-2022 Note HNO ID: [id number] Author: Sander Powers MD Service: ? Author Type: Physician Type: Progress Notes Filed: 12/22/2022 3:12 PM Note Text: Marci Ferrari is a 82 year old male who presents with Stumbling, confusion, high blood pressure (Since yesterday evening) HPI patient 82-year-old male who presented to the [facility] this afternoon accompanied by his with complaint of tumbling confusion high blood pressure and disoriented the symptoms started last evening at home patient states that patient did not even know who she was, patient have atrial fibrillation and currently taking Xarelto. 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 spironolactone (ALDACTONE) 50 mg tablet hydroCHLOROthiazide [address] (PROTONIX) 40 mg tablet multivitamin with minerals (ONE-A-DAY 50 PLUS ORAL) Take by mouth. metoprolol succinate ER (TOPROL XL) 25 mg 24 hr tablet Take 25 mg by mouth once daily. ramipril (ALTACE) 10 mg capsule Take 10 mg by mouth twice daily. atorvastatin (LIPITOR) 10 mg tablet 20 mg daily 0 No current facility-administered medications for this visit. Social History Tobacco Use Smoking status: Former Packs/day: 1.00 Years: 40.00 Pack years: 40.00 Types: Cigarettes Quit date: 03/09/2002 Years since quittin.8 Smokeless tobacco: Never Substance Use Topics Alcohol use: Yes Comment: [facility] Drug use: No Alcohol Use: Yes ([facility]) Tobacco Use: 1 packs/day, for 40 years. Quit 03/09/2002. Types: Cigarettes FAMILY HISTORY Problem Relation Age of Onset None Other Review of Systems Constitutional: Negative for chills, fever, malaise/fatigue and weight loss. HENT: Negative for ear pain, nosebleeds, sinus pain and tinnitus. Eyes: Negative for blurred vision and pain. Respiratory: Negative for shortness of breath and wheezing. Cardiovascular: Negative for chest pain, palpitations and leg swelling. Gastrointestinal: Negative for abdominal pain, blood in stool, diarrhea, nausea and vomiting. Genitourinary: Negative for dysuria, frequency and hematuria. Musculoskeletal: Negative for back pain and falls. Neurological: Negative for dizziness and headaches. BP 170/99 Pulse 85 Temp 99.5 Resp 18 Wt 225 lb (102.1kg) SpO2 93% Physical Exam Vitals and nursing note reviewed. Constitutional: Appearance: Normal appearance. He is obese. HENT: Right Ear: Tympanic membrane and ear canal normal. Left Ear: Tympanic membrane and ear canal normal. Nose: Nose normal. Mouth/Throat: Mouth: Mucous membranes are moist. Pharynx: Oropharynx is clear. Eyes: Extraocular Movements: Extraocular movements intact. Conjunctiva/sclera: Conjunctivae normal. Pupils: Pupils are equal, round, and reactive to light. Cardiovascular: Rate and Rhythm: Normal rate. Rhythm irregular. Heart sounds: Normal heart sounds. Pulmonary: Breath sounds: Normal breath sounds. Abdominal: Palpations: Abdomen is soft. Tenderness: There is no abdominal tenderness. Musculoskeletal: Cervical back: Normal range of motion and neck supple. Right lower leg: No edema. Left lower leg: No edema. Neurological: General: No focal deficit present. Mental Status: He is alert. Psychiatric: Mood and Affect: Mood normal. ASSESSMENT/PLAN: 1. Confusion - ICD9: 298.9, ICD10: R41.0 Complications of the disease were discussed with the patient. 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 Hand Infection Discharge Instruction Soaks -Continue your soaks as directed in hospital. -Use unscented antibacterial soap and warm, clean water (i.e. [place], Dial, [facility] soap works well) -Soak 3 times per day for 20 minutes each time. -Move your hand around in the water and move your fingers as much as possible while soaking. -After each soak, pat your hand dry, pull packing tomorrow around noon, repack wound with dry gauze gently into your wound, and cover your wound with dry sterile gauze and an obie wrap as directed while you were in the hospital. -Continue soaks until you see your hand surgeon or until your wound is completely healed with no pain and no drainage. Pain -Keep your hand iced and elevated to the level of your heart at all times until follow up -Take your narcotic only as needed for pain. Decrease your use of this medication as tolerated and transition to tylenol/ibuprofen. -Do not exceed 3 grams of tylenol per day from all sources. Antibiotics -Take your antibiotics as prescribed. -Do not discontinue your antibiotics early, even if the infection appears healed unless directed by your doctor. Your infection can come back if you stop antibiotics too soon. Precautions Call for a temperature over 101 F. Take the pain medications as needed for pain. Pain pills can cause constipation. Use over the counter stool softeners like Colace to avoid constipation. If Colace is not effective use a gentle over the counter laxative such as Miralax Please refer to your medication sheet for more information regarding any prescriptions you have been given to take after surgery. Follow up office visit You may follow up OP with your Miguel A doctor managing your left 5th digit to manage this wound as well or Dr. Ball would like see you within 1 week after discharge from the hospital. Please call the office to schedule an appointment documented in this encounter [facility] Work Phone: 06-26-2021 History of Present illness Narrative DATE OF SERVICE: 06/24/2021 HISTORY OF THE PRESENT ILLNESS: Patient is an 80-year-old male who [facility] accompanied by his with a complaint of a fall. It happened yesterday about 1 oclock in the afternoon at home in the garage. The patient walked up the step and somehow, he fell and hit his head and also injured his left 5th finger. Patient did not recall anything before he fell. He denied any dizziness, any nausea or vomiting, denied any chest pain or difficulty breathing. Patient fell and hit his head, but he did not remember whether he hit the head on the step or on the floor. He denied loss of consciousness and he lacerated his left 5th finger, and the bleeding nonstop since yesterday afternoon. Patient on a blood thinner and due to concern, he is coming for further evaluation and treatment. He denied any chest pain. He denied any difficulty breathing. He denied any nausea or vomiting, denied any headache. MEDICATIONS: Please see the patient list. ALLERGIES: No known drug allergies. SOCIAL HISTORY: The patient is a nonsmoker and occasionally an alcohol drinker. FAMILY HISTORY: Significant for heart disease and high blood pressure. REVIEW OF SYSTEMS: Per HPI. PHYSICAL EXAMINATION: Vital Signs: Temperature 97.1, respirations 20, pulse 70, blood pressure 153/70, pulse oximetry 97%. The pain level was 8/10 on the finger. Patients weight 225 pounds. His last tetanus shot was 2 months ago. General: This is an 80-year-old male, alert, and oriented x2, did not appear in pain or in acute distress. HEENT: Unremarkable except for the top of the head, appeared 2 small abrasions with no active bleeding and positive for minimal swelling and tender with touch. Neck: Supple with full range of motion. Lungs: Clear to auscultation, bilaterally. Heart: Regular rhythm and rate. Normal heart sounds. Abdomen: Soft and nontender. Left 5th finger: Lacerated approximately 5 cm with bleeding. Neurological: Cranial nerves 2-12 were within normal limits. No focal deficits appreciated. IMPRESSION: 1. Head concussion. 2. Left 5th finger laceration status post fall. PLAN: Discussed the finding with patient and patients and due to the concern of the clinical finding, we referred the patient to the ER for further evaluation and treatment. Patient chose to go to [facility] in [place]. The patient to go to ER in private care. 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 Son MD JESSICA Coulter/[id number] [facility] File#: [id number] END OF DOCUMENT / CHANGE LOG FOLLOWS Last Edited By Elec. Signed By Sander Powers MD #JANET Sander Powers MD #JANET on 07/15/2021 14:36 ET on 07/15/2021 14:36 ET Revision Number - 2 ^^^ Verified/Reviewed by 07/15/21 1436 JANET [facility] PATIENT NAME: FERRARIMARCI Elizabeth [address] [address] [place] MEDICAL REC #: [id number] [place] [address] [facility] documented in this encounter [facility] documented in this encounter [facility] Work Phone: Evaluation note* Diagnosis Hand trauma, left, initial encounter documented in this encounter [facility] Work Phone: Evaluation note* Diagnosis Infected abrasion of left hand, initial encounter- Primary documented in this encounter [facility] Work Phone: Evaluation note* Diagnosis Bilateral foot-drop Other acquired deformity of ankle and foot documented in this encounter [facility] Work Phone: Evaluation note* Diagnosis Hematoma- Primary Contusion of unspecified site Encounter for post-traumatic wound check [facility] Diagnosis Generalized edema- Primary Edema Traumatic open wound of left lower leg, initial encounter Pain in left lower leg Skin ulcer of calf, left, with fat layer exposed (HCC) Venous insufficiency (chronic) (peripheral) Unspecified venous (peripheral) insufficiency Hematoma of left lower extremity, initial encounter [facility] Diagnosis Generalized edema- Primary Edema Traumatic open wound of left lower leg, initial encounter Pain in left lower leg Skin ulcer of calf, left, with fat layer exposed (HCC) Venous insufficiency (chronic) (peripheral) Unspecified venous (peripheral) insufficiency Hematoma of left lower extremity, initial encounter Wound of left lower extremity, subsequent encounter [facility] Diagnosis Generalized edema- Primary Edema Traumatic open wound of left lower leg, initial encounter Pain in left lower leg Skin ulcer of calf, left, with fat layer exposed (HCC) Venous insufficiency (chronic) (peripheral) Unspecified venous (peripheral) insufficiency Wound of left lower extremity, subsequent encounter Traumatic hematoma of lower leg, left, subsequent encounter [facility] Diagnosis Generalized edema- Primary Edema Traumatic open wound of left lower leg, initial encounter Skin ulcer of calf, left, with fat layer exposed (HCC) Pain in left lower leg Traumatic hematoma of lower leg, left, subsequent encounter Wound of left lower extremity, subsequent encounter Venous insufficiency (chronic) (peripheral) Unspecified venous (peripheral) insufficiency [facility] Diagnosis Skin ulcer of calf, left, with fat layer exposed (HCC)- Primary Traumatic open wound of left lower leg, initial encounter Generalized edema Edema Pain in left lower leg Traumatic hematoma of lower leg, left, subsequent encounter Wound of left lower extremity, subsequent encounter Venous insufficiency (chronic) (peripheral) Unspecified venous (peripheral) insufficiency [facility] Diagnosis Skin ulcer of calf, left, with fat layer exposed (HCC)- Primary Venous insufficiency (chronic) (peripheral) Unspecified venous (peripheral) insufficiency Traumatic open wound of left lower leg, initial encounter Generalized edema Edema Pain in left lower leg Wound of left lower extremity, subsequent encounter Traumatic hematoma of lower leg, left, subsequent encounter [facility] Diagnosis Skin ulcer of calf, left, with fat layer exposed (HCC)- Primary Venous insufficiency (chronic) (peripheral) Unspecified venous (peripheral) insufficiency Traumatic open wound of left lower leg, initial encounter Generalized edema Edema Pain in left lower leg Hematoma of left lower extremity, initial encounter Wound of left lower extremity, subsequent encounter [facility] Diagnosis Skin ulcer of calf, left, with fat layer exposed (HCC)- Primary Venous insufficiency (chronic) (peripheral) Unspecified venous (peripheral) insufficiency Traumatic open wound of left lower leg, initial encounter Pain in left lower leg Generalized edema Edema Traumatic hematoma of lower leg, left, subsequent encounter Wound of left lower extremity, subsequent encounter [facility] Preop testing- Primary Preoperative examination, unspecified Primary osteoarthritis, right shoulder Strain of muscle(s) and tendon(s) of the rotator cuff of right shoulder, initial encounter documented in this encounter [facility] Discharge instructions* Attachments The following attachments cannot be sent through Care Everywhere. * Contusion Discharge Instructions (Estonian) [facility] Directives No Advanced Directives Records FoundDocuments on File Type Date Recorded Patient Disability Manager Expl anation ACP-Advance Directive ACP-Power of Broommaker Documents on File Type Date Recorded Patient Disability Manager Expl anation ACP-Advance Directive ACP-Power of Broommaker Documents on File Type Date Recorded Patient Disability Manager Expl anation Advance Directive(s) 03/26/2016 7:38 AM Advance Directive(s) 01/24/2016 10:10 PM Summary Purpose Family History No Family History Records FoundNo Family History Records FoundNo Family History Records FoundNo Family History Records FoundNo Family History Records FoundNo Family History Records FoundNo Family History Records Found Reason for Referral Specialty Diagnoses / Procedures Referred By Hilda t Referred To Contact Radiology Diagnoses Bilateral foot-drop Procedures MRI LUMBAR SPINE WO CONTRAST José Cruz MD [address] [place] [address] Referral ID Status Reason Start Date Expiration Date Visits Re quested Visits Authorized [id number] Open 07/05/2021 07/05/2022 1 1 Additional Source Comments Reason for Visit (unrecogniz ed section and content) Specialty Diagnoses / Procedures Referred By Hilda t Referred To Contact Radiology Diagnoses Bilateral foot-drop Procedures MRI LUMBAR SPINE WO CONTRAST José Cruz MD [address] [place] [address] Referral ID Status Reason Start Date Expiration Date Visits Re quested Visits Authorized [id number] Open 07/05/2021 07/05/2022 1 1 Reason Comments Leg Pain PT presents to ED fo r possible infection in a wound on his L leg. Pt states he fell onto his leg last week on Saturday. Pt has swelling and redness around wound. Reason Comments Wound Care Reason Comments Wound Check Ordered Prescriptions (unrec ognized section and content) Scheduled Active and Recently Administ ered Medications (unrecognized section and content) Linked Groups Order Group 1: Saline lock IV (COMPLETED) Routine, CONTINUOUS, Starting on Chikis 06/29/21 at 1600, Until Specified And sodium chloride flush 0.9 % injection 3 mLJump to med 3 mL, IntraVENous, EVERY 8 HOURS, First dose on Chikis 06/29/21 at 1600
Flush line with 3-5 mL
Scheduled Medication Order 04/03/2023 04/04/2023 04/05/2023 vancomycin (Vancocin) 2000 mg in 0.9% sodium chloride 500 mL IVPB (compounded premix) (COMPLETED) 2,000 mg, IntraVENous, at 250 mL/hr, Administer over 120 Minutes, Once, On Sat04/05/23 at 1525, For 1 dose, Suspected Indication (Select all that apply): Skin and Soft Tissue Infection 1731 (New Bag - Prov ider: Madhavi Green RN)2019 (Stopped - Provider: Teressa Palomares LPN) (unrecognized sect ion and content) No Status Records FoundNo Status Records FoundNo Status Records FoundNo Status Records FoundNo Status Records FoundNo Status Records FoundNo Status Records Found INFORMATION SOURCE (unrecogn ized section and content) DATE CREATED AUTHOR AUTHOR'S ORGANIZ ATION 10/24/2021 [facility] [place] DATE CREATED AUTHOR AUTHOR'S ORGANIZ ATION 11/08/2021 [facility] DATE CREATED AUTHOR AUTHOR'S ORGANIZ ATION 03/15/2022 [facility] DATE CREATED AUTHOR AUTHOR'S ORGANIZ ATION 12/25/2022 [facility] DATE CREATED AUTHOR AUTHOR'S ORGANIZ ATION 08/08/2023 [facility] DATE CREATED AUTHOR AUTHOR'S ORGANIZ ATION 11/20/2023 [facility] Care Teams (unrecognized sec tion and content) 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 Start Date End Date Onel Marx PCP - General 12/01/03 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 Start Date End Date Ronaldo Mancini MD [address] [place] [phone] PCP - General 02/07/19 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 Start Date End Date Ronaldo Mancini MD [address] [place] [id number] PCP - General 02/07/19 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 Start Date End Date Ronaldo Mancini MD [address] [place] [phone] PCP - General 02/07/19 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 Start Date End Date Ronaldo Mancini MD [address] [place] [phone] PCP - General 02/07/19 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 Start Date End Date Ronaldo Mancini MD [address] [place] [phone] PCP - General 02/07/19 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 Start Date End Date Ronaldo Mancini MD [address] [place] [phone] PCP - General 02/07/19 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 Start Date End Date Ronaldo Mancini MD [address] [place] [id number] PCP - General Family Medicine 12/22/22 Source Comments (unrecognize d section and content) In the event this informatio n is protected by the Federal Confidentiality of Alcohol and Drug Abuse Patient Records regulations: The Federal rules restrict any use of the information to criminally investigate or prosecute any alcohol or drug abuse patient.[facility] the event this information is protected by the Federal Confidentiality of Alcohol and Drug Abuse Patient Records regulations: The Federal rules restrict any use of the information to criminally investigate or prosecute any alcohol or drug abuse patient.[facility] FOR RECORDS PERTAINING TO PATIENTS WHO ARE OR HAVE BEEN ENROLLED IN A CHEMICAL DEPENDENCY/SUBSTANCEABUSE PROGRAM, SOME INFORMATION MAY BE OMITTED. This clinical summary was aggregated from multiple sources. Caution should be exercised in using it in the provision of clinical care. This summary normalizes information from multiple sources, and as a consequence, information in this document may materially change the coding, format and clinical context of patient data. In addition, data may be omitted in some cases. CLINICAL DECISIONS SHOULD BE BASED ON THE PRIMARY CLINICAL RECORDS. [facility] [employer] [facility]. provides no warranty or guarantee of the accuracy or completeness of information in this document.
--- NOTE | 2023-11-21 14:56 | STRESSREP ---
Stress Test Report Pharmacologic myocardial perfusion stress test. 82-year-old man with a history of preop evaluation Resting EKG demonstrates atrial fibrillation with with a rate of 66 bpm. Resting blood pressure is 130/72 mmHg. 0.4 mg of regadenoson was infused per usual protocol followed by rapid intravenous saline flush injection. Continuous EKG monitoring was performed. The maximum heart rate was 92 bpm which was 67% of max impacted heart rate the maximum workload was 1 metabolic equivalent. At rest there were no ST or T wave changes noted to suggest ischemia and at peak infusion nonspecific ST changes were noted which did not meet the criteria for ischemia. No clinical angina is noted. The final blood pressure was 118/62 mmHg. Myocardial perfusion protocol. 14.6 mCi of technetium 99m sestamibi was injected at rest. 0.4 mg of regadenoson was infused per usual protocol. At peak infusion 44 point mCi of technetium 99m sestamibi was injected stress images were obtained stress and rest images were reconstructed and compared in the short axis vertical long and horizontal long axis. Gated images were also obtained. Perfusion SPECT analysis: Review of the stress images demonstrate normal uptake of tracer noted in all areas of the myocardium. The resting images similar demonstrated normal uptake of tracer noted in all areas of the myocardium. No areas of reversibility are noted to suggest ischemia and no previous infarct is noted. Gated SPECT analysis: The gated ejection fraction is 55%. Conclusion: Normal pharmacologic myocardial perfusion stress test. Preserved ejection fraction.
== END | disposition home or self-care (01) ==
PROVIDERS: PCP Family Medicine; Referring Provider Physician Assistant Medical; Visit Provider Physician Assistant Medical
DX: Z01.810 Encounter for preprocedural cardiovascular examination (principal); I48.11 Longstanding persistent atrial fibrillation; I25.10 Atherosclerotic heart disease of native coronary artery without angina pectoris; I10 Essential (primary) hypertension; E78.00 Pure hypercholesterolemia, unspecified; G45.9 Transient cerebral ischemic attack, unspecified; Z79.01 Long term (current) use of anticoagulants; Z95.1 Presence of aortocoronary bypass graft
CPT/HCPCS: 78452; 93017; 93306; A9500; Q9957; A4216; C8929; J2785

== ENCOUNTER → 2024-01-07 | Outpatient (CLI) | payer MEDICARE, SELFPAY ==
[2024-01-07 11:48] LABS: BNP,B-Type NATRIURETIC PEPTIDE 131.4 pg/mL (0-100)
[2024-01-07 11:57] LABS: Anion Gap 4 (5-15); BUN 36 mg/dL (7-18); BUN/Creat Ratio 19.4 RATIO (10-20); Calcium,Total 8.9 mg/dL (8.5-10.1); Chloride 109 mmol/L (98-107); Creatinine, Serum 1.86 mg/dL (0.70-1.30); EST Glomerular Filtration Rate 37 mL/min (>60); Est Glom Filt Rate - Afr Amer 45 mL/min (>60); Glucose 110 mg/dL (74-106); Potassium 5.1 mmol/L (3.5-5.1); Sodium Level 139 mmol/L (136-145)
== END | disposition home or self-care (01) ==
PROVIDERS: PCP Family Medicine; Referring Provider Nurse Practitioner Gerontology; Visit Provider Nurse Practitioner Gerontology
DX: R06.09 Other forms of dyspnea (principal)
CPT/HCPCS: 36415; 80048; 83880